=== PATIENT | male | born 1935 | race Caucasian/White ===

== ENCOUNTER → 2016-11-09 | Outpatient (CLI) | payer MEDICARE, BC ==
[2016-11-09 14:14] LABS: CALCIUM LEVEL 8.3 MG/DL (8.8-10.2)
== END ==
LOC: M WUC 12:07
PROVIDERS: ATTEND Internal Medicine Endocrinology, Diabetes & Metabolism
DX: E83.51 Hypocalcemia (principal)

== ENCOUNTER → 2016-12-08 | Outpatient (CLI) | payer MEDICARE, BC ==
[~2016-12-08] VITALS: Ht 172.7 cm; Wt 93.4 kg
[~2016-12-08] MED LIST: ASPI81TA85 PO; ATOR1TAB18 PO; CALC1CAP31 PO; CALCTAB41 PO; DERM0.014 AU; DORZ2OPD OD; FERR325T3 PO; FISH100049 PO; LATA5OPD OD; LEVO112T2 PO; LEVO75TA4 PO; LIDOCAINE 2% INJ 100 MG/5 ML SDV (FOR ANES.) As Ordered ONE; LISI-538 PO; LISI20TA3 PO; NS 1,000 ML IV SCH; POTA10TA2 PO; POTA20TA PO; POTA99TA PO; PROPOFOL 500 MG/50 ML VIAL As Ordered ONE; VITA100037 PO; VITA250011 PO
--- NOTE | 2016-12-08 08:56 | ROOR ---
Patient Name: Bebeto Samano Procedure Date: 12/08/2016 8:38 AM Date of : 1935 Age: 81 Room: [facility] Gender: Male Note Status: Finalized Procedure: Colonoscopy Indications: High risk colon cancer surveillance: Personal history of colonic polyps, Last colonoscopy: August 2013 Providers: Paulo PONCE MD Referring MD: JASWINDER BEY MD Requesting Provider: Medicines: Monitored Anesthesia Care Complications: No immediate complications. Procedure: Pre-Anesthesia Assessment: - The heart rate, respiratory rate, oxygen saturations, blood pressure, adequacy of pulmonary ventilation, and response to care were monitored throughout the procedure. The Colonoscope was introduced through the anus and advanced to the terminal ileum, with identification of the appendiceal orifice and IC valve. The colonoscopy was performed without difficulty. The patient tolerated the procedure well. The quality of the bowel preparation was good. Findings: The perianal and digital rectal examinations were normal. (Exam: Complete, Prep: Good or Excellent.) Internal hemorrhoids were found during retroflexion. The hemorrhoids were medium-sized. The entire examined colon appeared normal on direct and retroflexion views. Impression: - (Exam: Complete, Prep: Good or Excellent.) - Internal hemorrhoids. - The entire examined colon is normal on direct and retroflexion views. - No specimens collected. Recommendation: -Pt can stop surveillance/screening - Repeat colonoscopy As Needed. Paulo Ponce MD Paulo PONCE MD 12/08/2016 8:55:48 AM This report has been signed electronically. Number of Addenda: 0 Note Initiated On: 12/08/2016 8:38 AM Estimated Blood Loss: Estimated blood loss: none.
[2016-12-08 09:20] VITALS: BP 130/78
== END | disposition home or self-care (01) ==
LOC: M OPP 07:59
PROVIDERS: ATTEND Internal Medicine Gastroenterology
DX: Z12.11 Encounter for screening for malignant neoplasm of colon (principal); K64.8 Other hemorrhoids; I10 Essential (primary) hypertension; E78.00 Pure hypercholesterolemia, unspecified; M19.90 Unspecified osteoarthritis, unspecified site; J44.9 Chronic obstructive pulmonary disease, unspecified; J45.909 Unspecified asthma, uncomplicated; G47.30 Sleep apnea, unspecified; E03.9 Hypothyroidism, unspecified; Z97.2 Presence of dental prosthetic device (complete) (partial); Z97.4 Presence of external hearing-aid; Z87.891 Personal history of nicotine dependence; Z79.899 Other long term (current) drug therapy
CPT/HCPCS: 99156; G0105

== ENCOUNTER → 2017-02-27 | Outpatient (CLI) | payer MEDICARE, BC ==
[~2017-02-27] MED LIST changes: -LIDOCAINE 2% INJ 100 MG/5 ML SDV (FOR ANES.) As Ordered ONE; -NS 1,000 ML IV SCH; -POTA10TA2 PO; +POTA1TAB23 PO; -PROPOFOL 500 MG/50 ML VIAL As Ordered ONE
[2017-02-27 20:10] LABS: FREE T4 1.75 NG/DL (0.76-1.46)
== END ==
LOC: M WUC 15:11
PROVIDERS: ATTEND Physician Assistant Medical
DX: E83.51 Hypocalcemia (principal)

== ENCOUNTER → 2017-04-03 | Outpatient (CLI) | payer MEDICARE, BC ==
[~2017-04-03] MED LIST changes: -ATOR1TAB18 PO; +ATOR80TA59 PO; -VITA100037 PO; +VITA100067 PO
--- NOTE | 2017-04-03 15:11 | REP ---
CERVICAL SPINE SERIES: Full eight-view cervical spine series is performed. There is no compression fracture or malalignment, with normal cervical lordosis. There is no prevertebral soft tissue swelling. Moderate spurring is seen anteriorly at C4 with mild spurring of C5 through C7. Disc spaces are relatively well maintained. There is diffuse moderate narrowing, sclerosis and spurring at the posterior facet joints. I do not see radiographic evidence of significant neural foraminal narrowing. IMPRESSION: Diffuse degenerative changes as above. Signed by Brad Smiley MD 04/03/2017 05:13 P
== END ==
LOC: M RAD 14:31
PROVIDERS: ATTEND Family Medicine
DX: M54.2 Cervicalgia (principal)
CPT/HCPCS: 72052; G0463

== ENCOUNTER → 2017-04-18 | Outpatient (CLI) | payer MEDICARE, BC ==
[~2017-04-18] MED LIST changes: +ATOR1TAB18 PO; -ATOR80TA59 PO; +VITA100037 PO; -VITA100067 PO
== END ==
LOC: M WUC 14:35
PROVIDERS: ATTEND Nurse Practitioner Women's Health
DX: Z85.46 Personal history of malignant neoplasm of prostate (principal)

== ENCOUNTER → 2017-05-02 | Outpatient (CLI) | payer MEDICARE, BC ==
[~2017-05-02] MED LIST changes: -ATOR1TAB18 PO; +ATOR80TA59 PO; -VITA100037 PO; +VITA100067 PO
[2017-05-02 13:50] LABS: CALCIUM LEVEL 8.3 MG/DL (8.8-10.2)
[2017-05-02 13:58] LABS: FREE T4 1.64 NG/DL (0.76-1.46)
== END ==
LOC: M WUC 10:10
PROVIDERS: ATTEND Internal Medicine Endocrinology, Diabetes & Metabolism
DX: E89.0 Postprocedural hypothyroidism (principal)

== ENCOUNTER → 2017-05-12 | Outpatient (REF) | payer MEDICARE, BC | LOC: M SFHCPLAZ 15:53 | PROVIDERS: ATTEND Family Medicine | DX: L82.1 Other seborrheic keratosis (principal) | CPT/HCPCS: 11100; 88305; G0463 ==

== ENCOUNTER → 2017-06-29 | Outpatient (REF) | payer MEDICARE, BC ==
[2017-06-29 14:11] LABS: FREE T4 1.81 NG/DL (0.76-1.46)
== END ==
LOC: M LABDRAW1 09:38
PROVIDERS: ATTEND Internal Medicine Endocrinology, Diabetes & Metabolism
DX: E89.0 Postprocedural hypothyroidism (principal)

== ENCOUNTER → 2017-09-25 | Outpatient (REF) | payer MEDICARE, BC ==
[2017-09-25 17:23] LABS: CALCIUM LEVEL 8.2 MG/DL (8.8-10.2)
== END ==
LOC: M LABDRAWP 15:35
PROVIDERS: ATTEND Internal Medicine Endocrinology, Diabetes & Metabolism
DX: E89.0 Postprocedural hypothyroidism (principal); E83.51 Hypocalcemia

== ENCOUNTER 2017-12-10 14:05 | Emergency (ER) | payer MEDICARE, BC | END 2017-12-10 17:27 | disposition left against medical advice (07) | LOC: M ED 14:05 | DX: Z53.21 Procedure and treatment not carried out due to patient leaving prior to being seen by health care provider (principal) ==

== ENCOUNTER → 2017-12-22 | Outpatient (REF) | payer MEDICARE, BC ==
[2017-12-22 17:51] LABS: ALBUMIN 3.4 GM/DL (3.2-5.2); ALBUMIN/GLOBULIN RATIO 1.21 (1.00-1.93); ALKALINE PHOSPHATASE 98 U/L (45-117); ALT/SGPT 15 U/L (12-78); ANION GAP 7 MEQ/L (8-16); AST/SGOT 16 U/L (7-37); BILIRUBIN,TOTAL 1.4 MG/DL (0.2-1.0); BLOOD UREA NITROGEN 22 MG/DL (7-18); CALCIUM LEVEL 7.9 MG/DL (8.8-10.2); CARBON DIOXIDE LEVEL 32 MEQ/L (21-32); CHLORIDE LEVEL 104 MEQ/L (98-107); CHOLESTEROL LEVEL 144 MG/DL (<200); CREATININE FOR GFR 0.94 MG/DL (0.70-1.30); GLOMERULAR FILTRATION RATE > 60.0 (>35); GLUCOSE, FASTING 88 MG/DL (70-100); HDL CHOLESTEROL 32 MG/DL (>40); LDL CHOLESTEROL 90.4 MG/DL (<100); NON-HDL-C 112 MG/DL; POTASSIUM SERUM 3.9 MEQ/L (3.5-5.1); SODIUM LEVEL 143 MEQ/L (136-145); TOTAL PROTEIN 6.2 GM/DL (6.4-8.2); TRIGLYCERIDES LEVEL 108 MG/DL (<150)
== END ==
LOC: M SFHCLERA 09:53
DX: R73.01 Impaired fasting glucose (principal); E78.6 Lipoprotein deficiency; E78.5 Hyperlipidemia, unspecified; E87.6 Hypokalemia; E83.51 Hypocalcemia; I10 Essential (primary) hypertension; E89.0 Postprocedural hypothyroidism
CPT/HCPCS: 84443

== ENCOUNTER → 2018-04-05 | Outpatient (CLI) | payer MEDICARE, BC ==
[2018-04-05 17:04] LABS: CALCIUM LEVEL 8.1 MG/DL (8.8-10.2)
[2018-04-05 17:04] LABS: FREE T4 1.35 NG/DL (0.76-1.46); PHOSPHORUS LEVEL 3.1 MG/DL (2.5-4.9)
== END ==
LOC: M WUC 13:41
DX: E89.0 Postprocedural hypothyroidism (principal); E83.51 Hypocalcemia
CPT/HCPCS: 82310

== ENCOUNTER → 2018-04-26 | Outpatient (REF) | payer MEDICARE, BC ==
[2018-04-26 16:17] LABS: ALBUMIN 3.4 GM/DL (3.2-5.2); ALKALINE PHOSPHATASE 110 U/L (45-117); ALT/SGPT 20 U/L (12-78); AST/SGOT 21 U/L (7-37); BILIRUBIN,DIRECT 0.3 MG/DL (0.0-0.2); BILIRUBIN,TOTAL 1.1 MG/DL (0.2-1.0); TOTAL PROTEIN 6.5 GM/DL (6.4-8.2)
== END ==
LOC: M SFHCPLAZ 12:06
DX: R17 Unspecified jaundice (principal)
CPT/HCPCS: 80076

== ENCOUNTER 2018-05-01 10:18 | Emergency (ER) | payer MEDICARE, BC ==
[2018-05-01 12:55] LABS: BASO % 0.4 % (0.0-1.0); EOS # 0.4 10^3/uL (0.0-0.50); EOS % 5.1 % (0.0-3.0); HEMATOCRIT 39.4 % (42.0-52.0); HEMOGLOBIN 13.2 g/dl (13.5-17.5); IMMATURE GRANULOCYTE % 0.3 % (0-3.0); LYMPH # 1.5 10^3/uL (1.5-4.5); LYMPH % 21.2 % (24.0-44.0); MEAN CORPUSCULAR HEMOGLOBIN 30.5 pg (27.0-33.0); MEAN CORPUSCULAR HGB CONC 33.5 g/dl (32.0-36.5); MONO # 0.6 10^3/uL (0.0-0.8); MONO % 8.2 % (0.0-5.0); NEUTROPHILS # 4.6 10^3/uL (1.8-7.7); NEUTROPHILS % 64.8 % (36.0-66.0); PLATELET COUNT, AUTOMATED 219 10^3/uL (150-450); RED BLOOD COUNT 4.33 10^6/uL (4.30-6.10); RED CELL DISTRIBUTION WIDTH 13.2 % (11.5-14.5); WHITE BLOOD COUNT 7.1 10^3/uL (4.0-10.0)
[2018-05-01 13:09] LABS: INR 1.07
[2018-05-01 13:10] LABS: PARTIAL THROMBOPLASTIN TIME 32.9 SECONDS (25.4-37.6)
[2018-05-01 13:12] LABS: ANION GAP 5 MEQ/L (8-16); BLOOD UREA NITROGEN 17 MG/DL (7-18); CARBON DIOXIDE LEVEL 31 MEQ/L (21-32); CHLORIDE LEVEL 108 MEQ/L (98-107); CPK CREATINE PHOSPHOKINASE 82 U/L (39-308); CREATININE FOR GFR 0.95 MG/DL (0.70-1.30); FREE T4 1.35 NG/DL (0.76-1.46); GLOMERULAR FILTRATION RATE > 60.0 (>35); GLUCOSE, FASTING 93 MG/DL (70-100); MAGNESIUM LEVEL 1.7 MG/DL (1.8-2.4); POTASSIUM SERUM 4.1 MEQ/L (3.5-5.1); SODIUM LEVEL 144 MEQ/L (136-145); TROPONIN I < 0.02 NG/ML (< 0.10)
[2018-05-01 13:18] LABS: CK-MB VALUE MASS 1.7 NG/ML (<3.6); MB/CK RELATIVE INDEX 2.07 (< OR =4)
[2018-05-01] MEDS: MAGNESIUM OXIDE 400 MG TAB (MAG-OX) PO (14:38)
== END 2018-05-01 15:35 | disposition home or self-care (01) ==
LOC: M ED 10:18
DX: R42 Dizziness and giddiness (principal); R51 Headache; Z91.81 History of falling; I44.0 Atrioventricular block, first degree; I10 Essential (primary) hypertension; M19.90 Unspecified osteoarthritis, unspecified site; E78.5 Hyperlipidemia, unspecified; G47.30 Sleep apnea, unspecified; D50.9 Iron deficiency anemia, unspecified; Z85.46 Personal history of malignant neoplasm of prostate; H40.9 Unspecified glaucoma; Z85.850 Personal history of malignant neoplasm of thyroid; Z87.891 Personal history of nicotine dependence; Z79.899 Other long term (current) drug therapy
CPT/HCPCS: 71046

== ENCOUNTER → 2018-08-24 | Outpatient (CLI) | payer MEDICARE, BC ==
[2018-08-24 14:58] LABS: CALCIUM LEVEL 7.8 MG/DL (8.8-10.2)
[2018-08-24 14:58] LABS: FREE T4 1.27 NG/DL (0.76-1.46); PHOSPHORUS LEVEL 2.9 MG/DL (2.5-4.9)
[2018-08-29 08:47] LABS: FREE T4 BY DIALYSIS DIRECT 2.1 ng/dL (.)
== END ==
LOC: M WUC 11:20
DX: E89.0 Postprocedural hypothyroidism (principal)
CPT/HCPCS: 82310

== ENCOUNTER 2018-09-04 10:38 | Emergency (ER) | payer MEDICARE, BC | END 2018-09-04 12:51 | disposition home or self-care (01) | LOC: M ED 10:38 | DX: S80.01XA Contusion of right knee, initial encounter (principal); W01.0XXA Fall on same level from slipping, tripping and stumbling without subsequent striking against object, initial encounter; Y92.098 Other place in other non-institutional residence as the place of occurrence of the external cause; I10 Essential (primary) hypertension; E78.5 Hyperlipidemia, unspecified; J45.909 Unspecified asthma, uncomplicated; G47.33 Obstructive sleep apnea (adult) (pediatric); E03.9 Hypothyroidism, unspecified; Z96.651 Presence of right artificial knee joint; Z85.46 Personal history of malignant neoplasm of prostate; Z79.899 Other long term (current) drug therapy | CPT/HCPCS: 73564 ==

== ENCOUNTER → 2019-01-03 | Outpatient (CLI) | payer MEDICARE, BC ==
[~2019-01-03] MED LIST changes: +FERR1TAB8; +KLOR20TA42 PO; -POTA20TA PO
--- NOTE | 2019-01-03 14:20 | REP ---
RIGHT SHOULDER, THREE VIEWS: HISTORY: Pain. There is no acute fracture or dislocation. There is minimal narrowing of the glenohumeral joint space. There is moderate narrowing of the acromioclavicular joint space with associated osteophyte formation. Calcifications present lateral to the head of the humerus. This represents ligamentous or tendon calcification. IMPRESSION: Degenerative change as described above. Electronically Signed by Lauro Sultana MD 01/03/2019 02:37 P
== END ==
LOC: M RAD 13:35
PROVIDERS: ATTEND Nurse Practitioner Family
DX: M19.011 Primary osteoarthritis, right shoulder (principal); M25.511 Pain in right shoulder

== ENCOUNTER → 2019-02-11 | Outpatient (REF) | payer MEDICARE, BC ==
[~2019-02-11] MED LIST changes: +LATA0.0013 OD; -LATA5OPD OD
[2019-02-11 12:26] LABS: BLOOD UREA NITROGEN 21 MG/DL (7-18); CALCIUM LEVEL 8.2 MG/DL (8.8-10.2); CARBON DIOXIDE LEVEL 31 MEQ/L (21-32); CHLORIDE LEVEL 107 MEQ/L (98-107); CREATININE FOR GFR 1.02 MG/DL (0.70-1.30); GLOMERULAR FILTRATION RATE > 60.0 (>35); GLUCOSE, FASTING 93 MG/DL (70-100); POTASSIUM SERUM 4.4 MEQ/L (3.5-5.1); SODIUM LEVEL 141 MEQ/L (136-145); TOTAL 25(OH) VITAMIN D 41.4 NG/ML (30.0-100.0)
== END ==
LOC: M LABDRAW1 11:35
PROVIDERS: ATTEND Nurse Practitioner Family
DX: E89.0 Postprocedural hypothyroidism (principal); E83.51 Hypocalcemia

== ENCOUNTER → 2019-06-28 | Outpatient (REF) | payer MEDICARE, BC ==
[~2019-06-28] MED LIST changes: +LISI20TA20 PO; -LISI20TA3 PO
[2019-06-28 13:43] LABS: TOTAL 25(OH) VITAMIN D 54.2 NG/ML (30.0-100.0)
[2019-06-28 13:44] LABS: FREE T4 2.11 NG/DL (0.76-1.46); THYROID STIMULATING HORMONE 0.028 uIU/ML (0.358-3.740)
== END ==
LOC: M LABDRAW1 12:08
PROVIDERS: ATTEND Nurse Practitioner Family
DX: E83.51 Hypocalcemia (principal); E89.0 Postprocedural hypothyroidism

== ENCOUNTER → 2019-08-01 | Outpatient (REF) | payer MEDICARE, BC ==
[2019-08-01 12:31] LABS: HEMATOCRIT 43.2 % (42.0-52.0); HEMOGLOBIN 14.6 g/dl (13.5-17.5); MEAN CORPUSCULAR HEMOGLOBIN 30.5 pg (27.0-33.0); MEAN CORPUSCULAR HGB CONC 33.8 g/dl (32.0-36.5); MEAN CORPUSCULAR VOLUME 90.4 fl (80.0-96.0); PLATELET COUNT, AUTOMATED 218 10^3/uL (150-450); RED BLOOD COUNT 4.78 10^6/uL (4.30-6.10)
[2019-08-01 13:04] LABS: BLOOD UREA NITROGEN 17 MG/DL (7-18); CREATININE FOR GFR 0.94 MG/DL (0.70-1.30); GLUCOSE, FASTING 87 MG/DL (70-100)
[2019-08-01 13:05] LABS: ALBUMIN 3.5 GM/DL (3.2-5.2); ALT/SGPT 18 U/L (12-78); CALCIUM LEVEL 8.4 MG/DL (8.8-10.2); CARBON DIOXIDE LEVEL 30 MEQ/L (21-32); CHLORIDE LEVEL 105 MEQ/L (98-107); CHOLESTEROL LEVEL 126 MG/DL (<200); GLOMERULAR FILTRATION RATE > 60.0 (>35); HDL CHOLESTEROL 35 MG/DL (>40); LDL CHOLESTEROL 75 MG/DL (<100); NON-HDL-C 91 MG/DL; SODIUM LEVEL 142 MEQ/L (136-145); TOTAL PROTEIN 6.4 GM/DL (6.4-8.2); TRIGLYCERIDES LEVEL 81 MG/DL (<150)
== END ==
LOC: M SFHCPLAZ 10:16
PROVIDERS: ATTEND Family Medicine
DX: G47.33 Obstructive sleep apnea (adult) (pediatric) (principal); I10 Essential (primary) hypertension; R73.01 Impaired fasting glucose; E78.5 Hyperlipidemia, unspecified

== ENCOUNTER → 2019-08-27 | Outpatient (REF) | payer MEDICARE, BC ==
[2019-08-27 12:27] LABS: FREE T4 1.65 NG/DL (0.76-1.46); THYROID STIMULATING HORMONE 0.596 uIU/ML (0.358-3.740)
== END ==
LOC: M LABDRAW1 11:55
PROVIDERS: ATTEND Internal Medicine Endocrinology, Diabetes & Metabolism
DX: E89.0 Postprocedural hypothyroidism (principal)

== ENCOUNTER → 2019-11-27 | Outpatient (CLI) | payer MEDICARE, BC ==
[~2019-11-27] MED LIST changes: +DORZ2SOL5; +LATA0.0015
[2019-11-27 13:59] LABS: FREE T4 1.39 NG/DL (0.76-1.46); THYROID STIMULATING HORMONE 4.66 uIU/ML (0.358-3.740)
== END ==
LOC: M WUC 10:03
PROVIDERS: ATTEND Nurse Practitioner Family
DX: E89.0 Postprocedural hypothyroidism (principal)

== ENCOUNTER → 2020-04-02 | Outpatient (CLI) | payer MEDICARE, BC ==
[2020-04-02 16:29] LABS: FREE T4 1.43 NG/DL (0.76-1.46); THYROID STIMULATING HORMONE 6.78 uIU/ML (0.358-3.740)
== END ==
LOC: M LRY 11:41
PROVIDERS: ATTEND Nurse Practitioner Family
DX: E89.0 Postprocedural hypothyroidism (principal)

== ENCOUNTER → 2020-06-26 | Outpatient (CLI) | payer MEDICARE, BC ==
[~2020-06-26] MED LIST changes: -ASPI81TA85 PO; +ASPI81TA86 PO; +AZIT500T5 PO; +LISI10TA4; +PRED10TA2 PO; +PROAAER10 INH
[2020-06-26 13:05] LABS: HEMATOCRIT 40.9 % (42.0-52.0); HEMOGLOBIN 13.3 g/dl (13.5-17.5); MEAN CORPUSCULAR HEMOGLOBIN 29.7 pg (27.0-33.0); MEAN CORPUSCULAR HGB CONC 32.5 g/dl (32.0-36.5); MEAN CORPUSCULAR VOLUME 91.3 fl (80.0-96.0); PLATELET COUNT, AUTOMATED 202 10^3/uL (150-450); RED BLOOD COUNT 4.48 10^6/uL (4.30-6.10); WHITE BLOOD COUNT 8.7 10^3/uL (4.0-10.0)
[2020-06-26 13:14] LABS: MAU/CREAT RATIO 27.3 MCG/MG (0.0-30.0)
[2020-06-26 13:54] LABS: ALBUMIN 3.4 GM/DL (3.2-5.2); ALT/SGPT 21 U/L (12-78); BILIRUBIN,TOTAL 1.4 MG/DL (0.2-1.0); BLOOD UREA NITROGEN 23 MG/DL (7-18); CALCIUM LEVEL 7.8 MG/DL (8.8-10.2); CARBON DIOXIDE LEVEL 29 MEQ/L (21-32); CHLORIDE LEVEL 105 MEQ/L (98-107); CHOLESTEROL LEVEL 104 MG/DL (<200); CHOLESTEROL RISK RATIO 3.586 (<5); CREATININE FOR GFR 0.97 MG/DL (0.70-1.30); GLOMERULAR FILTRATION RATE > 60.0 (>35); GLUCOSE, FASTING 80 MG/DL (70-100); HDL CHOLESTEROL 29 MG/DL (>40); LDL CHOLESTEROL 59 MG/DL (<100); NON-HDL-C 75 MG/DL; POTASSIUM SERUM 3.8 MEQ/L (3.5-5.1); SODIUM LEVEL 142 MEQ/L (136-145); TOTAL PROTEIN 6.4 GM/DL (6.4-8.2); TRIGLYCERIDES LEVEL 81 MG/DL (<150)
[2020-06-26 14:29] LABS: TOTAL 25(OH) VITAMIN D 43.5 NG/ML (30.0-100.0)
[2020-06-26 15:59] LABS: HEMOGLOBIN A1c 5.7 %
== END ==
LOC: M LAB 11:16
PROVIDERS: ATTEND Family Medicine
DX: G47.33 Obstructive sleep apnea (adult) (pediatric) (principal); I10 Essential (primary) hypertension; R73.01 Impaired fasting glucose; E55.9 Vitamin D deficiency, unspecified; E89.0 Postprocedural hypothyroidism; Z79.899 Other long term (current) drug therapy

== ENCOUNTER 2020-07-02 09:33 | Emergency (ER) | payer MEDICARE, BC ==
[~2020-07-02] VITALS: Ht 170.2 cm; Wt 91.7 kg
[~2020-07-02 09:33] MED LIST changes: -AZIT500T5 PO; -LISI10TA4; -PRED10TA2 PO; -PROAAER10 INH
[2020-07-02] MEDS ORDERED: LISI10TA4 (10:30)
[2020-07-02] MEDS ORDERED: dexameTHASONE 20MG/5ML VIAL (J1100 PER 1MG) IV ONE (11:00)
[2020-07-02] MEDS: IPRATROPIUM 0.5MG/ALBUTEROL 2.5MG INH SOL UD 3ML (DUONEB) NEB PRN ×2 (11:21→11:25)
--- NOTE | 2020-07-02 11:21 | REPVR ---
PROCEDURE INFORMATION: Exam: XR Chest, 1 View Exam date and time: 07/02/2020 10:56 AM Age: 84 years old Clinical indication: Shortness of breath; Additional info: Dyspnea/cough TECHNIQUE: Imaging protocol: XR of the chest Views: Frontal portable upright view of the chest. COMPARISON: CR Chest, 2 view PA, Lat 05/01/2018 1:04 PM FINDINGS: Tubes, catheters and devices: EKG leads are present overlying the chest. Lungs: Mild left lateral basilar subsegmental atelectasis. The lungs are otherwise peripherally clear bilaterally. The pulmonary vasculature is normal. Pleural space: No pleural effusion. No pneumothorax. Heart/Mediastinum: The heart is normal in size and contour. Mediastinum: Stable. Vasculature: Mild tortuosity of the upper descending thoracic aorta. Bones/joints: Stable. IMPRESSION: Mild left lateral basilar subsegmental atelectasis. Electronically signed by: Duncan Medellin On 07/02/2020 11:21:26 AM
[2020-07-02 11:29] LABS: BASO % 0.4 % (0.0-1.0); EOS # 0.4 10^3/uL (0.0-0.5); EOS % 3.5 % (0.0-3.0); HEMATOCRIT 40.3 % (42.0-52.0); HEMOGLOBIN 13.4 g/dl (13.5-17.5); LYMPH # 1.3 10^3/uL (1.5-5.0); LYMPH % 12.4 % (24.0-44.0); MEAN CORPUSCULAR HEMOGLOBIN 29.8 pg (27.0-33.0); MEAN CORPUSCULAR HGB CONC 33.3 g/dl (32.0-36.5); MEAN CORPUSCULAR VOLUME 89.8 fl (80.0-96.0); MONO # 1.1 10^3/uL (0.0-0.8); MONO % 10.4 % (0.0-5.0); NEUTROPHILS # 7.4 10^3/uL (1.5-8.5); NEUTROPHILS % 72.9 % (36.0-66.0); PLATELET COUNT, AUTOMATED 247 10^3/uL (150-450); RED BLOOD COUNT 4.49 10^6/uL (4.30-6.10); WHITE BLOOD COUNT 10.2 10^3/uL (4.0-10.0)
[2020-07-02 12:00] VITALS: BP 156/71
[2020-07-02 12:00] LABS: BLOOD UREA NITROGEN 17 MG/DL (7-18); CARBON DIOXIDE LEVEL 28 MEQ/L (21-32); CHLORIDE LEVEL 108 MEQ/L (98-107); CK-MB VALUE MASS 1.7 NG/ML (<3.6); CPK CREATINE PHOSPHOKINASE 102 U/L (39-308); CREATININE FOR GFR 0.95 MG/DL (0.70-1.30); GLOMERULAR FILTRATION RATE > 60.0 (>35); GLUCOSE, FASTING 118 MG/DL (70-100); MB/CK RELATIVE INDEX 1.67 (< OR =4); NT-PRO BNP 576 PG/ML (<450); POTASSIUM SERUM 3.9 MEQ/L (3.5-5.1); SODIUM LEVEL 141 MEQ/L (136-145); TROPONIN I < 0.02 NG/ML (< 0.10)
[2020-07-02 12:37] VITALS: O2SAT 96
[2020-07-02] MEDS ORDERED: PROAAER10 INH (12:58)
[2020-07-02] MEDS ORDERED: PRED10TA2 PO (12:58)
[2020-07-02] MEDS ORDERED: AZIT500T5 PO (12:58)
--- NOTE | 2020-07-10 09:42 | ECGEPIP ---
[facility] - ED Test Date: 2020-07-02 Pat Name: MARIO BLOOM Department: Room: - Gender: Male [employer] Dietary Service Supervisor: aj : 1935 Requested By: Rc Montes Order Number: [id number] Reading MD: Rc Gloria Measurements Intervals [place] Rate: 71 P: 63 WI: 249 QRS: 37 QRSD: 96 T: 37 QT: 392 QTc: 428 Interpretive Statements SINUS RHYTHM WITH FIRST DEGREE AV BLOCK SEE SCANNED DOWNTIME REPORT
== END 2020-07-02 13:08 | disposition home or self-care (01) ==
LOC: M ED 09:33
DX: J44.1 Chronic obstructive pulmonary disease with (acute) exacerbation (principal); J45.909 Unspecified asthma, uncomplicated; I10 Essential (primary) hypertension; E78.5 Hyperlipidemia, unspecified; D50.9 Iron deficiency anemia, unspecified; G47.33 Obstructive sleep apnea (adult) (pediatric); M19.90 Unspecified osteoarthritis, unspecified site; Z79.899 Other long term (current) drug therapy
CPT/HCPCS: 71045; 80048; 82550; 82553; 83605; 83880; 84484; 85025; 87040; 93005; 93041; 94640; 94760; 96374; 99284; J1100

== ENCOUNTER → 2020-07-30 | Outpatient (CLI) | payer MEDICARE, BC ==
[~2020-07-30] MED LIST changes: +AZIT500T5 PO; +LISI10TA4; +PRED10TA2 PO; +PROAAER10 INH
[2020-07-30 11:39] LABS: FREE T4 1.3 NG/DL (0.76-1.46); THYROID STIMULATING HORMONE 17.9 uIU/ML (0.358-3.740)
== END ==
LOC: M LAB 08:31
PROVIDERS: ATTEND Nurse Practitioner Family
DX: E89.0 Postprocedural hypothyroidism (principal)

== ENCOUNTER 2020-08-11 08:15 | Emergency (ER) | payer MEDICARE, BC ==
[~2020-08-11] VITALS: Ht 170.2 cm; Wt 93.0 kg
[2020-08-11 08:15] VITALS: BP 155/80
--- NOTE | 2020-08-11 09:03 | REPVR ---
PROCEDURE INFORMATION: Exam: XR Left Shoulder Exam date and time: 08/11/2020 8:55 AM Age: 85 years old Clinical indication: Pain; Shoulder; Left TECHNIQUE: Imaging protocol: XR Left shoulder. Views: 2 or more views. COMPARISON: No relevant prior studies available. FINDINGS: Bones/joints: No acute fracture is identified. There is moderate acromioclavicular arthrosis. Mild osteophyte formation is present about the glenohumeral joint. There is mild productive change along the greater tuberosity. A small osteochondroma projects off the posterior aspect of the distal scapula. There is no osseous erosion or cortical destruction. No focal lytic or blastic lesion is identified. Soft tissues: The soft tissues appear grossly unremarkable. IMPRESSION: 1. Degenerative changes as described. 2. Small osteochondroma projecting off the posterior aspect of the distal scapula. Electronically signed by: Ricky Armendariz On 08/11/2020 09:02:54 AM
[2020-08-11] MEDS ORDERED: ACETAMINOPHEN 325 MG TAB As Ordered ONE (09:24)
[2020-08-11] MEDS ORDERED: ACETAMINOPHEN 325 MG TAB PO ONE (09:30)
[2020-08-11] MEDS ORDERED: BOOSTRIX/ADACEL VACCINE (DIPHTH/PERTUSS/ACELL/TETANUS) 0.5ML SYR IM ONE (09:45)
== END 2020-08-11 09:59 | disposition home or self-care (01) ==
LOC: M ED 08:15
DX: S46.912A Strain of unspecified muscle, fascia and tendon at shoulder and upper arm level, left arm, initial encounter (principal); X50.0XXA Overexertion from strenuous movement or load, initial encounter; Y92.9 Unspecified place or not applicable; Y93.9 Activity, unspecified; Y99.9 Unspecified external cause status; C61 Malignant neoplasm of prostate; I10 Essential (primary) hypertension; E78.5 Hyperlipidemia, unspecified; E03.9 Hypothyroidism, unspecified; J44.9 Chronic obstructive pulmonary disease, unspecified; Z87.891 Personal history of nicotine dependence

== ENCOUNTER → 2020-09-10 | Outpatient (CLI) | payer MEDICARE, BC ==
[~2020-09-10] MED LIST changes: -DORZ2SOL5; +DORZ2SOL5 OD; +GABA-843 PO; -LATA0.0015; +LATA0.0015 OD; +LEVO150T7 PO; -LISI10TA4; +LISI10TA4 PO; +PRED20TA PO
[2020-09-10 13:23] LABS: BASO % 0.4 % (0.0-1.0); EOS # 0.4 10^3/uL (0.0-0.5); EOS % 5.8 % (0.0-3.0); HEMATOCRIT 42.3 % (42.0-52.0); LYMPH # 1.4 10^3/uL (1.5-5.0); LYMPH % 18.9 % (24.0-44.0); MEAN CORPUSCULAR HEMOGLOBIN 28.8 pg (27.0-33.0); MEAN CORPUSCULAR HGB CONC 30.7 g/dl (32.0-36.5); MEAN CORPUSCULAR VOLUME 93.8 fl (80.0-96.0); MONO # 0.7 10^3/uL (0.0-0.8); MONO % 9.6 % (0.0-5.0); NEUTROPHILS # 4.9 10^3/uL (1.5-8.5); PLATELET COUNT, AUTOMATED 209 10^3/uL (150-450); RED BLOOD COUNT 4.51 10^6/uL (4.30-6.10); WHITE BLOOD COUNT 7.5 10^3/uL (4.0-10.0)
[2020-09-10 13:51] LABS: ALBUMIN 3.4 GM/DL (3.2-5.2); ALT/SGPT 23 U/L (12-78); BLOOD UREA NITROGEN 24 MG/DL (7-18); CALCIUM LEVEL 8.4 MG/DL (8.8-10.2); CARBON DIOXIDE LEVEL 32 MEQ/L (21-32); CHLORIDE LEVEL 106 MEQ/L (98-107); CREATININE FOR GFR 1.11 MG/DL (0.70-1.30); FOLATE 17.4 NG/ML (>5.4); FREE T4 1.42 NG/DL (0.76-1.46); GLOMERULAR FILTRATION RATE > 60.0 (>35); GLUCOSE, FASTING 81 MG/DL (70-100); POTASSIUM SERUM 4.1 MEQ/L (3.5-5.1); RHEUMATOID FACTOR QUANT < 10.0 IU/ML (<15.0); SODIUM LEVEL 142 MEQ/L (136-145); TOTAL PROTEIN 6.4 GM/DL (6.4-8.2); VITAMIN B12 LEVEL 1378 PG/ML (247-911)
[2020-09-10 14:02] LABS: ERYTHROCYTE SEDIMENTATION RATE 15 mm/hr (0-20)
[2020-09-18 19:07] LABS: ANTINUCLEAR ANTIBODIES DIRECT Negative (Negative); VITAMIN B6,PYRIDOXAL PHOSPHATE 14.5 ug/L (5.3-46.7); VITAMIN E(ALPHA TOCOPHEROL) 9.3 mg/L (9.0-29.0); VITAMIN E(GAMMA TOCOPHEROL) 1.4 mg/L (0.5-4.9)
== END ==
LOC: M PLALAB 11:14
PROVIDERS: ATTEND Psychiatry & Neurology Neurology
DX: E07.9 Disorder of thyroid, unspecified (principal); F03.90 Unspecified dementia, unspecified severity, without behavioral disturbance, psychotic disturbance, mood disturbance, and anxiety; R41.3 Other amnesia; E53.8 Deficiency of other specified B group vitamins; Z23 Encounter for immunization
CPT/HCPCS: 36415; 80053; 82607; 82746; 84207; 84425; 84439; 84443; 84446; 85025; 85652; 86038; 86431; 86780; 90682; G0008; G0463

== ENCOUNTER → 2020-09-24 | Outpatient (CLI) | payer MEDICARE, BC ==
[~2020-09-24] MED LIST changes: +DORZ2SOL5; -DORZ2SOL5 OD; -GABA-843 PO; +LATA0.0015; -LATA0.0015 OD; -LEVO150T7 PO; +LISI10TA4; -LISI10TA4 PO; -PRED20TA PO
[2020-09-24 12:23] LABS: FREE T4 1.48 NG/DL (0.76-1.46); THYROID STIMULATING HORMONE 3.34 uIU/ML (0.358-3.740)
== END ==
LOC: M LAB 10:06
PROVIDERS: ATTEND Nurse Practitioner Family
DX: E89.0 Postprocedural hypothyroidism (principal)

== ENCOUNTER → 2020-10-03 | Outpatient (CLI) | payer MEDICARE, BC ==
[~2020-10-03] MED LIST changes: -DORZ2SOL5; +DORZ2SOL5 OD; +GABA-843 PO; -LATA0.0015; +LATA0.0015 OD; +LEVO150T7 PO; -LISI10TA4; +LISI10TA4 PO; +PRED20TA PO
--- NOTE | 2020-10-03 15:17 | REP ---
INDICATION: COVID-19,CHRONIC OBSTRUCTIVE PULMONARY DISEASE COMPARISON: 09/04/2019. TECHNIQUE: PA/Lateral FINDINGS: Lungs: There mild basilar fibrotic changes. No acute infiltrate is seen. Heart: Normal in size. Mediastinum: Mediastinal silhouette unremarkable. Pleural angles: Unremarkable.. Bones and soft tissues: There are mild degenerative changes of the spine without compression deformity. IMPRESSION: No acute pulmonary disease. <Electronically signed by Brad Smiley > 10/03/20 [id number]
== END ==
LOC: M RAD 14:01
DX: U07.1 COVID-19 (principal); J44.1 Chronic obstructive pulmonary disease with (acute) exacerbation; Z20.828 Contact with and (suspected) exposure to other viral communicable diseases

== ENCOUNTER 2020-10-22 16:20 | Emergency (ER) | payer MEDICARE, BC ==
[~2020-10-22] VITALS: Ht 170.2 cm; Wt 91.8 kg
[2020-10-22 16:20] VITALS: BP 142/79
[2020-10-22] MEDS ORDERED: ALBU83IN (16:54)
== END 2020-10-22 17:40 | disposition home or self-care (01) ==
LOC: M ED 16:20
DX: I10 Essential (primary) hypertension (principal); E03.9 Hypothyroidism, unspecified; Z79.899 Other long term (current) drug therapy

== ENCOUNTER → 2021-02-04 | Outpatient (CLI) | payer MEDICARE, BC ==
[~2021-02-04] MED LIST changes: +ALBU83IN; +GABA-282 PO; -GABA-843 PO; -LISI-538 PO; +LISI10TA22 PO; -LISI10TA4 PO; +LISI20TA33 PO
[2021-02-04 10:08] LABS: BASO % 0.4 % (0.0-1.0); EOS # 0.3 10^3/uL (0.0-0.5); EOS % 3.5 % (0.0-3.0); HEMATOCRIT 43.2 % (42.0-52.0); HEMOGLOBIN 13.6 g/dl (13.5-17.5); LYMPH # 1.5 10^3/uL (1.5-5.0); LYMPH % 16.5 % (24.0-44.0); MEAN CORPUSCULAR HEMOGLOBIN 28.6 pg (27.0-33.0); MEAN CORPUSCULAR HGB CONC 31.5 g/dl (32.0-36.5); MEAN CORPUSCULAR VOLUME 90.9 fl (80.0-96.0); MONO # 0.9 10^3/uL (0.0-0.8); MONO % 9.4 % (2.0-8.0); NEUTROPHILS # 6.3 10^3/uL (1.5-8.5); NEUTROPHILS % 69.6 % (36.0-66.0); PLATELET COUNT, AUTOMATED 206 10^3/uL (150-450); RED BLOOD COUNT 4.75 10^6/uL (4.30-6.10); WHITE BLOOD COUNT 9.1 10^3/uL (4.0-10.0)
[2021-02-04 10:40] LABS: MALB URINE SIEMENS 44.2 MG/L; MAU/CREAT RATIO 20.4 MCG/MG (0.0-30.0)
[2021-02-04 10:54] LABS: ALBUMIN 3.4 GM/DL (3.2-5.2); ALT/SGPT 29 U/L (12-78); BILIRUBIN,TOTAL 1.1 MG/DL (0.2-1.0); BLOOD UREA NITROGEN 23 MG/DL (7-18); CALCIUM LEVEL 8.2 MG/DL (8.8-10.2); CARBON DIOXIDE LEVEL 29 MEQ/L (21-32); CHLORIDE LEVEL 107 MEQ/L (98-107); CHOLESTEROL LEVEL 117 MG/DL (<200); CHOLESTEROL RISK RATIO 3.162 (<5); CREATININE FOR GFR 1.09 MG/DL (0.70-1.30); FERRITIN 68 NG/ML (26-388); GLOMERULAR FILTRATION RATE > 60.0 (>35); GLUCOSE, FASTING 94 MG/DL (70-100); HDL CHOLESTEROL 37 MG/DL (>40); IRON (FE) 53 UG/DL (65-175); LDL CHOLESTEROL 63 MG/DL (<100); NON-HDL-C 80 MG/DL; PERCENT SATURATION 25.6 % (19.7-50.0); POTASSIUM SERUM 4.1 MEQ/L (3.5-5.1); PROSTATIC SPECIFIC AG MONITOR 0.97 NG/ML (< 4.00); SODIUM LEVEL 142 MEQ/L (136-145); TOTAL IRON BINDING CAPACITY 207 UG/DL (250-450); TOTAL PROTEIN 6.4 GM/DL (6.4-8.2); TRIGLYCERIDES LEVEL 83 MG/DL (<150)
[2021-02-04 13:43] LABS: PTH INTACT 15.1 PG/ML (18.5-88.0); TOTAL 25(OH) VITAMIN D 34.6 NG/ML (30.0-100.0)
[2021-02-04 18:40] LABS: HEMOGLOBIN A1c 5.7 %
== END ==
LOC: M WUC 08:30
PROVIDERS: ATTEND Family Medicine
DX: G47.33 Obstructive sleep apnea (adult) (pediatric) (principal); D50.8 Other iron deficiency anemias; E55.9 Vitamin D deficiency, unspecified; E20.9 Hypoparathyroidism, unspecified; E78.6 Lipoprotein deficiency; I10 Essential (primary) hypertension; R73.01 Impaired fasting glucose; Z85.46 Personal history of malignant neoplasm of prostate

== ENCOUNTER → 2021-02-17 | Outpatient (CLI) | payer MEDICARE, BC ==
--- NOTE | 2021-02-17 09:35 | REP ---
INDICATION: PAIN. COMPARISON: 09/04/2018 and 07/10/2007 TECHNIQUE: Bilateral standing view, standing lateral view right knee, sunrise view right knee FINDINGS: There are bilateral knee prostheses status quo. There is no plain radiographic evidence of abnormal lucency surrounding the prostheses. There is no acute fracture, dislocation, or subluxation. There has been no significant change compared to the prior exams. IMPRESSION: No acute abnormality is noted. <Electronically signed by Nick Law > 02/17/21 [id number]
== END ==
LOC: M SOG 02-16 11:30
PROVIDERS: ATTEND Orthopaedic Surgery Adult Reconstructive Orthopaedic Surgery
DX: M25.561 Pain in right knee (principal); Z96.653 Presence of artificial knee joint, bilateral

== ENCOUNTER 2021-04-06 12:50 | Observation (INO) | payer BC, MEDICARE ==
[~2021-04-06] VITALS: Ht 171.4 cm; Wt 87.9 kg
[2021-04-06 14:31] LABS: BASO # 0.1 10^3/uL (0.0-0.2); BASO % 0.6 % (0.0-1.0); EOS # 0.3 10^3/uL (0.0-0.5); EOS % 3.4 % (0.0-3.0); HEMATOCRIT 40.7 % (42.0-52.0); LYMPH # 1.6 10^3/uL (1.5-5.0); MEAN CORPUSCULAR HEMOGLOBIN 29.1 pg (27.0-33.0); MEAN CORPUSCULAR HGB CONC 31.9 g/dl (32.0-36.5); MEAN CORPUSCULAR VOLUME 91.1 fl (80.0-96.0); MONO # 0.8 10^3/uL (0.0-0.8); NEUTROPHILS % 68.7 % (36.0-66.0); PLATELET COUNT, AUTOMATED 232 10^3/uL (150-450); RED BLOOD COUNT 4.47 10^6/uL (4.30-6.10); WHITE BLOOD COUNT 8.7 10^3/uL (4.0-10.0)
--- NOTE | 2021-04-06 14:55 | REP ---
INDICATION: CHEST PAIN COMPARISON: 10/03/2020. TECHNIQUE: PA/Lateral FINDINGS: Lungs: There is no acute infiltrate. Bibasilar fibrotic changes stable. Heart: Normal in size. Mediastinum: There is calcification of the thoracic aorta. The mediastinal silhouette is unchanged. Pleural angles: Unremarkable.. Bones and soft tissues: There are degenerative changes of the spine without compression deformity. IMPRESSION: No acute pulmonary disease. Stable chronic changes. <Electronically signed by Brad Smiley > 04/06/21 [id number]
[2021-04-06 15:34] LABS: ALBUMIN 3.4 GM/DL (3.2-5.2); ALT/SGPT 22 U/L (12-78); BILIRUBIN,DIRECT 0.2 MG/DL (0.0-0.2); BILIRUBIN,TOTAL 0.9 MG/DL (0.2-1.0); BLOOD UREA NITROGEN 21 MG/DL (7-18); CALCIUM LEVEL 8.1 MG/DL (8.8-10.2); CARBON DIOXIDE LEVEL 27 MEQ/L (21-32); CHLORIDE LEVEL 111 MEQ/L (98-107); CK-MB VALUE MASS 1.9 NG/ML (<3.6); CPK CREATINE PHOSPHOKINASE 82 U/L (39-308); CREATININE FOR GFR 0.89 MG/DL (0.70-1.30); FREE T4 1.43 NG/DL (0.76-1.46); GLOMERULAR FILTRATION RATE > 60.0 (>35); GLUCOSE, FASTING 103 MG/DL (70-100); LIPASE 82 U/L (73-393); MB/CK RELATIVE INDEX 2.32 (< OR =4); SODIUM LEVEL 145 MEQ/L (136-145); TOTAL PROTEIN 5.9 GM/DL (6.4-8.2); TROPONIN I < 0.02 NG/ML (< 0.10)
[2021-04-06 19:46] LABS: CK-MB VALUE MASS 1.2 NG/ML (<3.6); MB/CK RELATIVE INDEX 1.58 (< OR =4); TROPONIN I 0.02 NG/ML (< 0.10)
[2021-04-06] MEDS ORDERED: LABETALOL 100MG/20ML VIAL IV STA (20:28)
--- NOTE | 2021-04-06 21:08 | ECGEPIP ---
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
--- NOTE | 2021-04-06 21:17 | ECGEPIP ---
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
[2021-04-06] MEDS ORDERED: MAALOX 30 ML SUSP *UDC PO PRN (21:35)
[2021-04-06] MEDS ORDERED: hydrALAZINE 20MG/ML 1ML VIAL (J0360 PER 20MG) IV PRN (21:35)
[2021-04-06] MEDS ORDERED: MOM 30ML SUSPENSION UDC PO PRN (21:35)
[2021-04-06] MEDS ORDERED: ACETAMINOPHEN TAB 650MG DOSE (2X325MG) PO PRN (21:35)
[2021-04-06] MEDS ORDERED: VITMTA PO (21:53)
[2021-04-06] MEDS ORDERED: ALBU8.5H INH (21:53)
[2021-04-06] MEDS ORDERED: FISH1000 PO (21:53)
[2021-04-06] MEDS ORDERED: FERR1TAB8 PO (21:53)
[2021-04-06] MEDS ORDERED: D31000TA2 PO (21:53)
[2021-04-06 21:56] LABS: RSV AMPLIFICATION NEGATIVE (NEGATIVE)
--- NOTE | 2021-04-06 22:01 | HPEPDOC ---
[facility] Medical History & Physical Date of Admission Apr 06, 2021 Date of Service: Apr 06, 2021 Primary Care Physician: Joe Reynoso MD Attending Physician: THUY RODRIGUEZ History and Physical CHIEF COMPLAINT: Feeling of vibration in the left chest HISTORY OF PRESENT ILLNESS: Mr. Samano is an 85-year-old male who presented to the ER this evening with complaints of feeling a vibration in his left chest. The patient states he was awakened from sleep last night with a feeling like a cell phone was stuck in his left chest. He states he felt it again in the morning. He called his primary care provider, Dr. Reynoso, when he continued to have that feeling intermittently throughout the day and finally felt some radiation of the vibration to his left shoulder and upper arm. He denied any chest pain or shortness of breath. He was advised, by his PCP, to present to the ER. The patient has a history of hyper tension and says he has been checking his blood pressure about 4 times per day for the last couple of months. He said his blood pressure has been elevated at 180-190 systolic. He has an appointment with Dr. Reynoso next week and planned to address his hypertension with him at that time. He also complains that he has been awakened from sleep twice in the last month with nosebleeds. The patient tells me that he is very active, walking 3 miles per day. 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 He has a history of chronic obstructive pulmonary disease but does not require oxygen. He also has a history of sleep apnea but has not used his CPAP in about 3 years. The patient has also had 3 episodes of urinary incontinence with a history of prostate cancer. He does not take any medications for BPH. He is scheduled to see a urologist tomorrow. On initial evaluation patient's workup for possible acute coronary syndrome was negative with EKG normal and troponin within normal limits as well. His chest x- ray was clear. The ER provider, Dr. Delong, discussed the case with the patient's primary care provider, Dr. Reynoso. The original plan was for the patient to discharge home and follow-up with Dr. Reynoso as outpatient. However, the patient was noted to have hypertensive emergency with blood pressure elevated above 228/105. Blood pressure was 130/73 on arrival to the ER. Patient was given 10 mg of lisinopril, but blood pressure did not improve. The decision was made to admit the patient for treatment of hypertensive emergency. Labs were unremarkable except for elevated TSH at 6.27 with a history of thyroidectomy secondary to thyroid cancer. The patient states he has been taking his hormone replacement as prescribed. PAST MEDICAL HISTORY: 1. Obstructive sleep apnea, noncompliant with CPAP. 2. Hypothyroid. 3. Hyperparathyroid. 4. Vitamin D deficiency. 5. Hyperlipidemia. 6. Depression. 7. Iron deficiency anemia. 8. Hypertension. 9. Open angle glaucoma. 10. Low testosterone. 11. Obesity. 12. Insomnia. 13. Prostate cancer treated with radiation. 14. Thyroid cancer. 15. Chronic obstructive pulmonary disease. PAST SURGICAL HISTORY: 1. Appendectomy. 2. Tonsils and adenoidectomy. 3. Knee replacement. 4. Prostate biopsy. 5. Colonoscopy. 6. Trigger finger release.. 7. Thyroidectomy SOCIAL HISTORY: Tobacco use:, Quit in 2004 with a [id number] history ETOH:. Rare Illicit drug use:, None Patient lives with: FAMILY HISTORY: . Patient's father is with a history of prostate cancer and hyperte nsion. His mother is also and had a history of diabetes and hypertension. REVIEW OF SYSTEMS: Complete 10 point review systems is negative except as noted above PHYSICAL EXAMINATION: Patient is seen in the ER, sitting up in a chair eating dinner.. He is alert and oriented x 3. HEENT is WNL. Neck is supple. Lungs are clear to auscultation. Heart regular rate and rhythm without murmur. . He denies any chest pain or feeling of vibration. No pain with palpation. Abdomen is soft, non-tender to palpation with bowel sounds positive. Extremities with good ROM and strength equal bilaterally. No lower extremity edema. Pedal pulses are positive. Skin is warm and dry with no obvious rash or lesion. Neuro: grossly intact. Psych: He is pleasant and cooperative. ASSESSMENT AND PLAN: 1. Hypertensive emergency. Will give the patient 1 dose of hydralazine and add hydralazine as needed every 4 hours. Will increase lisinopril to 20 mg daily and add Norvasc as well. Monitor with routine vital signs and continue to adjust medications as needed based on trends. 2. Atypical chest pain presentation in the setting of hypertensive emergency. We'll continue to monitor serial troponins. We'll monitor the patient on telemetry. Continue statin. Will start the patient on daily aspirin. 3. Obstructive sleep apnea with patient noncompliant with CPAP. Will have oxygen available for use as needed. 4. Hypothyroid with elevated TSH. Will increase home dose of levothyroxine. Follow-up with primary care provider and recheck TSH in 4-6 weeks. 5. Hyperlipidemia. Continue statin. 6. Chronic obstructive pulmonary disease with no acute exacerbation. Encourage good pulmonary toilet. Oxygen available as needed. Continue home inhaler as needed. 7. Anemia, chronic, with iron deficiency. Continue iron supplementation and monitor hemoglobin and hematocrit with daily labs. 8. DVT prophylaxis. Will add Lovenox. Code status: CODE STATUS was discussed with the patient desires to be considered a full code. He states his son, Bebeto or his daughter, Morelia would act as his surrogates if he were unable to make his decisions. Patient is considered high risk for further deterioration including possible cardiac arrest. He is admitted for close observation and further evaluation and expected to remain at least one midnight. Vital Signs Vital Signs Date Time Temp Pulse Resp B/P (MAP) Pulse Ox O2 Delivery O2 Flow Rate FiO2 04/06/21 21:36 66 16 130/73 (92) 98 Room Air 04/06/21 18:22 96.4 Laboratory Data Labs 24H Laboratory Tests 2 04/06/21 14:20: Immature Granulocyte % (Auto) 0.3, Neutrophils (%) (Auto) 68.7H, Lymphocytes (%) (Auto) 18.0L, Monocytes (%) (Auto) 9.0H, Eosinophils (%) (Auto) 3.4H, Basophils (%) (Auto) 0.6, Neutrophils # (Auto) 6.0, Lymphocytes # (Auto) 1.6, Monocytes # (Auto) 0.8, Eosinophils # (Auto) 0.3, Basophils # (Auto) 0.1, Nucleated Red Bloo d Cells % (auto) 0.0, Anion Gap 7L, Glomerular Filtration Rate > 60.0, Calcium Level 8.1L, Total Bilirubin 0.9, Direct Bilirubin 0.2, Aspartate Amino Transf (AST/SGOT) 18, Alanine Aminotransferase (ALT/SGPT) 22, Alkaline Phosphatase 128H, Total Creatine Kinase 82, Creatine Kinase MB 1.9, Creatine Kinase MB Relative Index 2.32, Troponin I < 0.02, Total Protein 5.9L, Albumin 3.4, Albumin/Globulin Ratio 1.4, Lipase 82, Thyroid Stimulating Hormone (TSH) 6.270H, Free Thyroxine 1.43 04/06/21 19:00: Total Creatine Kinase 76, Creatine Kinase MB 1.2, Creatine Kinase MB Relative Index 1.58, Troponin I 0.02 04/06/21 20:51: CBC/BMP Laboratory Tests 04/06/21 14:20 Home Medications Scheduled Atorvastatin Calcium (Atorvastatin Calcium) 80 Mg Tab, 80 MG PO DAILY TAKES AT LUNCHTIME Cholecalciferol (Vitamin D3) (Vitamin D3) 1,000 Unit Tablet, 1,000 UNITS PO QPM TAKES AT DINNERTIME Dorzolamide HCl/Timolol Maleat (Dorzolamide-Timolol Eye Drops) 10 Ml Drops, 1 DROP OD BID Ferrous Sulfate (Ferrous Sulfate) 325 Mg Tablet, 325 MG PO BID Latanoprost/Pf (Latanoprost 0.005% Eye Drop) 7.5 Ml Drops, 1 DROP OD QHS Levothyroxine Sodium (Levothyroxine Sodium) 150 Mcg Tablet, 150 MCG PO DAILY Lisinopril (Lisinopril) 10 Mg Tablet, 10 MG PO DAILY Multivitamins (Thera M Plus Tablet) 1 Each Tablet, 1 TAB PO DAILY TAKES AT DINNERTIME [place]-3 Fatty Acids/Fish Oil (Fish Oil 1,000 mg Capsule) 1 Each Capsule, 1,000 MG PO QPM TAKES AT DINNERTIME Scheduled PRN Albuterol Sulfate (Albuterol Sulfate Hfa) 8.5 Gm Hfa.aer.ad, 2 PUFFS INH QID PRN for SHORTNESS OF BREATH Gabapentin (Gabapentin) 300 Mg Capsule, 600 MG PO BID PRN for PAIN Allergies Coded Allergies: No Known Allergies (Verified , 01/22/07) A-FIB/CHADSVASC A-FIB History Current/History of A-Fib/PAF?: No THUY RODRIGUEZ Apr 06, 2021 22:01
[2021-04-06] MEDS ORDERED: ALBUTEROL 90 MCG/ACT 8GM HFA INHALER INH PRN (22:15)
[2021-04-06] MEDS ORDERED: hydrALAZINE 20MG/ML 1ML VIAL (J0360 PER 20MG) IV ONE (22:15)
[2021-04-07] VITALS: BP 138/73
[2021-04-07 04:00] VITALS: BP 143/75
[2021-04-07] MEDS: FERROUS SULFATE 325MG TAB PO SCH ×2 (04:43→10:24)
[2021-04-07] MEDS: COSOPT OCUMETER PLUS 10ML (DORZOLAMIDE/TIMOLOL) OD SCH ×2 (04:44→10:24)
[2021-04-07 05:59] LABS: HEMATOCRIT 38.4 % (42.0-52.0); HEMOGLOBIN 12.5 g/dl (13.5-17.5); MEAN CORPUSCULAR HGB CONC 32.6 g/dl (32.0-36.5); MEAN CORPUSCULAR VOLUME 89.1 fl (80.0-96.0); PLATELET COUNT, AUTOMATED 204 10^3/uL (150-450); RED BLOOD COUNT 4.31 10^6/uL (4.30-6.10)
[2021-04-07] MEDS ORDERED: LEVOTHYROXINE 37.5MCG PER 1/2TAB (0.0375MG) PO SCH (06:00)
[2021-04-07] MEDS ORDERED: LEVOTHYROXINE 150MCG TABLET (0.15MG) PO SCH (06:00)
[2021-04-07 06:25] LABS: BLOOD UREA NITROGEN 19 MG/DL (7-18); CALCIUM LEVEL 7.8 MG/DL (8.8-10.2); CARBON DIOXIDE LEVEL 31 MEQ/L (21-32); CHLORIDE LEVEL 109 MEQ/L (98-107); GLOMERULAR FILTRATION RATE > 60.0 (>35); GLUCOSE, FASTING 97 MG/DL (70-100); MAGNESIUM LEVEL 1.8 MG/DL (1.8-2.4); POTASSIUM SERUM 3.8 MEQ/L (3.5-5.1); SODIUM LEVEL 144 MEQ/L (136-145)
[2021-04-07 08:00] VITALS: BP 158/85
[2021-04-07] MEDS ORDERED: AMLO1TAB25 PO (08:46)
[2021-04-07] MEDS ORDERED: LISI20TA33 PO (08:46)
[2021-04-07] MEDS ORDERED: ENOXAPARIN 40MG/0.4ML SYRINGE (J1650 PER 10MG) SC SCH (09:00)
[2021-04-07] MEDS ORDERED: ATORVASTATIN 20 MG TAB PO SCH (09:00)
[2021-04-07] MEDS ORDERED: ASPIRIN 81MG ENTERIC TABLET PO SCH (09:00)
[2021-04-07 10:24] VITALS: BP 158/85
--- NOTE | 2021-04-07 10:43 | DS.PDOC ---
Discharge Summary General Date of Admission Apr 06, 2021 at 12:51 Date of Discharge 04/07/2021 Primary Care Physician: Joe Reynoso MD Attending Physician: CHRISSIE VEGA MD Discharge Summary PROCEDURES PERFORMED DURING STAY: None. ADMITTING DIAGNOSES: Hypertensive urgency DISCHARGE DIAGNOSES: Hypertensive urgency without CHF First-degree AV block. COMPLICATIONS/CHIEF COMPLAINT: Vibration feeling in the left chest HISTORY OF PRESENT ILLNESS: Mr. Samano is an 85-year-old male who presented to the ER this evening with complaints of feeling a vibration in his left chest. The patient states he was awakened from sleep last night with a feeling like a c ell phone was stuck in his left chest. He states he felt it again in the morning. He called his primary care provider, Dr. Reynoso, when he continued to have that feeling intermittently throughout the day and finally felt some radiation of the vibration to his left shoulder and upper arm. He denied any chest pain or shortness of breath. He was advised, by his PCP, to present to the ER. The patient has a history of hypertension and says he has been checking his blood pressure about 4 times per day for the last couple of months. He said his blood pressure has been elevated at 180-190 systolic. He has an appointment with Dr. Reynoso next week and planned [facility] He also complains that he has been awakened from sleep twice in the last month with nosebleeds. The patient tells me that he is very active, walking 3 miles per day. 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 He has a history of chronic obstructive pulmonary disease but does not require oxygen. He also has a history of sleep apnea but has not used his CPAP in about 3 years. The patient has also had 3 episodes of urinary incontinence with a history of prostate cancer. He does not take any medications for BPH. He is scheduled to see a urologist tomorrow. On initial evaluation patient's workup for possible acute coronary syndrome was negative with EKG normal and troponin within normal limits as well. His chest x- ray was clear. The ER provider, Dr. Delong, discussed the case with the patient's primary care provider, Dr. Reynoso. The original plan was for the patient to discharge home and follow-up with Dr. Reynoso as outpatient. However, the patient was noted to have hypertensive urgency with blood pressure elevated above 228/105. Blood pressure was 130/73 on arrival to the ER. Patient was given 10 mg of lisinopril, but blood pressure did not improve. The decision was made to admit the patient for treatment of hypertensive urgency. Labs were unremarkable except for elevated TSH at 6.27 with a history of thyroidectomy secondary to thyroid cancer. The patient states he has been taking his hormone replacement as prescribed. PMH: 1. Obstructive sleep apnea, noncompliant with CPAP. 2. Hypothyroid. 3. Hyperparathyroid. 4. Vitamin D deficiency. 5. Hyperlipidemia. 6. Depression. 7. Iron deficiency anemia. 8. Hypertension. 9. Open angle glaucoma. 10. Low testosterone. 11. Obesity. 12. Insomnia. 13. Prostate cancer treated with radiation. 14. Thyroid cancer. 15. Chronic obstructive pulmonary disease. HOSPITAL COURSE: Patient received IV labetalol 10 mg once. His home dose of 10 mg lisinopril was held and 20 mg lisinopril daily was administered. Patient was also started on amlodipine 10 mg daily. Aspirin 81 mg and atorvastatin 80 mg was administered as well. Patient's TSH level was elevated on admission as noted in HPI above. First degree AV block was found in the emergency room EKG, and on repeat EKG in the emergency room, although pt did not have ongoing chest symptoms during the rest of his hospital course. DISCHARGE MEDICATIONS: Please see below. ALLERGIES: Please see below. PHYSICAL EXAMINATION ON DISCHARGE: VITAL SIGNS: Please see below. GENERAL: All appearing in no acute distress, sitting comfortably in bedside chair. HEENT: Normocephalic, atraumatic, ears patent, left central opaqueness to pupil CARDIOVASCULAR EXAMINATION: Regular rate and rhythm, no murmurs, rubs or gallops auscultated RESPIRATORY EXAMINATION: Clear to auscultation bilaterally ABDOMINAL EXAMINATION: Soft, nontender, nondistended, no sounds present EXTREMITIES: No clubbing, edema appreciated, pedal pulses +2 bilaterally NEUROLOGICAL EXAMINATION: Gross upper and lower extremity strength 5 out of 5 PSYCHIATRIC EXAMINATION: Affect full and open LABORATORY DATA: Please see below. IMAGING: CXR 04/06/2021 No acute pulmonary disease. Stable chronic changes. PROGNOSIS: Fair ACTIVITY: As tolerated. DIET: 2 g sodium diet DISPOSITION: Discharge home and follow-up with PCP for adjustment of levothyroxine dosage. DISCHARGE INSTRUCTIONS: Please follow-up with PCP within the next 3-5 days. Please continue lisinopril at increased dose of 20 mg daily. Please continue amlodipine 10 mg daily. I highly recommend PCP to follow up elevated TSH level, and adjust levothyroxine dosage as deemed appropriate, considering patient's thyroid cancer history. Recommendation of cardiology referral due to patient's first degree AV block found on the ED EKG upon admission, although pt did not have ongoing symptoms during hospital course. DISCHARGE CONDITION: Stable. TIME SPENT ON DISCHARGE: 36 minutes. Vital Signs/I&Os Vital Signs Date Time Temp Pulse Resp B/P (MAP) Pulse Ox O2 Delivery O2 Flow Rate FiO2 04/07/21 10:24 63 158/85 04/07/21 08:00 97.8 16 97 Room Air Laboratory Data Labs 24H Laboratory Tests 2 04/06/21 14:20: Immature Granulocyte % (Auto) 0.3, Neutrophils (%) (Auto) 68.7H, Lymphocytes (%) (Auto) 18.0L, Monocytes (%) (Auto) 9.0H, Eosinophils (%) (Auto) 3.4H, Basophils (%) (Auto) 0.6, Neutrophils # (Auto) 6.0, Lymphocytes # (Auto) 1.6, Monocytes # (Auto) 0.8, Eosinophils # (Auto) 0.3, Basophils # (Auto) 0.1, Nucleated Red Blood Cells % (auto) 0.0, Anion Gap 7L, Glomerular Filtration Rate > 60.0, Calcium Level 8.1L, Total Bilirubin 0.9, Direct Bilirubin 0.2, Aspartate Amino Transf (AST/SGOT) 18, Alanine Aminotransferase (ALT/SGPT) 22, Alkaline Phosphatase 128H, Total Creatine Kinase 82, Creatine Kinase MB 1.9, Creatine Kinase MB Relative Index 2.32, Troponin I < 0.02, Total Protein 5.9L, Albumin 3.4, Albumin/Globulin Ratio 1.4, Lipase 82, Thyroid Stimulating Hormone (TSH) 6.270H, Free Thyroxine 1.43 04/06/21 19:00: Total Creatine Kinase 76, Creatine Kinase MB 1.2, Creatine Kinase MB Relative Index 1.58, Troponin I 0.02 04/06/21 20:51: Coronavirus (COVID-19)(PCR) NEGATIVE, Influenza Type A (RT-PCR) NEGATIVE, Influenza Type B (RT-PCR) NEGATIVE, Respiratory Syncytial Virus (PCR) NEGATIVE 04/06/21 22:03: Troponin I 0.02 04/07/21 00:55: Troponin I < 0.02 04/07/21 05:38: Nucleated Red Blood Cells % (auto) 0.0, Anion Gap 4L, Glomerular Filtration Rate > 60.0, Calcium Level 7.8L, Magnesium Level 1.8 CBC/BMP Laboratory Tests 04/06/21 14:20 04/07/21 05:38 Discharge Medications Scheduled Amlodipine Besylate (Amlodipine Besylate) 10 Mg Tablet, 10 MG PO DAILY Atorvastatin Calcium (Atorvastatin Calcium) 80 Mg Tab, 80 MG PO DAILY, (Reported) TAKES AT LUNCHTIME Cholecalciferol (Vitamin D3) (Vitamin D3) 1,000 Unit Tablet, 1,000 UNITS PO QPM, (Reported) TAKES AT DINNERTIME Dorzolamide HCl/Timolol Maleat (Dorzolamide-Timolol Eye Drops) 10 Ml Drops, 1 DROP OD BID, (Reported) Ferrous Sulfate (Ferrous Sulfate) 325 Mg Tablet, 325 MG PO BID, (Reported) Latanoprost/Pf (Latanoprost 0.005% Eye Drop) 7.5 Ml Drops, 1 DROP OD QHS, (Reported) Levothyroxine Sodium (Levothyroxine Sodium) 150 Mcg Tablet, 150 MCG PO DAILY, (Reported) Lisinopril (Lisinopril) 20 Mg Tablet, 20 MG PO DAILY Multivitamins (Thera M Plus Tablet) 1 Each Tablet, 1 TAB PO DAILY, (Reported) TAKES AT DINNERTIME [place]-3 Fatty Acids/Fish Oil (Fish Oil 1,000 mg Capsule) 1 Each Capsule, 1,000 MG PO QPM, (Reported) TAKES AT DINNERTIME Scheduled PRN Albuterol Sulfate (Albuterol Sulfate Hfa) 8.5 Gm Hfa.aer.ad, 2 PUFFS INH QID PRN for SHORTNESS OF BREATH, (Reported) Gabapentin (Gabapentin) 300 Mg Capsule, 600 MG PO BID PRN for PAIN, (Reported) Allergies Coded Allergies: No Known Allergies (Verified , 01/22/07) GME ATTESTATION GME ATTESTATION My faculty preceptor for this patient encounter was physically present during the encounter and was fully available. All aspects of the patient interview, examination, medical decision making process, and medical care plan development were reviewed and approved by the faculty preceptor. The faculty preceptor is aware and concurs with the plan as stated in the body of this note and will attest to such by his/her cosignature. ATTENDING NOTE I, Chrissie Vega, have independently examined this patient and performed my own physical exam, as well as reviewed the documentation and edited where necessary. I have discussed in detail with the resident / student the findings and plan of treatment as documented by the resident / student and edited their note. I agree with their findings and treatment plan and have edited their documentation. I will continue to follow the patient during this hospital stay. Time spent on discharge 20 minutes Bar Johnson DO Apr 07, 2021 10:43 CHRISSIE VEGA MD Apr 07, 2021 11:01
== END 2021-04-07 13:13 | disposition home or self-care (01) ==
LOC: M ED 12:50 → EEVIPCON 12:51 → M ED INP 12:51 → ENRESERV 22:59 → M PCU 23:50
PROVIDERS: ADMIT Internal Medicine; ATTEND Internal Medicine
DX: I16.0 Hypertensive urgency (principal); I44.0 Atrioventricular block, first degree; J44.9 Chronic obstructive pulmonary disease, unspecified; R07.89 Other chest pain; G47.33 Obstructive sleep apnea (adult) (pediatric); N40.1 Benign prostatic hyperplasia with lower urinary tract symptoms; R32 Unspecified urinary incontinence; Z85.46 Personal history of malignant neoplasm of prostate; Z85.850 Personal history of malignant neoplasm of thyroid; R94.6 Abnormal results of thyroid function studies; E89.0 Postprocedural hypothyroidism; E55.9 Vitamin D deficiency, unspecified; E78.5 Hyperlipidemia, unspecified; D50.9 Iron deficiency anemia, unspecified; H40.10X0 Unspecified open-angle glaucoma, stage unspecified; G47.00 Insomnia, unspecified; E66.9 Obesity, unspecified; Z92.3 Personal history of irradiation; Z79.899 Other long term (current) drug therapy; Z87.891 Personal history of nicotine dependence
CPT/HCPCS: 36415; 71046; 80048; 80076; 82550; 82553; 83690; 83735; 84439; 84443; 84484; 85025; 85027; 87631; 93005; 93041; 94760; 96374; 99285; G0378

== ENCOUNTER 2021-04-12 12:46 | Emergency (ER) | payer BC, MEDICARE ==
[~2021-04-12] VITALS: Ht 170.2 cm; Wt 90.9 kg
[~2021-04-12 12:46] MED LIST changes: +ALBU8.5H INH; +AMLO1TAB25 PO; +D31000TA2 PO; +FERR1TAB8 PO; +FISH1000 PO; +VITMTA PO
[2021-04-12 13:26] LABS: BASO % 0.4 % (0.0-1.0); EOS # 0.4 10^3/uL (0.0-0.5); EOS % 5.1 % (0.0-3.0); HEMATOCRIT 39.9 % (42.0-52.0); HEMOGLOBIN 12.5 g/dl (13.5-17.5); LYMPH # 1.5 10^3/uL (1.5-5.0); LYMPH % 19.9 % (24.0-44.0); MEAN CORPUSCULAR HGB CONC 31.3 g/dl (32.0-36.5); MEAN CORPUSCULAR VOLUME 92.6 fl (80.0-96.0); MONO # 0.8 10^3/uL (0.0-0.8); MONO % 10.8 % (2.0-8.0); NEUTROPHILS # 4.8 10^3/uL (1.5-8.5); NEUTROPHILS % 63.5 % (36.0-66.0); PLATELET COUNT, AUTOMATED 228 10^3/uL (150-450); RED BLOOD COUNT 4.31 10^6/uL (4.30-6.10); WHITE BLOOD COUNT 7.6 10^3/uL (4.0-10.0)
[2021-04-12 13:55] LABS: ALBUMIN 3.3 GM/DL (3.2-5.2); ALT/SGPT 21 U/L (12-78); BILIRUBIN,DIRECT 0.2 MG/DL (0.0-0.2); BILIRUBIN,TOTAL 0.9 MG/DL (0.2-1.0); BLOOD UREA NITROGEN 31 MG/DL (7-18); CALCIUM LEVEL 7.7 MG/DL (8.8-10.2); CARBON DIOXIDE LEVEL 30 MEQ/L (21-32); CHLORIDE LEVEL 110 MEQ/L (98-107); CK-MB VALUE MASS 4.3 NG/ML (<3.6); CPK CREATINE PHOSPHOKINASE 136 U/L (39-308); CREATININE FOR GFR 1.02 MG/DL (0.70-1.30); GLOMERULAR FILTRATION RATE > 60.0 (>35); GLUCOSE, FASTING 103 MG/DL (70-100); LIPASE 121 U/L (73-393); MB/CK RELATIVE INDEX 3.16 (< OR =4); SODIUM LEVEL 144 MEQ/L (136-145); TROPONIN I < 0.02 NG/ML (< 0.10)
--- NOTE | 2021-04-12 14:31 | REP ---
INDICATION: CHEST PAIN. COMPARISON: 04/06/2021. TECHNIQUE: Single portable AP view of the chest was performed. FINDINGS: No acute infiltrate is seen. There are again mild bibasilar fibro atelectatic changes which are stable. The heart is not enlarged. There is mild calcification of the thoracic aorta. The mediastinal silhouette is unchanged. IMPRESSION: No acute pulmonary disease.Stable chronic findings. <Electronically signed by Brad Smiley > 04/12/21 [id number]
--- NOTE | 2021-04-12 15:46 | ECGEPIP ---
[facility] [place] - ED Test Date: 2021-04-12 Pat Name: MARIO BLOOM Department: Room: - Gender: Male Rn Procedure: RS : 1935 Requested By: Leeanna Bennett Order Number: [id number] Reading MD: Paulo Arthur Measurements Intervals [place] Rate: 67 P: 54 [place]: 268 QRS: 37 QRSD: 94 T: 34 QT: 428 QTc: 452 Interpretive Statements Sinus rhythm with 1st degree AV block Similar to tracing done 04-06-21 Electronically Signed on 04-12-2021 15:46:08 EDT by Paulo Arthur
--- NOTE | 2021-04-12 15:55 | ECGEPIP ---
[facility] - ED Test Date: 2021-04-12 Pat Name: MARIO BLOOM Department: Room: - Gender: Male Director Banking: HC : 1935 Requested By: PAULO HERRERA Order Number: [id number] Reading MD: Paulo Arthur Measurements Intervals [place] Rate: 57 P: 41 MT: 290 QRS: 18 QRSD: 90 T: 17 QT: 456 QTc: 443 Interpretive Statements Sinus bradycardia with 1st degree AV block Similar to tracing done 12:55 on same date but with lower rate Electronically Signed on 04-12-2021 15:54:45 EDT by Paulo Arthur
[2021-04-12 16:33] LABS: CK-MB VALUE MASS 3.8 NG/ML (<3.6); CPK CREATINE PHOSPHOKINASE 122 U/L (39-308); MB/CK RELATIVE INDEX 3.11 (< OR =4); TROPONIN I < 0.02 NG/ML (< 0.10)
[2021-04-12 17:30] VITALS: BP 145/82
== END 2021-04-12 17:43 | disposition home or self-care (01) ==
LOC: M ED 12:46
DX: R07.89 Other chest pain (principal); I44.0 Atrioventricular block, first degree; I10 Essential (primary) hypertension; J44.9 Chronic obstructive pulmonary disease, unspecified; E03.9 Hypothyroidism, unspecified; Z85.850 Personal history of malignant neoplasm of thyroid

== ENCOUNTER → 2021-05-05 | Outpatient (REF) | payer MEDICARE, BC ==
[2021-05-05 13:49] LABS: APPEARANCE, URINE CLEAR (CLEAR); BACTERIA, URINE AUTO NEGATIVE (NEGATIVE); BILIRUBIN, URINE AUTO NEGATIVE (NEGATIVE); BLOOD, URINE BLOOD NEGATIVE (NEGATIVE); COLOR, URINE YELLOW (YELLOW); GLUCOSE, URINE (UA) AUTO NEGATIVE (NEGATIVE); KETONE, URINE AUTO NEGATIVE (NEGATIVE); LEUKOCYTE ESTERASE, URINE AUTO NEGATIVE (NEGATIVE); NITRITE, URINE AUTO NEGATIVE (NEGATIVE); PROTEIN, URINE AUTO NEGATIVE (NEGATIVE); RBC, URINE AUTO 0 /HPF (0-3); SPECIFIC GRAVITY URINE AUTO 1.019 (1.002-1.035); SQUAMOUS EPITHELIAL CELL UR AU 0 /HPF (0-6); WBC, URINE AUTO 0 /HPF (0-3)
== END ==
LOC: M SMT 13:14
PROVIDERS: ATTEND Urology
DX: N39.41 Urge incontinence (principal); N52.35 Erectile dysfunction following radiation therapy; K62.1 Rectal polyp; Z85.46 Personal history of malignant neoplasm of prostate
CPT/HCPCS: 81001; G0463

== ENCOUNTER → 2021-05-17 | Outpatient (REF) | payer MEDICARE, BC ==
[2021-05-17 16:50] LABS: ALBUMIN 3.3 GM/DL (3.2-5.2); BLOOD UREA NITROGEN 19 MG/DL (7-18); CALCIUM LEVEL 7.7 MG/DL (8.8-10.2); CARBON DIOXIDE LEVEL 30 MEQ/L (21-32); CHLORIDE LEVEL 108 MEQ/L (98-107); CREATININE FOR GFR 1.01 MG/DL (0.70-1.30); GLOMERULAR FILTRATION RATE > 60.0 (>35); GLUCOSE, FASTING 120 MG/DL (70-100); PHOSPHORUS LEVEL 4.2 MG/DL (2.5-4.9); POTASSIUM SERUM 3.8 MEQ/L (3.5-5.1); SODIUM LEVEL 143 MEQ/L (136-145)
== END ==
LOC: M WUC 15:11
PROVIDERS: ATTEND Family Medicine
DX: I10 Essential (primary) hypertension (principal); E89.0 Postprocedural hypothyroidism

== ENCOUNTER 2021-05-31 09:58 | Observation (INO) | payer MEDICARE, BC ==
[~2021-05-31] VITALS: Ht 170.2 cm; Wt 85.9 kg
[2021-05-31 10:38] LABS: BASO % 0.4 % (0.0-1.0); EOS # 0.2 10^3/uL (0.0-0.5); EOS % 3.2 % (0.0-3.0); HEMATOCRIT 39.4 % (42.0-52.0); HEMOGLOBIN 12.6 g/dl (13.5-17.5); LYMPH # 1.2 10^3/uL (1.5-5.0); LYMPH % 16.8 % (24.0-44.0); MEAN CORPUSCULAR HEMOGLOBIN 29.6 pg (27.0-33.0); MEAN CORPUSCULAR VOLUME 92.5 fl (80.0-96.0); MONO # 0.5 10^3/uL (0.0-0.8); MONO % 6.8 % (2.0-8.0); NEUTROPHILS # 5.2 10^3/uL (1.5-8.5); NEUTROPHILS % 72.4 % (36.0-66.0); PLATELET COUNT, AUTOMATED 190 10^3/uL (150-450); RED BLOOD COUNT 4.26 10^6/uL (4.30-6.10); WHITE BLOOD COUNT 7.2 10^3/uL (4.0-10.0)
[2021-05-31 11:06] LABS: BLOOD UREA NITROGEN 21 MG/DL (7-18); GLUCOSE, FASTING 128 MG/DL (70-100)
[2021-05-31 11:07] LABS: ALBUMIN 3.2 GM/DL (3.2-5.2); ALT/SGPT 20 U/L (12-78); BILIRUBIN,TOTAL 1.1 MG/DL (0.2-1.0); CALCIUM LEVEL 7.8 MG/DL (8.8-10.2); CARBON DIOXIDE LEVEL 30 MEQ/L (21-32); CHLORIDE LEVEL 109 MEQ/L (98-107); CREATININE FOR GFR 0.96 MG/DL (0.70-1.30); GLOMERULAR FILTRATION RATE > 60.0 (>35); POTASSIUM SERUM 3.9 MEQ/L (3.5-5.1); SODIUM LEVEL 143 MEQ/L (136-145); TOTAL PROTEIN 5.9 GM/DL (6.4-8.2)
[2021-05-31] MEDS ORDERED: MECLIZINE 25 MG TABLET PO ONE ×2 (11:35→13:20)
[2021-05-31 11:48] LABS: CK-MB VALUE MASS 1.3 NG/ML (<3.6); CPK CREATINE PHOSPHOKINASE 61 U/L (39-308); FREE T4 1.28 NG/DL (0.76-1.46); MB/CK RELATIVE INDEX 2.13 (< OR =4); TROPONIN I < 0.02 NG/ML (< 0.10)
--- NOTE | 2021-05-31 11:57 | REP ---
INDICATION: dizziness. COMPARISON: Comparison CT study May 01, 2018.. TECHNIQUE: Helical scanning is acquired. 5 mm axial images were reformatted. Coronal MPR images were generated. FINDINGS: Digital preliminary hand glass cutter radiographs unremarkable. The patient is edentulous. There is fairly heavy vascular calcification in the distal internal carotid arteries bilaterally. Dystrophic calcific changes are seen in the left ocular globe unchanged from the comparison study. No other intraorbital abnormality is appreciated. There is generalized volume loss visible on cyst soft tissue window settings. Mild small vessel changes are seen in the periventricular white matter of the frontal lobes. There is physiologic calcification in the basal ganglia bilaterally. These findings are unchanged. There is no evidence of acute infarction, intracranial hemorrhage, extra-axial fluid collection, mass or midline shift. IMPRESSION: Mild generalized volume loss and vascular calcification. No acute intracranial abnormality.. <Electronically signed by Mervin Perdomo > 05/31/21 115
--- NOTE | 2021-05-31 12:13 | REP ---
INDICATION: dizziness. COMPARISON: PA and lateral chest dated 10/03/2020, portable chest dated 10/04/2020, PA and lateral chest of 04/06/2021 and portable chest of 04/12/2021 TECHNIQUE: Portable AP chest with the patient sitting. FINDINGS: The lung guaman are clear and unchanged. Cardiac size is normal. The emilia, mediastinum and skeletal structures are unremarkable. There is no interval change IMPRESSION: Essentially negative portable chest <Electronically signed by Brad Sutton > 05/31/21 [id number]
[2021-05-31] MEDS ORDERED: MECL-86 PO ×2 (19:07→19:09)
--- NOTE | 2021-05-31 19:20 | ECGEPIP ---
[facility] - ED Test Date: 2021-05-31 Pat Name: MARIO BLOOM Department: Room: - Gender: Male Wedger Machine: VC : 1935 Requested By: BLAS Felix Order Number: [id number] Reading MD: Yoon Robles Measurements Intervals [place] Rate: 52 P: 47 LA: 600 QRS: 49 QRSD: 94 T: 55 QT: 458 QTc: 425 Interpretive Statements Sinus bradycardia with 1st degree AV block Electronically Signed on 05-31-2021 19:20:12 EDT by Yoon Robles
--- NOTE | 2021-05-31 22:23 | REPVR ---
PROCEDURE INFORMATION: Exam: MR Head Without Contrast Exam date and time: 05/31/2021 8:58 PM Age: 85 years old Clinical indication: Dizziness TECHNIQUE: Imaging protocol: MR of the head without contrast. COMPARISON: 1. CT Head without contrast 2021-05-31 11:[address] Head without contrast 2018-05-01 12:24 FINDINGS: Brain: Mild scattered FLAIR hyperintense foci within the supratentorial deep and subcortical white matter suggesting mild chronic small vessel ischemic disease. No gradient susceptibility blooming within the brain parenchyma to suggest hemorrhage. No midline shift, mass, or fluid collection is present. Diffuse cerebral age related volume loss. The brainstem, posterior fossa and cervical medullary junction are preserved. Tiny punctate questionable focus of diffusion restriction adjacent to the left lateral ventricle atrium, question tiny recent lacunar infarct. Cerebral ventricles: Ventricular enlargement proportional to volume loss. Bones/joints: Unremarkable. Paranasal sinuses: Normal as visualized. No acute sinusitis. Mastoid air cells: Normal as visualized. No mastoid effusion. Orbital cavity: Left globe phthisis bulbi. Soft tissues: Unremarkable. IMPRESSION: Tiny punctate questionable focus of diffusion restriction adjacent to the left lateral ventricle atrium, question tiny recent lacunar infarct. Electronically signed by: Paulo Baires On 05/31/2021 22:22:59 PM
--- NOTE | 2021-05-31 22:27 | REPVR ---
PROCEDURE INFORMATION: Exam: MRA Head Without Contrast; Arteriography Exam date and time: 05/31/2021 8:58 PM Age: 85 years old Clinical indication: Dizziness and giddiness TECHNIQUE: Imaging protocol: Magnetic resonance angiography head without contrast. Exam focused on the arteries. COMPARISON: 1. CT Head without contrast 2021-05-31 11:[address] Head without contrast 2018-05-01 12:24 FINDINGS: ANTERIOR CIRCULATION: Right internal carotid artery: Intracranial segment is patent with no significant stenosis. No aneurysm. Right middle cerebral artery: No occlusion or significant stenosis. No aneurysm. Right anterior cerebral artery: No occlusion or significant stenosis. No aneurysm. Left internal carotid artery: Intracranial segment is patent with no significant stenosis. No aneurysm. Left middle cerebral artery: No occlusion or significant stenosis. No aneurysm. Left anterior cerebral artery: No occlusion or significant stenosis. No aneurysm. POSTERIOR CIRCULATION: Right vertebral artery: No occlusion or significant stenosis. No aneurysm. Left vertebral artery: No occlusion or significant stenosis. No aneurysm. Basilar artery: No occlusion or significant stenosis. No aneurysm. Right posterior cerebral artery: Large right posterior communicating artery supplying the majority right SOLE ROUNDER which appears widely patent. Left posterior cerebral artery: Small left posterior communicating artery. IMPRESSION: No stenosis or occlusion. Electronically signed by: Paulo Baires On 05/31/2021 22:27:15 PM
[2021-05-31] MEDS ORDERED: ASPIRIN 325 MG TAB PO ONE (23:20)
[2021-05-31] MEDS ORDERED: ACETAMINOPHEN TAB 650MG DOSE (2X325MG) PO PRN (23:20)
[2021-05-31] MEDS ORDERED: MOM 30ML SUSPENSION UDC PO PRN (23:20)
[2021-05-31] MEDS ORDERED: MAALOX 30 ML SUSP *UDC PO PRN (23:20)
--- NOTE | 2021-05-31 23:27 | HPEPDOC ---
[facility] Medical History & Physical Date of Admission May 31, 2021 Date of Service: May 31, 2021 Attending Physician: JOYCE SIMPSON MD History and Physical CHIEF COMPLAINT: [85 y/o male c/o dizzy spells that began this am] HISTORY OF PRESENT ILLNESS: [This is an 85 y/o male with a pmh of copd, htn, hld, christy on cpap, thyroid ca s/p thyroidectomy, prostate ca s/p prostatectomy who presents to the ED on 05/31 with a cc of severe dizziness that began shortly after waking up. Patient states that the dizziness was severe to the point where he could not get up and walk because he simply had no balance. Patient states that he did not want to report to the ED but eventually decided to call EMS when he was not able to walk. Patient states that he did not fall or pass out. Patient states that he was told by EMS provider that his heart rate was slow, but i can find no documentation of this. Patient, as of the time of my exam, states that his dizziness has mostly resolved after two doses of meclizine. Patient is currently denying headaches, blurry vision, weakness, paresthesias, paralysis, aphasia, chest pain, sob, abd pain, n/v/d/c. MRI brain performed in the ED showing questionable tiny acute lacunar infarct.] PAST MEDICAL HISTORY: 1. [See HPI PAST SURGICAL HISTORY: 1. [Appendectomy]. 2. [Colonoscopy with polypectomy]. 3. [TURP 4. Prostatectomy 5. B/L TKA 6. Total thyroidectomy]. SOCIAL HISTORY: Tobacco use:[Former smoker - approx 20 years] ETOH: [Denies] Illicit drug use: [Denies] FAMILY HISTORY: Reviewed - none pertinent ALLERGIES: Please see below. REVIEW OF SYSTEMS: CONSTITUTIONAL: [Denies fevers, chills]. HEENT: [Denies uri sx]. CARDIOVASCULAR: [Denies chest pain, palpitations]. RESPIRATORY: [Denies sob, wheezing]. GASTROINTESTINAL: [Denies abd pain, n/v/d/c]. GENITOURINARY: [Denies dysuria]. SKIN: [Denies rash]. MUSCULOSKELETAL: [Denies acute joint/back pain]. NEUROLOGICAL: [See HPI]. ENDOCRINE: [Denies hx of DM]. HEMATOLOGIC/LYMPHATIC: [Denies easy bruising]. HOME MEDICATIONS: Please see below. PHYSICAL EXAMINATION: VITAL SIGNS: Please see below. GENERAL APPEARANCE: [This is an 85 y/o male who is alert an oriented to all questioning. He does not appear to be in any acute distress.]. HEENT: [[place]. No mass or lesion. EOMI. No scleral icterus. Nares patent. Oral mucosa moist.]. CARDIOVASCULAR: [Regular rate, rhythm. No murmurs, rubs, gallops]. LUNGS: [Decreased breath sounds b/l. No wheezing, rales, rhonchi.]. ABDOMEN: [Soft, nontender]. MUSCULOSKELETAL: [No joint deformity noted]. EXTREMITIES: [No pedal edema appreciated. No overlying skin changes. Pulses intact.]. NEUROLOGICAL: [Speech clear. A+Ox3. No focal deficits.]. PSYCHIATRIC: [Mood and affect appear appropriate.]. LABORATORY DATA: See below. IMAGING: [CXR: FINDINGS: The lung guaman are clear and unchanged. Cardiac size is normal. The emilia, mediastinum and skeletal structures are unremarkable. There is no interval change IMPRESSION: Essentially negative portable chest Head CT: FINDINGS: Digital preliminary transition mgr radiographs unremarkable. The patient is edentulous. There is fairly heavy vascular calcification in the distal internal carotid arteries bilaterally. Dystrophic calcific changes are seen in the left ocular globe unchanged from the comparison study. No other intraorbital abnormality is appreciated. There is generalized volume loss visible on cyst soft tissue window settings. Mild small vessel changes are seen in the periventricular white matter of the frontal lobes. There is physiologic calcification in the basal ganglia bilaterally. These findings are unchanged. There is no evidence of acute infarction, intracranial hemorrhage, extra-axial fluid collection, mass or midline shift. IMPRESSION: Mild generalized volume loss and vascular calcification. No acute intracranial abnormality.. Brain MRI: FINDINGS: Brain: Mild scattered FLAIR hyperintense foci within the supratentorial deep and subcortical white matter suggesting mild chronic small vessel ischemic disease. No gradient susceptibility blooming within the brain parenchyma to suggest hemorrhage. No midline shift, mass, or fluid collection is present. Diffuse cerebral age related volume loss. The brainstem, posterior fossa and cervical medullary junction are preserved. Tiny punctate questionable focus of diffusion restriction adjacent to the left lateral ventricle atrium, question tiny recent lacunar infarct. Cerebral ventricles: Ventricular enlargement proportional to volume loss. Bones/joints: Unremarkable. Paranasal sinuses: Normal as visualized. No acute sinusitis. Mastoid air cells: Normal as visualized. No mastoid effusion. Orbital cavity: Left globe phthisis bulbi. Soft tissues: Unremarkable. IMPRESSION: Tiny punctate questionable focus of diffusion restriction adjacent to the left lateral ventricle atrium, question tiny recent lacunar infarct. Brain MRA: ANTERIOR CIRCULATION: Right internal carotid artery: Intracranial segment is patent with no significant stenosis. No aneurysm. Right middle cerebral artery: No occlusion or significant stenosis. No aneurysm. Right anterior cerebral artery: No occlusion or significant stenosis. No aneurysm. Left internal carotid artery: Intracranial segment is patent with no significant stenosis. No aneurysm. Left middle cerebral artery: No occlusion or significant stenosis. No aneurysm. Left anterior cerebral artery: No occlusion or significant stenosis. No aneurysm. POSTERIOR CIRCULATION: Right vertebral artery: No occlusion or significant stenosis. No aneurysm. Left vertebral artery: No occlusion or significant stenosis. No aneurysm. Basilar artery: No occlusion or significant stenosis. No aneurysm. Right posterior cerebral artery: Large right posterior communicating artery supplying the majority right AUTO HAULER which appears widely patent. Left posterior cerebral artery: Small left posterior communicating artery. IMPRESSION: No stenosis or occlusion. ] MICROBIOLOGY: Please see below. ASSESSMENT: [This is an 85 y/o male with a pmh of copd, htn, hld, christy on cpap, thyroid ca s/p thyroidectomy, prostate ca s/p prostatectomy who presents to the ED on 05/31 with a cc of severe dizziness that began shortly after waking up. MRI brain performed in the ED showing "tiny" acute lacunar infarct.]. . PLAN: 1. [CVA? - MRI brain performed in the ED showing questionable tiny acute lacunar infarct - Patient outside window for TPA - Will begin asa - 325mg loading dose followed by 81mg daily - Patient already on high dose statin therapy - will continue - Discussed case with Dr. Staley, neurology, who feels patients symptoms and findings align moreso with BPPV. Recommends baby asa and vestibular rehab. - permissive htn - goal sbp for now is 140s-160s - Will monitor on tele overnight - neuro checks q4h - PT/OT - admit to med surg under obs 2. 1st Degree AV Block - patient has impressive 1st degree av block on ekg and telemetry - patient is totally asymptomatic - will monitor - rate has been lows 50s- low 70s 3. HTN - holding lisinopril, amlodipine for permissive htn 4. COPD - not in acute exacerbation - continue at home inhalers DVT prophylaxis - mechanical]. Vital Signs Vital Signs Date Time Temp Pulse Resp B/P (MAP) Pulse Ox O2 Delivery O2 Flow Rate FiO2 05/31/21 21:11 186/86 (119) 05/31/21 19:46 65 05/31/21 18:46 18 97 Room Air 05/31/21 18:00 98.6 Laboratory Data Labs 24H Laboratory Tests 2 05/31/21 10:24: Immature Granulocyte % (Auto) 0.4, Neutrophils (%) (Auto) 72.4H, Lymphocytes (%) (Auto) 16.8L, Monocytes (%) (Auto) 6.8, Eosinophils (%) (Auto) 3.2H, Basophils (%) (Auto) 0.4, Neutrophils # (Auto) 5.2, Lymphocytes # (Auto) 1.2L, Monocytes # (Auto) 0.5, Eosinophils # (Auto) 0.2, Basophils # (Auto) 0.0, Nucleated Red Blood Cells % (auto) 0.0, Anion Gap 4L, Glomerular Filtration Rate > 60.0, Calcium Level 7.8L, Total Bilirubin 1.1H, Aspartate Amino Transf (AST/SGOT) 18, Alanine Aminotransferase (ALT/SGPT) 20, Alkaline Phosphatase 128H, Total Protein 5.9L, Albumin 3.2, Albumin/Globulin Ratio 1.2 05/31/21 11:04: Total Creatine Kinase 61, Creatine Kinase MB 1.3, Creatine Kinase MB Relative In dex 2.13, Troponin I < 0.02, Thyroid Stimulating Hormone (TSH) 4.850H, Free Thyroxine 1.28 CBC/BMP Laboratory Tests 05/31/21 10:24 Home Medications Scheduled Amlodipine Besylate (Amlodipine Besylate) 10 Mg Tablet, 10 MG PO DAILY Atorvastatin Calcium (Atorvastatin Calcium) 80 Mg Tab, 80 MG PO DAILY TAKES AT LUNCHTIME Cholecalciferol (Vitamin D3) (Vitamin D3) 1,000 Unit Tablet, 1,000 UNITS PO QPM TAKES AT DINNERTIME Dorzolamide HCl/Timolol Maleat (Dorzolamide-Timolol Eye Drops) 10 Ml Drops, 1 DROP OD BID Ferrous Sulfate (Ferrous Sulfate) 325 Mg Tablet, 325 MG PO BID Latanoprost/Pf (Latanoprost 0.005% Eye Drop) 7.5 Ml Drops, 1 DROP OD QHS Lisinopril (Lisinopril) 20 Mg Tablet, 20 MG PO DAILY Multivitamins (Thera M Plus Tablet) 1 Each Tablet, 1 TAB PO DAILY TAKES AT DINNERTIME [place]-3 Fatty Acids/Fish Oil (Fish Oil 1,000 mg Capsule) 1 Each Capsule, 1,000 MG PO QPM TAKES AT DINNERTIME Scheduled PRN Albuterol Sulfate (Albuterol Sulfate Hfa) 8.5 Gm Hfa.aer.ad, 2 PUFFS INH QID PRN for SHORTNESS OF BREATH Gabapentin (Gabapentin) 300 Mg Capsule, 600 MG PO BID PRN for PAIN Allergies Coded Allergies: No Known Allergies (Verified , 01/22/07) A-FIB/CHADSVASC A-FIB History Current/History of A-Fib/PAF?: No VALENCIA VASQUEZ May 31, 2021 23:27
[2021-05-31 23:56] LABS: CHOLESTEROL LEVEL 134 MG/DL (<200); CHOLESTEROL RISK RATIO 4.322 (<5); HDL CHOLESTEROL 31 MG/DL (>40); LDL CHOLESTEROL 81 MG/DL (<100); NON-HDL-C 103 MG/DL; TRIGLYCERIDES LEVEL 112 MG/DL (<150)
[2021-06-01] MEDS: DOCUSATE SODIUM 100MG CAPSULE PO SCH ×2 (00:15→09:01)
[2021-06-01 00:36] LABS: RSV AMPLIFICATION NEGATIVE (NEGATIVE)
[2021-06-01] MEDS ORDERED: LISI20TA33 PO (01:46)
[2021-06-01] MEDS ORDERED: AMLO1TAB25 PO (01:46)
[2021-06-01 06:45] LABS: HEMATOCRIT 40.4 % (42.0-52.0); HEMOGLOBIN 13.1 g/dl (13.5-17.5); MEAN CORPUSCULAR HEMOGLOBIN 29.4 pg (27.0-33.0); MEAN CORPUSCULAR HGB CONC 32.4 g/dl (32.0-36.5); MEAN CORPUSCULAR VOLUME 90.8 fl (80.0-96.0); PLATELET COUNT, AUTOMATED 194 10^3/uL (150-450); RED BLOOD COUNT 4.45 10^6/uL (4.30-6.10); WHITE BLOOD COUNT 7.9 10^3/uL (4.0-10.0)
[2021-06-01 07:07] LABS: BLOOD UREA NITROGEN 20 MG/DL (7-18); CALCIUM LEVEL 7.5 MG/DL (8.8-10.2); CARBON DIOXIDE LEVEL 30 MEQ/L (21-32); CHLORIDE LEVEL 111 MEQ/L (98-107); CREATININE FOR GFR 1.01 MG/DL (0.70-1.30); GLOMERULAR FILTRATION RATE > 60.0 (>35); GLUCOSE, FASTING 102 MG/DL (70-100); POTASSIUM SERUM 3.9 MEQ/L (3.5-5.1); SODIUM LEVEL 144 MEQ/L (136-145)
[2021-06-01] MEDS ORDERED: LEVO125T4 PO (08:22)
[2021-06-01] MEDS ORDERED: PARO20TA3 PO (08:22)
[2021-06-01] MEDS ORDERED: CALC1CAP31 PO (08:22)
[2021-06-01] MEDS ORDERED: B-122500 PO (08:22)
[2021-06-01] MEDS ORDERED: POTA595T8 PO (08:22)
[2021-06-01] MEDS ORDERED: HOME MED LIST COMPLETE! XX SCH (08:25)
[2021-06-01] MEDS ORDERED: ATORVASTATIN 20 MG TAB PO SCH (09:00)
[2021-06-01] MEDS ORDERED: ASPIRIN 81MG ENTERIC TABLET PO SCH (09:00)
[2021-06-01] MEDS ORDERED: ASPI-551 PO (11:40)
[2021-06-01 13:30] VITALS: BP 162/74
[2021-06-01] MEDS ORDERED: HEPARIN SOD (PORCINE) 5000UNITS/ML 1ML VIAL/SYRINGE SQ SCH (14:00)
--- NOTE | 2021-06-01 14:17 | IPNPDOC ---
Text Note Date of Service The patient was seen on 06/01/21. NOTE SUBJECTIVE: Feels good, no complaints, asking to be discharged home. OBJECTIVE: VITAL SIGNS: Please see below. GENERAL APPEARANCE: NAD, Aox3 HEENT: NCAT, EOMI, anicteric, MMM CARDIOVASCULAR: Regular rate, rhythm. No murmurs, rubs, gallops LUNGS: Diminished breath sounds b/l. No wheezing, rales, rhonchi ABDOMEN: Normoactive bowel sounds, soft, NTND EXTREMITIES:No pedal edema appreciated. No overlying skin changes. Pulses intact. NEUROLOGICAL: Speech clear. A+Ox3. 5/5 strength with full tone in all extremities. PSYCHIATRIC: Aox3 LABORATORY DATA: Reviewed IMAGING: CXR: The lung gumaan are clear and unchanged. Cardiac size is normal. The emilia, mediastinum and skeletal structures are unremarkable. There is no interval change Head CT: Digital preliminary dials supervisor radiographs unremarkable. The patient is edentulous. There is fairly heavy vascular calcification in the distal internal carotid arteries bilaterally. Dystrophic calcific changes are seen in the left ocular globe unchanged from the comparison study. No other intraorbital abnormality is appreciated. There is generalized volume loss visible on cyst soft tissue window settings. Mild small vessel changes are seen in the periventricular white matter of the frontal lobes. There is physiologic calcification in the basal ganglia bilaterally. These findings are unchanged. There is no evidence of acute infarction, intracranial hemorrhage, extra-axial fluid collection, mass or midline shift. IMPRESSION: Mild generalized volume loss and vascular calcification. No acute intracranial abnormality. Brain MRI: Brain: Mild scattered FLAIR hyperintense foci within the supratentorial deep and subcortical white matter suggesting mild chronic small vessel ischemic disease. No gradient susceptibility blooming within the brain parenchyma to suggest hemorrhage. No midline shift, mass, or fluid collection is present. Diffuse cerebral age related volume loss. The brainstem, posterior fossa and cervical medullary junction are preserved. Tiny punctate questionable focus of diffusion restriction adjacent to the left lateral ventricle atrium, question tiny recent lacunar infarct. Cerebral ventricles: Ventricular enlargement proportional to volume loss. Bones/joints: Unremarkable. Paranasal sinuses: Normal as visualized. No acute sinusitis. Mastoid air cells: Normal as visualized. No mastoid effusion. Orbital cavity: Left globe phthisis bulbi. Soft tissues: Unremarkable. IMPRESSION: Tiny punctate questionable focus of diffusion restriction adjacent to the left lateral ventricle atrium, question tiny recent lacunar infarct. Brain MRA: ANTERIOR CIRCULATION: Right internal carotid artery: Intracranial segment is patent with no significant stenosis. No aneurysm. Right middle cerebral artery: No occlusion or significant stenosis. No aneurysm. Right anterior cerebral artery: No occlusion or significant stenosis. No aneurysm. Left internal carotid artery: Intracranial segment is patent with no significant stenosis. No aneurysm. Left middle cerebral artery: No occlusion or significant stenosis. No aneurysm. Left anterior cerebral artery: No occlusion or significant stenosis. No aneurysm. POSTERIOR CIRCULATION: Right vertebral artery: No occlusion or significant stenosis. No aneurysm. Left vertebral artery: No occlusion or significant stenosis. No aneurysm. Basilar artery: No occlusion or significant stenosis. No aneurysm. Right posterior cerebral artery: Large right posterior communicating artery supplying the majority right [employer]GER [employer]IC[employer] which appears widely patent. Left posterior cerebral artery: Small left posterior communicating artery. IMPRESSION: No stenosis or occlusion. MICROBIOLOGY: Please see below. ASSESSMENT: 85 y/o M with a pmh of copd, htn, hld, christy on cpap, thyroid ca s/p thyroidectomy, prostate ca s/p prostatectomy who presents to the ED on 05/31 reportedly acute severe vertigo that began shortly after waking up and MRI brain performed in the ED showing "tiny" acute left lateral ventricle atrium lacunar infarct but exam more c/w BPPV. PLAN: acute vs/ subacute lacunar CVA - MRI brain performed in the ED showing questionable tiny acute lacunar infarct - Patient outside window for TPA - s/p [id number], now on 81mg daily - Patient already on high dose statin therapy - will continue - Admitting team discussed case with Dr. Staley, neurology, who feels patients symptoms and findings align more with BPPV. Recommends [id number] and vestibular rehab. - permissive htn - goal sbp for now is 140s-160s - Tele - neuro checks q4h - PT/OT 2. 1st Degree AV Block - patient is totally asymptomatic - rate has been lows 50s- low 70s 3. HTN - holding lisinopril, amlodipine for permissive htn, to resume at discharge or tomorrow 4. COPD - not in acute exacerbation - continue at home inhalers DVT prophylaxis -ASA and heparin SC VS,Fishbone, I+O VS, Fishbone, I+O Laboratory Tests 05/31/21 10:24 06/01/21 06:33 Vital Signs Date Time Temp Pulse Resp B/P (MAP) Pulse Ox O2 Delivery O2 Flow Rate FiO2 06/01/21 08:15 97.2 66 16 143/67 (92) 99 Room Air ALEX WU MD Jun 01, 2021 09:14
--- NOTE | 2021-06-01 14:44 | DS.PDOC ---
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 HISTORY OF PRESENT ILLNESS: 85 y/o M with a pmh of copd, htn, hld, christy on cpap, thyroid ca s/p thyroidectomy, prostate ca s/p prostatectomy who presented to the ED on 05/31 with acute severe vertigo that began shortly after waking up to the point where he could not get up and walk because he simply had no balance. Patient reported that he did not want to report to the ED but eventually decided to call EMS when he was not able to walk. Patient reported that he did not fall or pass out. By the time, he was seen by the admitting team, he reported that his dizziness had mostly resolved after the ED had given two doses of meclizine. he denied headaches, blurry vision, weakness, paresthesias, paralysis, aphasia, chest pain, sob, abd pain, n/v/d/c. HOSPITAL COURSE: He was hemodynamically stable, afebrile and breathing comfortably on room air. CT head was unremarkable without evidence of bleeding, masses or rosa m infaction. MRI brain eventually showed a tiny punctate questionable focus of diffusion restriction adjacent to the left lateral ventricle atrium, question tiny recent lacunar infarct. He was started on ASA 81 after full dose aspirin and continued on lipitor 80mg QD. His vascular imaging showed no clinically significant stenosis. Neurology was consulted and was more suspicious of peripheral BPPV with the punctate lacunar infarct being incidental and he was due to have vestibular testing and rehab this morning from PT but all his symptoms resolved and he was ambulating to and from the bathroom in the ED without difficulty and asking to be discharged home. He is now being discharged home but with a referral to neurology and close PCP follow up. I would recommend the PCP to see him promptly and complete his workup with a TTE. DISCHARGE MEDICATIONS: Please see below. ALLERGIES: Please see below. PHYSICAL EXAMINATION ON DISCHARGE: VITAL SIGNS: Please see below. GENERAL APPEARANCE: NAD, Aox3 HEENT: NCAT, EOMI, anicteric, MMM CARDIOVASCULAR: Regular rate, rhythm. No murmurs, rubs, gallops LUNGS: Diminished breath sounds b/l. No wheezing, rales, rhonchi ABDOMEN: Normoactive bowel sounds, soft, NTND EXTREMITIES:No pedal edema appreciated. No overlying skin changes. Pulses intact. NEUROLOGICAL: Speech clear. A+Ox3. 5/5 strength with full tone in all extremities. PSYCHIATRIC: Aox3 LABORATORY DATA: Please see below. IMAGING: CXR: The lung guaman are clear and unchanged. Cardiac size is normal. The emilia, mediastinum and skeletal structures are unremarkable. There is no interval change Head CT: Digital preliminary montessori preschool teacher radiographs unremarkable. The patient is edentulous. There is fairly heavy vascular calcification in the distal internal carotid arteries bilaterally. Dystrophic calcific changes are seen in the left ocular globe unchanged from the comparison study. No other intraorbital abnormality is appreciated. There is generalized volume loss visible on cyst soft tissue window settings. Mild small vessel changes are seen in the periventricular white matter of the frontal lobes. There is physiologic calcification in the basal ganglia bilaterally. These findings are unchanged. There is no evidence of acute infarction, intracranial hemorrhage, extra-axial fluid collection, mass or midline shift. IMPRESSION: Mild generalized volume loss and vascular calcification. No acute intracranial abnormality. Brain MRI: Brain: Mild scattered FLAIR hyperintense foci within the supratentorial deep and subcortical white matter suggesting mild chronic small vessel ischemic disease. No gradient susceptibility blooming within the brain parenchyma to suggest hemorrhage. No midline shift, mass, or fluid collection is present. Diffuse cerebral age related volume loss. The brainstem, posterior fossa and cervical medullary junction are preserved. Tiny punctate questionable focus of diffusion restriction adjacent to the left lateral ventricle atrium, question tiny recent lacunar infarct. Cerebral ventricles: Ventricular enlargement proportional to volume loss. Bones/joints: Unremarkable. Paranasal sinuses: Normal as visualized. No acute sinusitis. Mastoid air cells: Normal as visualized. No mastoid effusion. Orbital cavity: Left globe phthisis bulbi. Soft tissues: Unremarkable. IMPRESSION: Tiny punctate questionable focus of diffusion restriction adjacent to the left lateral ventricle atrium, question tiny recent lacunar infarct. Brain MRA: ANTERIOR CIRCULATION: Right internal carotid artery: Intracranial segment is patent with no significant stenosis. No aneurysm. Right middle cerebral artery: No occlusion or significant stenosis. No aneurysm. Right anterior cerebral artery: No occlusion or significant stenosis. No aneurysm. Left internal carotid artery: Intracranial segment is patent with no significant stenosis. No aneurysm. Left middle cerebral artery: No occlusion or significant stenosis. No aneurysm. Left anterior cerebral artery: No occlusion or significant stenosis. No aneurysm. POSTERIOR CIRCULATION: Right vertebral artery: No occlusion or significant stenosis. No aneurysm. Left vertebral artery: No occlusion or significant stenosis. No aneurysm. Basilar artery: No occlusion or significant stenosis. No aneurysm. Right posterior cerebral artery: Large right posterior communicating artery supplying the majority right RIVET MACHINE OPERATOR which appears widely patent. Left posterior cerebral artery: Small left posterior communicating artery. IMPRESSION: No stenosis or occlusion. PROGNOSIS: Good ACTIVITY: As tolerated. DIET: regular DISCHARGE PLAN: Home, with close PCP follow up and neurology referral DISPOSITION: Home DISCHARGE INSTRUCTIONS: Home, with close PCP follow up and neurology referral ITEMS TO FOLLOWUP ON ON OUTPATIENT: Transient dizziness, unclear if this was vertigo, there is suspicion of peripheral vertigo, specifically BPPV Needs TTE to complete stroke workup DISCHARGE CONDITION: Stable. TIME SPENT ON DISCHARGE: 45 minutes. Vital Signs/I&Os Vital Signs Date Time Temp Pulse Resp B/P (MAP) Pulse Ox O2 Delivery O2 Flow Rate FiO2 06/01/21 13:30 57 162/74 (103) 99 06/01/21 10:15 16 Room Air 06/01/21 08:15 97.2 Laboratory Data Labs 24H Laboratory Tests 2 05/31/21 23:44: Coronavirus (COVID-19)(PCR) NEGATIVE, Influenza Type A (RT-PCR) NEGATIVE, Influenza Type B (RT-PCR) NEGATIVE, Respiratory Syncytial Virus (PCR) NEGATIVE 06/01/21 06:33: Nucleated Red Blood Cells % (auto) 0.0, Anion Gap 3L, Glomerular Filtration Rate > 60.0, Calcium Level 7.5L, Magnesium Level 2.0 CBC/BMP Laboratory Tests 06/01/21 06:33 Discharge Medications Scheduled Amlodipine Besylate (Amlodipine Besylate) 10 Mg Tablet, 10 MG PO DAILY, (Reported) Aspirin (Aspirin EC) 81 Mg Tablet.dr, 81 MG PO DAILY Atorvastatin Calcium (Atorvastatin Calcium) 80 Mg Tab, 80 MG PO DAILY, (Reported) TAKES AT LUNCHTIME Calcitriol (Calcitriol) 0.25 Mcg Capsule, 0.25 MCG PO QPM, (Reported) Cholecalciferol (Vitamin D3) (Vitamin D3) 1,000 Unit Tablet, 1,000 UNITS PO QPM, (Reported) Cyanocobalamin (Vitamin B-12) (Vitamin B12) 2,500 Mcg Tablet, 2,500 MCG PO QPM, (Reported) Dorzolamide HCl/Timolol Maleat (Dorzolamide-Timolol Eye Drops) 10 Ml Drops, 1 DROP OD BID, (Reported) Ferrous Sulfate (Ferrous Sulfate) 325 Mg Tablet, 325 MG PO BID, (Reported) NOON AND EVENING Latanoprost/Pf (Latanoprost 0.005% Eye Drop) 7.5 Ml Drops, 1 DROP OD QHS, (Reported) Levothyroxine Sodium (Levothyroxine Sodium) 125 Mcg Tablet, 125 MCG PO DAILY, (Reported) Lisinopril (Lisinopril) 20 Mg Tablet, 20 MG PO DAILY, (Reported) Multivitamins (Thera M Plus Tablet) 1 Each Tablet, 1 TAB PO QPM, (Reported) [place]-3 Fatty Acids/Fish Oil (Fish Oil 1,000 mg Capsule) 1 Each Capsule, 1,000 MG PO QPM, (Reported) Paroxetine HCl (Paroxetine HCl) 20 Mg Tablet, 20 MG PO QHS, (Reported) Potassium Gluconate (Potassium Gluconate) 99 Mg Tablet, 99 MG PO DAILY, (Reported) Allergies Coded Allergies: No Known Allergies (Verified , 01/22/07) ALEX WU MD Jun 01, 2021 14:44
[2021-06-01 16:19] LABS: HEMOGLOBIN A1c 5.7 %
== END 2021-06-01 13:50 | disposition home or self-care (01) ==
LOC: M ED 09:58 → M ED INP 09:59
PROVIDERS: ADMIT Family Medicine; ATTEND Family Medicine
DX: I63.9 Cerebral infarction, unspecified (principal); H81.13 Benign paroxysmal vertigo, bilateral; J44.9 Chronic obstructive pulmonary disease, unspecified; I10 Essential (primary) hypertension; E78.49 Other hyperlipidemia; G47.33 Obstructive sleep apnea (adult) (pediatric); Z85.850 Personal history of malignant neoplasm of thyroid; Z85.46 Personal history of malignant neoplasm of prostate; E03.9 Hypothyroidism, unspecified; Z87.891 Personal history of nicotine dependence; Z79.82 Long term (current) use of aspirin; Z79.899 Other long term (current) drug therapy
CPT/HCPCS: 36415; 70450; 70544; 70551; 71046; 80048; 80053; 80061; 82550; 82553; 83036; 83735; 84439; 84443; 84484; 85025; 85027; 87631; 93005; 93041; 94760; 99285; G0378

== ENCOUNTER → 2021-06-08 | Outpatient (CLI) | payer MEDICARE, BC ==
[~2021-06-08] MED LIST changes: +ASPI-551 PO; +B-122500 PO; +LEVO125T4 PO; +MECL-86 PO; +PARO20TA3 PO; +POTA595T8 PO
[2021-06-08 16:17] LABS: CALCIUM LEVEL 7.5 MG/DL (8.8-10.2)
[2021-06-08 16:38] LABS: TOTAL 25(OH) VITAMIN D 39.4 NG/ML (30.0-100.0)
== END ==
LOC: M WUC 09:15
PROVIDERS: ATTEND Nurse Practitioner Family
DX: E83.51 Hypocalcemia (principal)

== ENCOUNTER → 2021-07-06 | Outpatient (CLI) | payer MEDICARE, BC ==
[~2021-07-06] MED LIST changes: -KLOR20TA42 PO; -LISI20TA20 PO; +LISI20TA37 PO; +POTA-141 PO
== END ==
LOC: M WUC 10:04
PROVIDERS: ATTEND Nurse Practitioner Family
DX: E83.51 Hypocalcemia (principal)

== ENCOUNTER → 2021-08-13 | Outpatient (CLI) | payer BC, MEDICARE ==
[~2021-08-13] MED LIST changes: +LISI20TA20 PO; -LISI20TA37 PO
== END ==
LOC: M LABSMTC 09:08
PROVIDERS: ATTEND Anesthesiology
DX: Z01.812 Encounter for preprocedural laboratory examination (principal); Z20.822 Contact with and (suspected) exposure to COVID-19

== ENCOUNTER 2021-08-18 11:15 | Day surgery (SDC) | payer MEDICARE ==
[~2021-08-18] VITALS: Ht 170.2 cm; Wt 93.0 kg
[~2021-08-18 11:15] MED LIST changes: +NS 1,000 ML IV ONE
--- OUTSIDE RECORDS SUMMARY | 2021-08-18 11:25 | CCD ---
Author Author Paulo Inman MD [facility] Organization Paulo Inman MD [facility] Address [address] [place] [id number] Phone Care Team Providers Care Farm Advisor Name Role Phone Storm [place], REINALDO, Paulo Montes Unavailable [phone] Joe Reynoso MD PP [phone] Reason for Referral No Reason for Referral Recorded Problems Includes: Active, inactive, and resolved Problems All Visits Onset Date - Time Resolved Date - Time Provider Co ndition Status Glaucoma Open-angle Primary 10/02/2018 - 12:00AM Paulo Inman MD, FACS Active History of Nicotine Dependence 10/02/2018 - 12:00AM Paulo Inman MD, FACS Active Essential Hypertension 10/02/2018 - 12:00AM Paulo Flowers MD, FACS Active Retinopathy Hypertensive 10/02/2018 - 12:00AM Paulo Inman MD, FACS Active Senile ectropion of right lower eyelid 12/22/2015 - 12:00AM Paulo Rojas MD, FACS Active Senile ectropion of left lower eyelid 12/22/2015 - 12:00AM Paulo Inman MD, FACS Active Cataract Senile Cortical 10/07/2015 - 12:00AM Paulo Inman MD, FACS Active Note: of the right eye Glaucoma Open-angle Primary Both Eyes 10/07/2015 - 12:00AM Paulo Inman MD, FACS Inactive Note: mild Cataract Senile Cortical Anterior 12/05/2013 - 12:00AM Paulo Inman MD, FACS Inactive Note: Unchanged Glaucoma Stage Mild 12/05/2013 - 12:00AM Paulo Young MD, FACS Inactive Note: Unchanged Cataract Senile Nuclear 12/05/2013 - 12:00AM Paulo Inman MD, FACS Active Note: Unchanged - of the rig ht eye Corneal Scar Left Eye 05/30/2013 - 12:00AM Paulo Camp MD, FACS Active Note: Unchanged Dermatochalasis Both Eyelids 05/30/2013 - 12:00AM Paulo Inman MD, FACS Inactive Note: Unchanged Glaucoma Open-angle Both Eyes 05/30/2013 - 12:00AM Paulo Inman MD, FACS Inactive Note: Unchanged Cataract Senile Hypermature 05/30/2013 - :00AM Paulo Inman MD, FACS Active Note: Unchanged - of the lef t eye Retinopathy Hypertensive Right Eye 05/30/2013 - :00AM Paulo Inman MD, FACS Inactive Note: Unchanged Strabismus Non-paralytic Exotropia Monocular Left Eye 05/30/2013 - :00AM Paulo Inman MD, FACS Active Note: Unchanged Iris Atrophy - Left Eye 05/30/2013 - 12:00AM Paulo Inman MD, FACS Active Note: Unchanged Dry Eye Syndrome Both Eyes 05/30/2013 - :00AM Paulo Inman MD, FACS Active Note: Unchanged Vitreous Floaters Right Eye 05/30/2013 - :00AM Paulo Inman MD, FACS Active Note: Unchanged Plan of Treatment Findings Encounter Date Ordered optical coherence tomography : A n optical coherence tomography scan of the disc for primary open angle glaucoma is indicated to determine if there are any structural changes to the optic nerve 7 Month Follow-Up with Paulo Rojas MD, FACS 04/28/2016 Assessments Includes: Assessments for all patient encounters Findings Encounter Date Cortical senile cataract 5 Month Follow-Up with Paulo Owens MD, FACS 02/03/2021 Essential hypertension 5 Month Follow-Up with Paulo Rivero MD, FACS 02/03/2021 History of nicotine dependence 5 Month Follow-Up with Paulo Inman MD, FACS 02/03/2021 Hypermature senile cataract 5 Month Follow-Up with Paulo Inman MD, FACS 02/03/2021 Hypertensive retinopathy 5 Month Follow-Up with Paulo Owens MD, FACS 02/03/2021 Nuclear senile cataract 5 Month Follow-Up with Paulo Young MD, FACS 02/03/2021 Primary open-angle glaucoma 5 Month Follow-Up with Paulo Inman MD, FACS 02/03/2021 Cortical senile cataract 5 Month Follow-Up and Testin g with Paulo Inman MD, FACS 08/26/2020 Essential hypertension 5 Month Follow-Up and Testin g with Paulo Inman MD, FACS 08/26/2020 History of nicotine dependence 5 Month Follow-Up and T esting with Paulo Inman MD, FACS 08/26/2020 Hypermature senile cataract 5 Month Follow-Up and Test ing with Paulo Rojas MD, FACS 08/26/2020 Hypertensive retinopathy 5 Month Follow-Up and Testin g with Paulo Inman MD, FACS 08/26/2020 Nuclear senile cataract 5 Month Follow-Up and Testin g with Paulo Inman MD, FACS 08/26/2020 Primary open-angle glaucoma 5 Month Follow-Up and Test ing with Paulo Rojas MD, FACS 08/26/2020 Cortical senile cataract 6 Month Follow-Up with Paulo Owens MD, FACS 04/14/2020 Essential hypertension 6 Month Follow-Up with Paulo Rivero MD, FACS 04/14/2020 History of nicotine dependence 6 Month Follow-Up with Paulo Inman MD, FACS 04/14/2020 Hypermature senile cataract 6 Month Follow-Up with Paulo Inman MD, FACS 04/14/2020 Hypertensive retinopathy 6 Month Follow-Up with Paulo Owens MD, FACS 04/14/2020 Nuclear senile cataract 6 Month Follow-Up with Paulo Young MD, FACS 04/14/2020 Primary open-angle glaucoma 6 Month Follow-Up with Paulo Inman MD, FACS 04/14/2020 Cortical senile cataract 6 Month follow up with harry rowan with Paulo Inman MD, FACS 10/03/2019 Essential hypertension 6 Month follow up with harry rowan with Paulo Inman MD, FACS 10/03/2019 History of nicotine dependence 6 Month follow up with testing with Paulo Inman MD, FACS 10/03/2019 Hypertensive retinopathy of the right eye 6 Month foll ow up with testing with Paulo Inman MD, FACS 10/03/2019 Nuclear senile cataract 6 Month follow up with harry rowan with Paulo Inman MD, FACS 10/03/2019 Primary open-angle glaucoma 6 Month follow up with eliel mckenzie with Paulo Rojas MD, FACS 10/03/2019 Cortical senile cataract 6 Month Follow-Up with Paulo Owens MD, FACS 04/05/2019 Hypermature senile cataract 6 Month Follow-Up with Paulo Inman MD, FACS 04/05/2019 Nuclear senile cataract 6 Month Follow-Up with Paulo Young MD, FACS 04/05/2019 Primary open-angle glaucoma 6 Month Follow-Up with Paulo Inman MD, FACS 04/05/2019 Cortical senile cataract 8 Month Follow-Up with Paulo Owens MD, FACS 10/02/2018 Essential hypertension 8 Month Follow-Up with Paulo Rivero MD, FACS 10/02/2018 History of nicotine dependence 8 Month Follow-Up with Paulo Inman MD, FACS 10/02/2018 Hypertensive retinopathy 8 Month Follow-Up with Paulo Owens MD, FACS 10/02/2018 Nuclear senile cataract 8 Month Follow-Up with Paulo Young MD, FACS 10/02/2018 Primary open-angle glaucoma 8 Month Follow-Up with Paulo Inman MD, FACS 10/02/2018 Hypermature senile cataract 6 Month Follow-Up with Paulo Inman MD, FACS 02/01/2018 Hypertensive retinopathy of the right eye 6 Month Foll ow-Up with Paulo Rojas MD, FACS 02/01/2018 Nuclear senile cataract 6 Month Follow-Up with Paulo Young MD, FACS 02/01/2018 Primary open-angle glaucoma of both eyes 6 Month Follo w-Up with Paulo Rojas MD, FACS 02/01/2018 Right cortical senile cataract 6 Month Follow-Up with Paulo Inman MD, FACS 02/01/2018 Dry eye syndrome of both eyes 6 Month Follow-Up with Melanie Inman MD, FACS 08/03/2017 Nuclear senile cataract 6 Month Follow-Up with Paulo Young MD, FACS 08/03/2017 Primary open-angle glaucoma of both eyes 6 Month Follo w-Up with Paulo Rojas MD, FACS 08/03/2017 Right cortical senile cataract 6 Month Follow-Up with Paulo Inman MD, FACS 08/03/2017 Essential hypertension 7 Month Follow-Up and Testin g with Paulo Inman MD, FACS 12/09/2016 History of nicotine dependence 7 Month Follow-Up and T esting with Paulo Inman MD, FACS 12/09/2016 Hypertensive retinopathy of the right eye 7 Month Foll ow-Up and Testing with Paulo Inman MD, FACS 12/09/2016 Nuclear senile cataract 7 Month Follow-Up and Testin g with Paulo Inman MD, FACS 12/09/2016 Primary open-angle glaucoma of both eyes 7 Month Follo w-Up and Testing with Paulo Inman MD, FACS 12/09/2016 Right cortical senile cataract 7 Month Follow-Up and T esting with Paulo Inman MD, FACS 12/09/2016 Cortical senile cataract 7 Month Follow-Up with Paulo Owens MD, FACS 04/28/2016 Essential hypertension 7 Month Follow-Up with Paulo Rivero MD, FACS 04/28/2016 History of nicotine dependence 7 Month Follow-Up with Paulo Inman MD, FACS 04/28/2016 Hypertensive retinopathy of the right eye 7 Month Foll ow-Up with Paulo Rojas MD, FACS 04/28/2016 Nuclear senile cataract 7 Month Follow-Up with Paulo Young MD, FACS 04/28/2016 Primary open-angle glaucoma of both eyes 7 Month Follo w-Up with Paulo Rojas MD, FACS 04/28/2016 Cortical senile cataract 7 Month Follow-Up with Paulo Owens MD, FACS 10/07/2015 Dry eye syndrome of both eyes 7 Month Follow-Up with Melanie Inman MD, FACS 10/07/2015 Hypermature senile cataract 7 Month Follow-Up with Paulo Inman MD, FACS 10/07/2015 Nuclear senile cataract 7 Month Follow-Up with Paulo Young MD, FACS 10/07/2015 Primary open-angle glaucoma in both eyes 7 Month Follo w-Up with Paulo Rojas MD, FACS 10/07/2015 Anterior cortical senile cataract right eye 1 Year Fo llow-Up with Paulo Inman MD, FACS 03/02/2015 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 1 Year Follow-Up with Paulo Inman MD, FACS 03/02/2015 Dermatochalasis of both eyes 1 Year Follow-Up with Paulo Inman MD, FACS 03/02/2015 Dry eye syndrome of both eyes 1 Year Follow-Up with Kobi Inman MD, FACS 03/02/2015 Hypermature senile cataract left eye 1 Year Follow-Up with Paulo Inman MD, FACS 03/02/2015 Hypertensive retinopathy of the right eye 1 Year Follo w-Up with Paulo Rojas MD, FACS 03/02/2015 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 1 Year Follow-Up with Paulo Inman MD, FACS 03/02/2015 Mild stage glaucoma 1 Year Follow-Up with Paulo corley MD, FACS 03/02/2015 Monocular exotropia of the left eye 1 Year Follow-Up w ith Paulo Inman MD, FACS 03/02/2015 Nuclear senile cataract right eye 1 Year Follow-Up wi th Paulo Inman MD, FACS 03/02/2015 Open-angle glaucoma in both eyes 1 Year Follow-Up with Paulo Inman MD, FACS 03/02/2015 Vitreous floaters in the right eye 1 Year Follow-Up wi th Paulo Inman MD, FACS 03/02/2015 Mild stage glaucoma 3 Month Follow-Up with Paulo mccallum MD, FACS 03/08/2014 Open-angle glaucoma in both eyes 3 Month Follow-Up wit h Paulo Inman MD, FACS 03/08/2014 Anterior cortical senile cataract of the right eye 6 Month Follow-Up with Paulo Inman MD, FACS 12/05/2013 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 6 Month Follow-Up with Kobi Inman MD, FACS 12/05/2013 Dermatochalasis of both eyes 6 Month Follow-Up with Kobi Inman MD, FACS 12/05/2013 Dry eye syndrome of both eyes 6 Month Follow-Up with Melanie Inman MD, FACS 12/05/2013 Hypermature senile cataract 6 Month Follow-Up with Paulo Inman MD, FACS 12/05/2013 Hypertensive retinopathy of the right eye 6 Month Foll ow-Up with Paulo Rojas MD, FACS 12/05/2013 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 6 Month Follow-Up with Kobi Inman MD, FACS 12/05/2013 Mild stage glaucoma 6 Month Follow-Up with Paulo mccallum MD, FACS 12/05/2013 Monocular exotropia of the left eye 6 Month Follow-Up with Paulo Inman MD, FACS 12/05/2013 Nuclear senile cataract of the right eye 6 Month Foll ow-Up with Paulo Rojas MD, FACS 12/05/2013 Open-angle glaucoma in both eyes 6 Month Follow-Up wit h Paulo Inman MD, FACS 12/05/2013 Vitreous floaters in the right eye 6 Month Follow-Up w ith Paulo Inman MD, FACS 12/05/2013 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 NEW PATIENT WITH REFERRAL with Paulo Inman MD, FACS 05/30/2013 Dermatochalasis of both eyes NEW PATIENT WITH REFERRAL with Paulo Inman MD, FACS 05/30/2013 Dry eye syndrome of both eyes NEW PATIENT WITH REFERRA L with Paulo Inman MD, FACS 05/30/2013 Hypermature senile cataract of the left eye NEW PATIE NT WITH REFERRAL with Paulo Inman MD, FACS 05/30/2013 Hypertensive retinopathy of the right eye NEW PATIENT WITH REFERRAL with Paulo Inman MD, FACS 05/30/2013 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 NEW PATIENT WITH REFERRAL with Paulo Inman MD, FACS 05/30/2013 Monocular exotropia of the left eye NEW PATIENT WITH R EFERRAL with Paulo Inman MD, FACS 05/30/2013 Open-angle glaucoma in both eyes NEW PATIENT WITH REFE RRAL with Paulo Rojas MD, FACS 05/30/2013 Vitreous floaters in the right eye NEW PATIENT WITH RE FERRAL with Paulo Inman MD, FACS 05/30/2013 Instructions Instructions not supported for this document typeNo Instructions Recorded Medical Equipment - Implanted Devices Includes: Current and historical DevicesNo Medical Equipment Recorded Medications Includes: Current and historical Medications Current Medications (continue as prescribed) Latanoprost 0.005% Ophthalmic Solution 07/05/2021 Don grimes: Paulo Inman MD, FACS Diagnosis: Primary open-angle g laucoma, bilateral, mild stage One drop to the right eye at night Dorzolamide HCl-Timolol Mal 22.3-6.8 MG/ML Ophthalmic Soluti on 08/26/2020 Provider: Paulo Inman MD, FACS Diagnosis: Primary open-angle g laucoma, bilateral, mild stage One drop to the right eye twice a day Levothyroxine Sodium 200 MCG Tablet 12/22/2015 Prov ider: Diagnosis: Klor-Con M20 20 MEQ Tablet, controlled-release 10/07/2015 Provider: Diagnosis: Calcitriol 0.25 MCG Capsule, conventional 10/07/2015 Provider: Diagnosis: Iron 28 MG Tablet 10/07/2015 Provider: Diagnosis: Calcium Citrate + D 315-250 MG-UNIT Tablet 03/02/2015 Provider: Diagnosis: 6 Tabs a day Ferrous Sulfate 325 (65 Fe) MG OR TABS 12/05/2013 P rovider: Diagnosis: Atorvastatin Calcium 80 MG OR TABS 12/05/2013 Provi can: Diagnosis: PA Vitamin D-3 25 MCG (1000 UT) OR TABS 12/05/2013 Provider: Diagnosis: EQL Fish Oil 1200 MG OR CAPS 05/30/2013 Provider: Diagnosis: RA Vitamin B12 2000 MCG OR TBCR 05/30/2013 Provider : Diagnosis: Aspirin 81 MG OR TABS 05/30/2013 Provider: Diagnosis: Potassium Chloride Melva ER 10 MEQ OR TBCR 05/30/2013 Provider: Diagnosis: Lisinopril-hydroCHLOROthiazide 20-25 MG TABS 05/30/2013 Provider: Diagnosis: Past Medications on file Latanoprost 0.005% Ophthalmic Solution 06/29/2021 - 07/05/20 21 Provider: Paulo Inman MD FACS Diagnosis: Primary open-angle g laucoma, bilateral, mild stage One drop to the right eye at night Latanoprost 0.005% Ophthalmic Solution 08/26/2020 - 06/29/20 21 Provider: Paulo Inman MD, FACS Diagnosis: Primary open-angle g laucoma, bilateral, mild stage One drop to the right eye at night Latanoprost 0.005% Ophthalmic Solution 04/14/2020 - 08/26/20 20 Provider: Paulo Inman MD, FACS Diagnosis: Primary open-angle g laucoma, bilateral, mild stage One drop to the right eye at night Dorzolamide HCl-Timolol Mal 22.3-6.8 MG/ML Ophthalmic Solution 04/14/2020 - 08/26/2020 Provider: Paulo Inman MD, FACS Diagnosis: Primary open-angle g laucoma, bilateral, mild stage One drop to the right eye twice a day Latanoprost 0.005% Ophthalmic Solution 04/24/2019 - 08/26/20 20 Provider: Paulo Inman MD, FACS Diagnosis: Primary open-angle g laucoma, bilateral, mild stage One drop in the right eye at bed time. Dorzolamide HCl-Timolol Mal 22.3-6.8MG/ML Ophthalmic S olution 04/05/2019 - 08/26/2020 Provider: Paulo Inman MD, FACS Diagnosis: Primary open-angle g laucoma, bilateral, mild stage One drop twice a day in the right eye Latanoprost 0.005% Ophthalmic Solution 04/05/2019 - 04/24/20 19 Provider: Paulo Inman MD, FACS Diagnosis: Primary open-angle g laucoma, bilateral, mild stage One drop in the right eye at bed time. Dorzolamide HCl-Timolol Mal 22.3-6.8MG/ML Ophthalmic S olution 10/02/2018 - 04/05/2019 Provider: Paulo Inman MD, FACS Diagnosis: Primary open-angle g laucoma, bilateral, mild stage One drop twice a day in the right eye Latanoprost 0.005% Ophthalmic Solution 10/02/2018 - 04/05/20 19 Provider: Paulo Inman MD, FACS Diagnosis: Primary open-angle g laucoma, bilateral, mild stage One drop in the right eye at bed time. Latanoprost 0.005% Ophthalmic Solution 08/17/2018 - 10/02/20 18 Provider: Paulo Inman MD, FACS Diagnosis: Primary open-angle g laucoma, bilateral, mild stage One drop in the right eye at bed time. Latanoprost 0.005% Ophthalmic Solution 01/09/2018 - 08/17/20 18 Provider: Paulo Inman MD, FACS Diagnosis: Primary open-angle g laucoma, bilateral, mild stage One drop in the right eye at bed time. Latanoprost 0.005% Ophthalmic Solution 08/03/2017 - 01/10/20 18 Provider: Paulo Inman MD, FACS Diagnosis: Primary open-angle g laucoma, bilateral, mild stage One drop in the right eye at bed time. Dorzolamide HCl-Timolol Mal 22.3-6.8MG/ML Ophthalmic S olution 08/03/2017 - 10/02/2018 Provider: Paulo Inman MD, FACS Diagnosis: Primary open-angle g laucoma, bilateral, mild stage One drop twice a day in the right eye Dorzolamide HCl-Timolol Mal 22.3-6.8MG/ML Ophthalmic S olution 12/09/2016 - 08/03/2017 Provider: Paulo Inman MD, FACS Diagnosis: Primary open-angle g laucoma, bilateral, mild stage One drop twice a day in the right eye Latanoprost 0.005% Ophthalmic Solution 12/09/2016 - 08/03/20 17 Provider: Paulo Inman MD, FACS Diagnosis: Primary open-angle g laucoma, bilateral, mild stage One drop in the right eye at bed time. Latanoprost 0.005 % Solution 04/28/2016 - 12/09/2016 Provide r: Paulo Inman MD, FACS Diagnosis: Primary open-angle g laucoma, mild stage One drop in the right eye at bed time. Dorzolamide HCl-Timolol Mal 22.3-6.8 MG/ML Solution 04/28/20 16 - 12/09/2016 Provider: Paulo Inman MD, FACS Diagnosis: Primary open-angle g laucoma, mild stage One drop twice a day in the right eye Dorzolamide HCl-Timolol Mal 22.3-6.8 MG/ML Solution 03/10/20 16 - 04/28/2016 Provider: Paulo Inman MD, FACS Diagnosis: Primary open-angle g laucoma, mild stage One drop twice a day in the right eye Dorzolamide HCl-Timolol Mal 22.3-6.8 MG/ML Solution 10/07/20 15 - 03/10/2016 Provider: Paulo Inman MD, FACS Diagnosis: Primary open-angle g laucoma, mild stage One drop twice a day in the right eye Latanoprost 0.005 % Solution 10/07/2015 - 04/28/2016 Provide r: Paulo Inman MD, FACS Diagnosis: Primary open-angle g laucoma, mild stage One drop in the right eye at bed time. Dorzolamide HCl-Timolol Mal 22.3-6.8 MG/ML Solution 03/02/20 15 - 10/07/2015 Provider: Paulo Inman MD, FACS Diagnosis: Open-angle glaucoma NOS One drop twice a day in the right eye Latanoprost 0.005 % Solution 03/02/2015 - 12/22/2015 Provide r: Paulo Inman MD, FACS Diagnosis: Open-angle glaucoma NOS one drop at night in the right eye Latanoprost 0.005% OP SOLN 03/08/2014 - 03/02/2015 Provider: Paulo Inman MD, FACS Diagnosis: Open-angle glaucoma NOS one drop at night in the right eye Dorzolamide HCl-Timolol Mal 22.3-6.8 MG/ML OP SOLN 4 - 03/02/2015 Provider: Paulo Inman MD, FACS Diagnosis: Open-angle glaucoma NOS Dorzolamide HCl-Timolol Mal 22.3-6.8 MG/ML OP SOLN - 12/06/2013 Provider: Paulo Inman MD, FACS Diagnosis: Open-angle glaucoma NOS Naproxen 500 MG OR TABS 12/05/2013 - 03/02/2015 Provider: Diagnosis: Latanoprost 0.005% OP SOLN 12/05/2013 - 10/07/2015 Provider: Diagnosis: Calcium Citrate + D 315-250 MG-UNIT OR TABS 12/05/2013 - 08/2015 Provider: Diagnosis: 6 per day Latanoprost 0.005% OP SOLN 05/30/2013 - 12/05/2013 Provider: Diagnosis: QHS OD Levothyroxine Sodium 75 MCG OR TABS 05/30/2013 - 12/22/2015 Provider: Diagnosis: Calcium Citrate + D 315-250 MG-UNIT OR TABS 05/30/2013 - Provider: Diagnosis: 6 per day Simvastatin 40 MG OR TABS 05/30/2013 - 12/22/2015 Provider: Diagnosis: Dorzolamide HCl-Timolol Mal 22.3-6.8 MG/ML OP SOLN 3 - 12/05/2013 Provider: Diagnosis: Medications Administered Includes: Administered Medications in patient's chartNo Administered Medications Recorded Vital Signs Includes: Vital Signs from 07/19/2020 through 07/19/2021No Vital Signs Recorded For Specified Dates Results Includes: Results from 07/19/2020 through 07/19/2021No Results Recorded For Specified Dates History of Present Illness History of Present Illness not supported for this document typeNo History of Present Illness Recorded Social History Description Last Updated Tobacco non-user 02/03/2021 No consumption of alcohol 08/26/2020 No tobacco use 08/26/2020 Not using drugs 08/26/2020 Smoking status : Former smoker 08/26/2020 Previous smoking history 05/30/2013 Procedures and Surgical History Includes: Procedures from 07/19/2020 through 07/19/2021 Procedures Code Diagnosis Performing Provider Service Location Service Date Intermediate Eye Exam Established Patient [id number] Primary open-angle glaucoma, bilateral, mild stage, Hypertensive retinopathy, bilateral, Essential (primary) hypertension, Personal history of nicotine dependence Paulo Inman MD, REINALDO Inman MD [facility] 02/03/2021 Comprehensive eye exam established patient (Signi/Sep Eval. & Man.) [id number] Primary open-angle glaucoma, bilateral, mild stage, Age-related cataract, morgagnian type, left eye, Hypertensive retinopathy, bilateral, Essential (primary) hypertension Paulo Inman MD, REINALDO Inman MD [facility] 08/26/2020 Scodi, optic nerve with interpretation a nd report (WAIVER OF LIABILITY ON FILE (ABN)) [id number] Primary open-angle glaucoma, bilateral, mild stage Paulo Rojas MD, REINALDO Inman MD [facility] 08/26/2020 Surgical History Last Updated Surgical / procedural history : Knee Rep lacement, Appendectomy, T & A, Thyroidectomy 1960 05/30/2013 Medical History Includes: Medical History in patient's chart Description Last Updated History of essential hypertension 10/07/2015 No recent change in medical history 12/05/2013 Currently wearing eyeglasses 05/30/2013 Reported medical history : Prostate Canc er, Thyroid Cancer, Hypoparathyroidism, COPD 05/30/2013 History of arthritis 05/30/2013 History of hyperlipidemia 05/30/2013 History of hypertension 05/30/2013 Family History Includes: Family History in patient's chart Description Last Updated Maternal history of arthritis 03/02/2015 Maternal history of cataract 03/02/2015 Maternal history of diabetes mellitus 03/02/2015 Paternal history of arthritis 03/02/2015 Son's history of hypertension 03/02/2015 Review of Systems Review of Systems not supported for this document typeNo Review of Systems Recorded Mental Status Mental Status not supported for this document typeNo Mental Status Recorded Functional Status Functional Status not supported for this document typeNo Functional Status Recorded Physical Exam Physical Exam not supported for this document typeNo Physical Exam Recorded Immunizations Includes: Immunizations in patient's chartNo Immunizations Recorded Allergies Includes: Active, inactive, and resolved AllergiesNo Known Allergies Encounters Includes: Encounters from 07/19/2020 through 07/19/2021 Encounter Provider Location Date Check-In Time Check-Out Time D iagnosis Rx Refills/Changes Paulo Inman MD, FACS 07/05/2021 02/03/2021 9:38AM 02/03/2021 11:59PM Rx Refills/Changes Paulo Inman MD, FACS 06/29/2021 02/03/2021 7:53AM 02/03/2021 11:59PM 5 Month Follow-Up Paulo Inman MD, FACS Paulo Inman MD [facility] 02/03/2021 9:33AM 9:59AM Glaucoma Open-angle Primary, History of Nicotine Dependence, Essential Hypertension, Retinopathy Hypertensive, Cataract Senile Cortical, Cataract Senile Nuclear, Cataract Senile Hypermature 5 Month Follow-Up and Testing Paulo Inman MD, FACS Melanie Imnan MD [facility] 08/26/2020 8:43AM 10:02AM Glaucoma Open-an gle Primary, History of Nicotine Dependence, Essential Hypertension, Retinopathy Hypertensive, Cataract Senile Cortical, Cataract Senile Nuclear, Cataract Senile Hypermature Insurance Includes: Active Insurance Policies Plan Name Member ID Group # Subscriber Relationship Effective Da eliel 1 - Medicare Part B [facility] ([facility]) [id number] Bebeto Samano Self 2 - [facility] [id number] Bebeto Samano Self Advance Directives Includes: Current Advance DirectivesNo Advance Directives Recorded Health Concerns Includes: Active Health ConcernsNo Active Health Concerns Recorded Goals Includes: Active GoalsNo Active Goals Recorded Interventions Includes: Interventions for active GoalsNo Interventions Recorded Evaluations & Outcomes Includes: Evaluations & Outcomes for active GoalsNo Outcomes Recorded
--- OUTSIDE RECORDS SUMMARY | 2021-08-18 11:25 | CCD | Continuity of Care Document ---
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 Hypocalcemia Larissa La MD Onset: 01/12/2012 Social History Type Date Description Comments Sex Unknown Cigarette Use Former Cigarette Smoker 1 Pack D aily quit in 1999 ETOH Use Denies alcohol use Tobacco Use Start: Unknown End: Unknown Patient is a former smoker Smoking Status Reviewed: 06/11/21 Patient is a former smoker Allergies, Adverse Reactions, Alerts Description No Information Available Medications Active Medications SIG Qnty Indications Ordering Provide r Date Levothyroxine Sodium 150mcg Tablet s 1 tab by mouth every day 90tabs E89.0 Chantale He NP 2018 Calcitriol 0.25mcg Capsules take one capsule by mouth breakfast and dinner 60caps Chantale He NP 06/24/2015 Calcium With Vitamin D 600-800 Tab lets 2 tablets daily Unknown Latanoprost 0.005% Solution 1 drop ea eye nightly Unknown Dorzolamide HCL/Timolol Maleate 22.3-6.8mg/ml Solution Unknown Fish Oil 1000mg Capsules 1 p. o. qd Unknown Atorvastatin Calcium 80mg Tablets qd Unknown Vitamin B 12 500mg 1 po qd Unknown Potassium Gluconate 99mg Tablets 1 by mouth every day Unknown One Daily Mens Tablets 1 po qd Unknown Lisinopril 10mg Tablets 1 by mouth every day Unknown QC Ferrous Sulfate 325(65Fe) mg Ta blets 1 po bid Unknown Gabapentin 300mg Capsules 1 P O qd Unknown Immunizations Description No Information Available Vital Signs Date Vital Result Comment 06/11/2021 8:27am BP Systolic 110 mmHg BP Diastolic 72 mmHg Heart Rate 68 /min Height 66 inches 5'6" Weight 205.19 lb BMI (Body Mass Index) 33.1 kg/m2 05/26/2021 3:27pm BP Systolic 142 mmHg BP Diastolic 70 mmHg Heart Rate 62 /min Height 66 inches 5'6" Weight 201.00 lb BMI (Body Mass Index) 32.4 kg/m2 O2 % BldC Oximetry 98 % Results Test Acquired Date Facility Test Result H/L Range Note Laboratory test finding 07/06/2021 [facility] [address] [place] [address] [phone] - Calcium Level 8.3 mg/dL Low 8.8-10.2 1 Laboratory test finding 06/08/2021 [facility] [address] [place] [address] (315)- - Calcium Level 7.5 mg/dL Low 8.8-10.2 2 Total 25(Oh) Vitamin D 39.4 NG/ML Normal 30.0-100.0 3 1 note:<nlbl:demographic_chang ed> 2 note:<nlbl:demographic_[facility] ed> 3 note:<nlbl:demographic_chang ed> Procedures Date Code Description Status 06/11/2021 94677 Office/Outpatient Established Mo d MDM 30-39 Min Completed 05/26/2021 43196 Office/Outpatient Established Mo d MDM 30-39 Min Completed Medical Devices Description No Information Available Encounters Type Date Location Provider Dx Diagnosis Office Visit 06/11/2021 8:30a DR. Larissa He, N P E83.51 Hypocalcemia Office Visit 05/26/2021 3:15p DR. Larissa He, N P E89.0 Postprocedural hypothyroidism E83.51 Hypocalcemia Assessments Date Code Description Provider 06/11/2021 E83.51 Hypocalcemia Chantale Lobato ce, PHARMACY DIRECTOR 05/26/2021 E89.0 Postprocedural hypothyroidism Elidia He NP 05/26/2021 E83.51 Hypocalcemia Chantale roberto NP Plan of Treatment Future Appointment(s):* 10/11/2021 8:45 am - Larissa La MD at DR. 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 callie= 9.4,, Vit d= 52Currently Calcum 1250 mg qhs- often missing doses. Calcitriol 0.25 mg 1 tab dinnerLabs done 05/17/21- calcium 7.7- pt denies any sx. Explained importance of not missing doses of calcium .Advised to move calcium to dinnertime. Labs rechecked 06/08/21- calcium= 7.5, Vit D= 39.4Will increase Calcitriol 0.25mg 1 tab breakfast and dinner. Pt verbalizes understanding. Recheck in 2 week - will call pt with results * Follow up:* Will call pt with lab results in 2 weeks. RTO 4 months. CBF Functional Status Description No Information Available Mental Status Description No Information Available Referrals Description No Information Available
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
--- OUTSIDE RECORDS SUMMARY | 2021-08-18 11:25 | CCD ---
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 Active confirmed 79110588 Problem Knee pain M25.569 Active confirmed 81929038 Problem Hyperlipidemia E78.5 Active confirmed 05217 004 Problem 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 Active confirmed 851922750 Problem Partial thickness burn of right upper arm, subse quent encounter T22.231D Active confirmed 19547073 Problem 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 Active confirmed 3 4805867 Problem Partial thickness burn of right upper arm, initial enc ounter T22.231A Active confirmed 18578675 Problem Unspecified vitamin D deficiency E55.9 Active conf irmed 65653861 Problem 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9 Active confirmed 77631703 Problem Actinic keratosis L57.0 Active confirmed 20 3758777 Problem Primary osteoarthritis involving multiple joints M 15.0 Active confirmed 728951955 Problem Impaired fasting glucose R73.01 Active confirmed 017862508 Problem Partial thickness burn of right thumb, initial encounter T23.211A Active confirmed 6961310 Problem 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 Active confirmed 831350589 Problem Partial thickness burn of chest wall, initial encounter T21.21XA Active confirmed 13653385 Problem Obesity, unspecified E66.9 Active confirmed 221288292 Problem Partial thickness burn of right thumb, subsequent enco unter T23.211D Active confirmed 1593865 Problem Partial thickness burn of chest wall, subsequent encounter T21.21XD Active confirmed 28650826 Problem Calculus of gallbladder without cholecystitis wi thout obstruction K80.20 Active confirmed 92067354 Problem 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 Active confirmed 824465985 Problem Adjustment disorder with depressed mood F43.21 Active confirmed 75068234 Problem Hypocalcemia E83.51 Active confirmed 8535297 Problem Urge incontinence N39.41 Active confirmed 87 579244 Problem Grief F43.20 Active confirmed 849181885 Problem Open-angle glaucoma H40.10X0 Active confirmed 34780584 Problem Insomnia due to other mental disorder F51.05 Ac tive confirmed 81636789 Problem Personal history of malignant neoplasm of thyroid Z85.850 Active confirmed 179218288 Problem Memory changes R41.3 Active confirmed 70692 7006 Problem 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 Active confirmed 513481065 Problem Personal history of tobacco use, presenting hazards to health Z87.891 Active confirmed 6106455122557 Problem Urinary incontinence, unspecified type R32 A ctive confirmed 168886778 Problem 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 53 Active confirmed [id number] ALLERGIES No Known Allergies ENCOUNTERS from 1935 to 2021-07-13 Encounter Location Date Provider Diagnosis [facility] [address] [facility] [phone] [place] [address] Jun, Evelin Barnard IMMUNIZATIONS Vaccine Route Administration Date Status Zoster [...] 50 pack year history REASON FOR REFERRAL No Information VITAL SIGNS No information MEDICATIONS Medication SIG (Take, Route, Frequency, Duration) Notes Start Da te End Date Status Lisinopril 20 MG 1 tablet Orally Once a day for 90 days Active Ibuprofen 600 MG 1 tablet with food or milk a s needed Orally Three times a day prn Active Multivitamin Men 50+ - Orally Ac tive Atorvastatin Calcium 80 MG 1 tablet Orally Once a day at lunch for 90 days Active Aspirin 81 MG 1 tablet Orally Once a day for 30 day(s) started on discharge 06/01/21 from [facility] May, Active Calcitriol 0.25 MCG 1 capsule Orally Once a day for 90 Active Albuterol Sulfate HFA 108 (90 Base) MCG/ACT as directe d Inhalation every 4 hours as needed Active Potassium 99 MG 1 tablet Orally Once a day for 30 day(s) Active Fish Oil 1000 mg 1 cap(s) Orally Once a day Active Xalatan 0.005 % 1 drop into affected eye every evening Ophthalmi c twice daily Active Vitamin D3 Active PARoxetine HCl 20 MG 1 tablet in the morning Orally Once a day f or 30 day(s) Not-Taking Levothyroxine Sodium 150 MCG 1 tablet on an empty stom ach in the morning Orally Once a day Dr. DALEY CHANGED DOSAGE Aug, Active Ferrous Sulfate 325 (65 Fe) MG 1 tablet Orally Twice a day for 90 Active B-12 2500mcg 1 tablet Orally Once a day for 30 day(s) Active amLODIPine Besylate 10 MG 1 tablet Orally Once a day for 90 days Active Dorzolamide HCl 2 % 1 drop into affected eye Ophthalmic RIGHT EYE D AILY bid Active PROCEDURES No Information RESULTS No Results REASON FOR VISIT refill MEDICAL (GENERAL) HISTORY Type Description Date Medical History MICHAEL, non-compliant with CPAP since about 2017 - August Medical History Asthma/Emphysema. Levi 07/23 04/04 FVC 3.17/FEV1 2.18(non specific flow limitation)-August Medical History thyroid cancer/hypothyroidism- Dr Daley Medical History prostate cancer ([facility]) Medical History hypertension, goal 140/90 Medical History hypocalcemia and hypoparathyroidism- Dr Daley. Last appt 10/05 Medical History hyperlipidemia, goal LDL is < 100 Medical History Fe Def Anemia Hgb 13 11/06 Medical History arthritis Medical History Chronic Rt Shoulder pain- [facility]-Dr Caballero Medical History glaucoma ([place] for [facility] ) Medical History Tigger finger Medical History [...] Hospitalization History surgery related Hospitalization History COVID-19 ([facility]) 09/2020 Hospitalization History B/P 05/2021 Goals Section No Information Health Concerns No Information MEDICAL EQUIPMENT No Information MENTAL STATUS No Information FUNCTIONAL STATUS No Information ASSESSMENTS No Information PLAN OF TREATMENT Medication Medication Name Sig Start Date Stop Date Ferrous Sulfate 325 (65 Fe) MG 1 tablet Orally Twice a day for 9 0 Next Appt Details Provider Name:Joe Reynoso, 2021-08-23 9 03:30:00 PM, [address] [facility], , [place], [address], Insurance Providers Payer Name Payer Address Payer Phone Insured Name Patient Relati onship to Insured Coverage Start Date Coverage End Date MEDICARE BLUE O [address] [facility] [address] [facility] [id number] MARIO BLOOM [facility] [address] [place] [address] [id number] MARIO BLOOM
--- OUTSIDE RECORDS SUMMARY | 2021-08-18 11:26 | CCD ---
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 Active confirmed 02985939 Problem Knee pain M25.569 Active confirmed 91791676 Problem Hyperlipidemia E78.5 Active confirmed 89132 004 Problem 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 Active confirmed 369349542 Problem Partial thickness burn of right upper arm, subse quent encounter T22.231D Active confirmed 23888740 Problem 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 Active confirmed 3 0626709 Problem Partial thickness burn of right upper arm, initial enc ounter T22.231A Active confirmed 97269368 Problem Unspecified vitamin D deficiency E55.9 Active conf irmed 71809061 Problem 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9 Active confirmed 41486831 Problem Actinic keratosis L57.0 Active confirmed 20 5185429 Problem Primary osteoarthritis involving multiple joints M 15.0 Active confirmed 646072022 Problem Impaired fasting glucose R73.01 Active confirmed 248268244 Problem Partial thickness burn of right thumb, initial encounter T23.211A Active confirmed 5322335 Problem 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 Active confirmed 794500353 Problem Partial thickness burn of chest wall, initial encounter T21.21XA Active confirmed 58107652 Problem Obesity, unspecified E66.9 Active confirmed 851267876 Problem Partial thickness burn of right thumb, subsequent enco unter T23.211D Active confirmed 0034678 Problem Partial thickness burn of chest wall, subsequent encounter T21.21XD Active confirmed 69934316 Problem Calculus of gallbladder without cholecystitis wi thout obstruction K80.20 Active confirmed 46596084 Problem 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 Active confirmed 584466652 Problem Adjustment disorder with depressed mood F43.21 Active confirmed 05836803 Problem Hypocalcemia E83.51 Active confirmed 1912730 Problem Urge incontinence N39.41 Active confirmed 87 742270 Problem Grief F43.20 Active confirmed 452761609 Problem Open-angle glaucoma H40.10X0 Active confirmed 56580766 Problem Insomnia due to other mental disorder F51.05 Ac tive confirmed 85658455 Problem Personal history of malignant neoplasm of thyroid Z85.850 Active confirmed 076177198 Problem Memory changes R41.3 Active confirmed 53785 7006 Problem 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 Active confirmed 702086633 Problem Personal history of tobacco use, presenting hazards to health Z87.891 Active confirmed 2148571408463 Problem Urinary incontinence, unspecified type R32 A ctive confirmed 885129407 Problem 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 53 Active confirmed [id number] ALLERGIES No Known Allergies ENCOUNTERS from 1935 to 2021-06-08 Encounter Location Date Provider Diagnosis [facility] Res[facility] [address] [phone] [place] [address] 16 May, 2021 Evelin Barnard IMMUNIZATIONS Vaccine Route Administration Date [...] Notes Start Da te End Date Status Fish Oil 1000 mg 1 cap(s) Orally Once a day Active Atorvastatin Calcium 80 MG 1 tablet Orally Once a day at lunch for 90 days Active Calcitriol 0.25 MCG 1 capsule Orally Once a day for 90 Active PARoxetine HCl 20 MG 1 tablet in the morning Orally Once a day f or 30 day(s) Active Multivitamin Men 50+ - Orally Ac tive Vitamin D3 Active Xalatan 0.005 % 1 drop into affected eye every evening Ophthalmi c twice daily Active Aspirin 81 MG 1 tablet Orally Once a day for 30 day(s) started on discharge 06/01/21 from [facility] May, Active B-12 2500mcg 1 tablet Orally Once a day for 30 day(s) Active Albuterol Sulfate HFA 108 (90 Base) MCG/ACT as directe d Inhalation every 4 hours as needed Active Ferrous Sulfate 325 (65 Fe) MG 1 tablet Orally Twice a day for 90 Active amLODIPine Besylate 10 MG 1 tablet Orally Once a day for 90 days Active Dorzolamide HCl 2 % 1 drop into affected eye Ophthalmic RIGHT EYE D AILY bid Active Potassium 99 MG 1 tablet Orally Once a day for 30 day(s) Active Lisinopril 20 MG 1 tablet Orally Once a day for 90 days Active Ibuprofen 600 MG 1 tablet with food or milk a s needed Orally Three times a day prn Active Levothyroxine Sodium 150 MCG 1 tablet on an empty stom ach in the morning Orally Once a day Dr. DALEY CHANGED DOSAGE Aug, Active PROCEDURES No Information RESULTS No Results REASON FOR VISIT No Information MEDICAL (GENERAL) HISTORY Type Description Date Medical History MICHAEL, non-compliant with CPAP since about 2017 - August Medical History Asthma/Emphysema. Levi 07/23 04/04 FVC 3.17/FEV1 2.18(non specific flow limitation)-August Medical History thyroid cancer/hypothyroidism- Dr Daley Medical History prostate cancer ([facility]) Medical History hypertension, goal 140/90 Medical History hypocalcemia and hypoparathyroidism- Dr Daley. Last appt 10/05 Medical History hyperlipidemia, goal LDL is < 100 Medical History Fe Def Anemia Hgb 13 11/06 Medical History arthritis Medical History Chronic Rt Shoulder pain- [facility]-Dr Caballero Medical History glaucoma ([place] for [facility] ) Medical History Tigger finger Medical History [...] Hospitalization History surgery related Hospitalization History COVID-19 ([facility]) 09/2020 Goals Section No Information Health Concerns No Information MEDICAL EQUIPMENT No Information MENTAL STATUS No Information FUNCTIONAL STATUS No Information ASSESSMENTS No Information PLAN OF TREATMENT Medication Medication Name Sig Start Date Stop Date Atorvastatin Calcium 80 MG 1 tablet Orally Once a day at lunch f or 90 days Next Appt Details Provider Name:Evelin Brandti, 2021-06-15 02: 30:00 PM, [address] [place] [address], , [place], [address], Provider Name:Efrem Reyna, 2021-05-24 5 09:30:00 AM, [address], , [place], [address], Provider Name:Joe Reynoso, 2021-08-23 9 03:30:00 PM, [address] [place] [address], , [place], [address], Insurance Providers Payer Name Payer Address Payer Phone Insured Name Patient Relati onship to Insured Coverage Start Date Coverage End Date [facility] [address] [facility] [address] MAR[place] BLOOM self MEDICARE BLUE PPO [address] [facility] [address] [facility] [address] MARIO BLOOM self
--- OUTSIDE RECORDS SUMMARY | 2021-08-18 11:26 | CCD | Continuity of Care Document ---
Author Author [facility] [employer] [facility] Organization Unknown Address [address] [place] [address] Phone [phone] Care Team Providers Care Dairy Farmworker Name Role Phone Joe Reynoso MD [facility] [phone] Problems Active Problems Provider Date Postoperative hypothyroidism Larissa La MD Onset: 02/21 Hypocalcemia Larissa La MD Onset: 01/12/2012 Social History Type Date Description Comments Sex Unknown Cigarette Use Former Cigarette Smoker 1 Pack D aily quit in 1999 ETOH Use Denies alcohol use Tobacco Use Start: Unknown End: Unknown Patient is a former smoker Smoking Status Reviewed: 05/26/21 Patient is a former smoker Allergies, Adverse Reactions, Alerts Description No Information Available Medications Active Medications SIG Qnty Indications Ordering Provide r Date Levothyroxine Sodium 150mcg Tablet s 1 tab by mouth every day 90tabs E89.0 Chantale He NP 2018 Calcitriol 0.25mcg Capsules Take One Capsule By Mouth Every Day Maximum Daily Dose = 1 90caps Larissa La MD 06/24/2015 Calcium With Vitamin D 600-800 Tab [...] Available Vital Signs Date Vital Result Comment 05/26/2021 3:27pm BP Systolic 142 mmHg BP Diastolic 70 mmHg Heart Rate 62 /min Height 66 inches 5'6" Weight 201.00 lb BMI (Body Mass Index) 32.4 kg/m2 O2 % BldC Oximetry 98 % 08/03/2020 10:37am BP Systolic 126 mmHg BP Diastolic 80 mmHg Heart Rate 77 /min Body Temperature 96.3 F Height 66 inches 5'6" Weight 203.25 lb BMI (Body Mass Index) 32.8 kg/m2 O2 % BldC Oximetry 98 % Results Test Acquired Date Facility Test Result H/L Range Note Laboratory test finding 06/08/2021 [facility] [address] [place] [address] [phone] - Calcium Level 7.5 mg/dL Low 8.8-10.2 1 Total 25(Oh) Vitamin D 39.4 NG/ML Normal 30.0-100.0 2 1 note:<nlbl:demographic_chang ed> 2 note:<nlbl:demographic_chang ed> Procedures Date Code Description Status 05/26/2021 75706 Office/Outpatient Established Mo d MDM 30-39 Min Completed Medical Devices Description No Information Available Encounters Type Date Location Provider Dx Diagnosis Office Visit 05/26/2021 3:15p DR. Larissa He, N P E89.0 Postprocedural hypothyroidism E83.51 Hypocalcemia Assessments Date Code Description Provider 05/26/2021 E89.0 Postprocedural hypothyroidism Elidia He NP 05/26/2021 E83.51 Hypocalcemia Chantale roberto, COMMUNITY CULTURAL DEVELOPMENT OFFICER Plan of Treatment Future Appointment(s):* 06/11/2021 8:30 am - Chantale He NP at DR. Larissa La 05/26/2021 - Chantale He NP* E89.0 Postprocedural hypothyroidism* Comments:* Dose lowered to Levothyroxine 175mcg dailyLabs done 08/27/19- TSH= 0.596, FT4= 1.65- still overreplaceddose lowered to Levothyroxine 150mcg po qd. Labs done 11/27/2019- TSH= 4.660, FT4= 1.39- will continue same. Labs done 04/02/2020- TSH= 6.780, FT4= 1.43- TSH elevated which may indicate missed doses. Supposed to be on Levothyroxine 150mcg po qdLabs done 07/30/2020- TSH= 17.900, FT4= 1.30Labs done 09/24/2020- TSH= 3.340, FT4= 1.48 Pt was [facility] to [facility] in September for COVIDCurrently Levothyroxine 150 mcg po qd. Labs done 05/17/21- TSH= 5.66- may be missing doses. Pt denies missing any doses. Will recheck in 4 months. * Follow up:* RTO 2 weeks. 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 callie= 9.4,, Vit d= 52Currently Calcum 1250 mg qhs- often missing doses. Calcitriol 0.25 mg 1 tab dinnerLabs done 05/17/21- calcium 7.7- pt denies any sx. Explained importance of not missing doses of calcium .Advised to move calcium to dinnertime. Recheck in 1 week Functional Status Description No Information Available Mental Status Description No Information Available Referrals Description No Information Available
--- OUTSIDE RECORDS SUMMARY | 2021-08-18 11:26 | CCD ---
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 Active confirmed 97393089 Problem Knee pain M25.569 Active confirmed 77389277 Problem Hyperlipidemia E78.5 Active confirmed 81490 004 Problem 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 Active confirmed 240452988 Problem Partial thickness burn of right upper arm, subse quent encounter T22.231D Active confirmed 40794529 Problem 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 Active confirmed 3 2915040 Problem Partial thickness burn of right upper arm, initial enc ounter T22.231A Active confirmed 71412331 Problem Unspecified vitamin D deficiency E55.9 Active conf irmed 52285975 Problem 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9 Active confirmed 75751776 Problem Actinic keratosis L57.0 Active confirmed 20 1591264 Problem Primary osteoarthritis involving multiple joints M 15.0 Active confirmed 963129361 Problem Impaired fasting glucose R73.01 Active confirmed 842913564 Problem Partial thickness burn of right thumb, initial encounter T23.211A Active confirmed 2366985 Problem 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 Active confirmed 769749208 Problem Partial thickness burn of chest wall, initial encounter T21.21XA Active confirmed 42116429 Problem Obesity, unspecified E66.9 Active confirmed 261969448 Problem Partial thickness burn of right thumb, subsequent enco unter T23.211D Active confirmed 5110249 Problem Partial thickness burn of chest wall, subsequent encounter T21.21XD Active confirmed 38307221 Problem Calculus of gallbladder without cholecystitis wi thout obstruction K80.20 Active confirmed 67561625 Problem 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 Active confirmed 825038035 Problem Adjustment disorder with depressed mood F43.21 Active confirmed 98765846 Problem Hypocalcemia E83.51 Active confirmed 2286584 Problem Urge incontinence N39.41 Active confirmed 87 611505 Problem Grief F43.20 Active confirmed 244082361 Problem Open-angle glaucoma H40.10X0 Active confirmed 45459418 Problem Insomnia due to other mental disorder F51.05 Ac tive confirmed 55128520 Problem Personal history of malignant neoplasm of thyroid Z85.850 Active confirmed 678119010 Problem Memory changes R41.3 Active confirmed 39771 7006 Problem 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 Active confirmed 294189099 Problem Personal history of tobacco use, presenting hazards to health Z87.891 Active confirmed 8202440164003 Problem Urinary incontinence, unspecified type R32 A ctive confirmed 404352406 Problem 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 53 Active confirmed [id number] ALLERGIES No Known Allergies ENCOUNTERS from 1935 to 2021-06-21 Encounter Location Date Provider Diagnosis [facility] [address] [facility] [phone] [place] [address] May, Joe Reynoso Essential hypertension I10 ; Rectal polyp K62.1 ; Hypocalcemia E83.51 and 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 IMMUNIZATIONS Vaccine Route Administration Date Status Zoster 50mcg/0.5mL Shingrix SC Subcutaneous Aug 09, 2019 Admi nistered Influenza (High Dose 65 & up) IM Intramuscular Jul 27, 2017 A dministered Pneumococcal Adult 0.5mL Pneumovax 23 IM Intramuscular Aug 05 015 Administered Influenza (High Dose 65 & up) IM Intramuscular Aug 05, 2015 A dministered Zoster 0.65mL Zostavax IM Intramuscular Aug 21, 2012 Administ ered TDAP IM Intramuscular March 13, 2017 Administered [...] history REASON FOR REFERRAL from 1935 to 2021-06-21 Reason urology detected a rectal po lyp, please evaluate and treat Diagnosis 1 Rectal polyp (K62.1) Referral Organization [facility] [place] Referring Provider First Name Joe Referring Provider Last Name Edgardo Referring Provider Specialty Family Medicine Referred Provider Gelacio Tony Referred Provider Specialty Gastroenterology Referral Priority Routine Referral Appointment Date 2021-06-24 General Notes Joe Reynoso MD 05/27/2021 4:58:40 PM > Mr. Bloom is an 85 year old gentleman who saw urology. When they did a rectal exam they noted a rectal polyp. Please evaluate and treat.Danielle Dawson 05/27/2021 5:14:47 PM > Referral faxed VITAL SIGNS Weight 202.0 lbs May, Weight-kg 91.63 kg May, Height 66 in May, BMI 32.60 kg/m2 May, Heart Rate 77 /min May, Respiratory Rate 18 /min May, Temperature 97.3 degrees Fahrenheit May, Oximetry 99 May, Blood pressure systolic 138 mm Hg May, Blood pressure diastolic 76 mm Hg May, MEDICATIONS Medication SIG (Take, Route, Frequency, Duration) Notes Start Da te End Date Status Fish Oil 1000 mg 1 cap(s) Orally Once a day Active PARoxetine HCl 20 MG 1 tablet in the morning Orally Once a day f or 30 day(s) Active Calcitriol 0.25 MCG 1 capsule Orally Once a day for 90 Active Ferrous Sulfate 325 (65 Fe) MG 1 tablet Orally Twice a day for 90 Active amLODIPine Besylate 10 MG 1 tablet Orally Once a day for 90 days Active Aspirin 81 MG 1 tablet Orally Once a day for 30 day(s) started on discharge 06/01/21 from [facility] May, Active Vitamin D3 Active Xalatan 0.005 % 1 drop into affected eye every evening Ophthalmi c twice daily Active Dorzolamide HCl 2 % 1 drop into affected eye Ophthalmic RIGHT EYE D AILY bid Active Albuterol Sulfate HFA 108 (90 Base) MCG/ACT as directe d Inhalation every 4 hours as needed Active Levothyroxine Sodium 150 MCG 1 tablet on an empty stom ach in the morning Orally Once a day Dr. DALEY CHANGED DOSAGE Aug, Active Lisinopril 20 MG 1 tablet Orally Once a day for 90 days Active Potassium 99 MG 1 tablet Orally Once a day for 30 day(s) Active Ibuprofen 600 MG 1 tablet with food or milk a s needed Orally Three times a day prn Active Multivitamin Men 50+ - Orally Ac tive B-12 2500mcg 1 tablet Orally Once a day for 30 day(s) Active Atorvastatin Calcium 80 MG 1 tablet Orally Once a day at lunch for 90 days Active PROCEDURES No Information RESULTS No Results REASON FOR VISIT follow-up BP and labs MEDICAL (GENERAL) HISTORY Type Description Date Medical History MICHAEL, non-compliant with CPAP since about 2017 - August Medical History Asthma/Emphysema. Levi 07/23 04/04 FVC 3.17/FEV1 2.18(non specific flow limitation)-August Medical History thyroid cancer/hypothyroidism- Dr Daley Medical History prostate cancer ([facility]) Medical History hypertension, goal 140/90 Medical History hypocalcemia and hypoparathyroidism- Dr Daley. Last appt 10/05 Medical History hyperlipidemia, goal LDL is < 100 Medical History Fe Def Anemia Hgb 13 11/06 Medical History arthritis Medical History Chronic Rt Shoulder pain- [facility]-Dr Caballero Medical History glaucoma ([place] for [facility] ) Medical History Tigger finger Medical History [...] Hospitalization History surgery related Hospitalization History COVID-19 ([facility]) 09/2020 Goals Section No Information Health Concerns No Information MEDICAL EQUIPMENT No Information MENTAL STATUS No Information FUNCTIONAL STATUS No Information ASSESSMENTS Encounter Date Diagnosis Assessment Notes Treatment Notes Treatm ent Clinical Notes May, Essential hypertension (ICD-10 - I10) His BP is reasonably controlled. Continue current regimen, monitor. May, Rectal polyp (ICD-10 - K62.1) He would like to see Dr. Tony to have this addressed. I sent the referral per his request. May, Hypocalcemia (ICD-10 - E83.51) He has hypocalcemia that may be b/c he is frequently forgetting to take his calcium supplement as well as hypoparathyroidism. He apparently is taking his calcitriol just fine, but falls asleep somewhere else and doesn't take the calcium before he gets in bed. He is going to try to take this earlier in the day so this won't be an issue. Endo will monitor and I will follow along. May, Postsurgical hypothyroidism (ICD-10 - E89.0) Managed through Dr. Daley's office. PLAN OF TREATMENT Treatment Notes Assessment Notes Clinical Notes Essential hypertension His BP is reasona iris controlled. Continue current regimen, monitor. Rectal polyp He would like to see Dr. Tony to have this addressed. I sent the referral per his request. Hypocalcemia He has hypocalcemia that may be b/c he is frequently forgetting to take his calcium supplement as well as hypoparathyroidism. He apparently is taking his calcitriol just fine, but falls asleep somewhere else and doesn't take the calcium before he gets in bed. He is going to try to take this earlier in the day so this won't be an issue. Endo will monitor and I will follow along. Postsurgical hypothyroidism Managed thro [facility] Dr. Daley's office. Referrals Referral Date Details 2021-06-24 2021-06-24, urology detected a rectal polyp, please evaluate and treat, Gelacio Tony Next Appt Details 3 Months Reason:follow-up BP and rectal polyp Provider Name:Joe Reynoso, 2 03:45:00 PM, [address] [place] [address] , [place], [address], Provider Name:Joe Reynoso, 2021-08-23 9 03:30:00 PM, [address] [place] [address], , [place], [address], Follow Up:3 Monthsfollow-up BP and rectal polyp Insurance Providers Payer Name Payer Address Payer Phone Insured Name Patient Relati onship to Insured Coverage Start Date Coverage End Date MEDICARE BLUE PPO [address] [facility] BLUE CROSS [address] [facility] [id number] MARIO BLOOM [address] [place] [address] MARIO BLOOM self
--- OUTSIDE RECORDS SUMMARY | 2021-08-18 11:26 | CCD ---
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 Active confirmed 26144006 Problem Knee pain M25.569 Active confirmed 16337475 Problem Hyperlipidemia E78.5 Active confirmed 93493 004 Problem 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 Active confirmed 249510452 Problem Partial thickness burn of right upper arm, subse quent encounter T22.231D Active confirmed 34324949 Problem 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 Active confirmed 3 9212094 Problem Partial thickness burn of right upper arm, initial enc ounter T22.231A Active confirmed 68246769 Problem Unspecified vitamin D deficiency E55.9 Active conf irmed 57572738 Problem 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9 Active confirmed 92428142 Problem Actinic keratosis L57.0 Active confirmed 20 5459229 Problem Primary osteoarthritis involving multiple joints M 15.0 Active confirmed 566372342 Problem Impaired fasting glucose R73.01 Active confirmed 316946649 Problem Partial thickness burn of right thumb, initial encounter T23.211A Active confirmed 5450040 Problem 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 Active confirmed 932920179 Problem Partial thickness burn of chest wall, initial encounter T21.21XA Active confirmed 63422768 Problem Obesity, unspecified E66.9 Active confirmed 495194624 Problem Partial thickness burn of right thumb, subsequent enco unter T23.211D Active confirmed 1454687 Problem Partial thickness burn of chest wall, subsequent encounter T21.21XD Active confirmed 19649712 Problem Calculus of gallbladder without cholecystitis wi thout obstruction K80.20 Active confirmed 34776387 Problem 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 Active confirmed 125596886 Problem Adjustment disorder with depressed mood F43.21 Active confirmed 94998726 Problem Hypocalcemia E83.51 Active confirmed 9719072 Problem Urge incontinence N39.41 Active confirmed 87 154358 Problem Grief F43.20 Active confirmed 098247669 Problem Open-angle glaucoma H40.10X0 Active confirmed 75021083 Problem Insomnia due to other mental disorder F51.05 Ac tive confirmed 95512731 Problem Personal history of malignant neoplasm of thyroid Z85.850 Active confirmed 978945613 Problem Memory changes R41.3 Active confirmed 68563 7006 Problem 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 DALEY CHANGED DOSAGE Aug, Active Atorvastatin Calcium 80 MG 1 tablet Orally Once a day at lunch Active PARoxetine HCl 20 MG 1 tablet in the morning Orally Once a day f or 30 day(s) Active Multivitamin Men 50+ - Orally Ac tive Vitamin D3 Active Xalatan 0.005 % 1 drop into affected eye every evening Ophthalmi c twice daily Active Aspirin 81 MG 1 tablet Orally Once a day for 30 day(s) started on discharge 06/01/21 from [facility] May, Active Albuterol Sulfate HFA 108 (90 Base) MCG/ACT as directe d Inhalation every 4 hours as needed Active Calcitriol 0.25 MCG 1 capsule Orally Once a day for 90 Active Ferrous Sulfate 325 (65 Fe) MG 1 tablet Orally Twice a day for 90 Active Potassium 99 MG 1 tablet Orally Once a day for 30 day(s) Active Dorzolamide HCl 2 % 1 drop into affected eye Ophthalmic RIGHT EYE D AILY bid Active B-12 2500mcg 1 tablet Orally Once a day for 30 day(s) Active Lisinopril 20 MG 1 tablet Orally Once a day for 90 days Active Ibuprofen 600 MG 1 tablet with food or milk a s needed Orally Three times a day prn Active amLODIPine Besylate 10 MG 1 tablet Orally Once a day for 90 days Active PROCEDURES No Information RESULTS No Results REASON FOR VISIT [facility] d/c 06/01- Cerebral Vascular Accident MEDICAL (GENERAL) HISTORY Type Description Date Medical History MICHAEL, non-compliant with CPAP since about 2017 - August Medical History Asthma/Emphysema. [place] 07/23 04/04 FVC 3.17/FEV1 2.18(non specific flow limitation)-August Medical History thyroid cancer/hypothyroidism- Dr Daley Medical History prostate cancer ([facility]) Medical History hypertension, goal 140/90 Medical History hypocalcemia and hypoparathyroidism- Dr Daley. Last appt 10/05 Medical History hyperlipidemia, goal LDL is < 100 Medical History Fe Def Anemia Hgb 13 11/06 Medical History arthritis Medical History Chronic Rt Shoulder pain- [facility]-Dr Caballero Medical History glaucoma ([place] for [facility] ) Medical History Tigger finger Medical History [...] Hospitalization History surgery related Hospitalization History COVID-19 ([facility]) 09/2020 Goals Section No Information Health Concerns No Information MEDICAL EQUIPMENT No Information MENTAL STATUS No Information FUNCTIONAL STATUS No Information ASSESSMENTS Encounter Date Diagnosis Assessment Notes Treatment Notes Treatm ent Clinical Notes May, Other Discussion with patient about recent dischage from [facility] on 06/01/21. Patient reports that he is doing "well". Patient reports he walks 3 miles a day, lives with his son, has no ambulation devices, and has no Home Care Services. Medicaion Reconcilation completed with patient. Appt reviewed with his PCP. Denies any further questions or concerns with service writer advisor at this time. PLAN OF TREATMENT Next Appt Details Provider Name:Evelin Brandti, 2021-06-15 02: 30:00 PM, [address] [place] [address], , [place], [address], Provider Name:Efrem Reyna, 2021-05-24 5 09:30:00 AM, [address], , [place], [address], Provider Name:Joe Reynoso, 2021-08-23 9 03:30:00 PM, [address] [place] [address] , [place], [address], Insurance Providers Payer Name Payer Address Payer Phone Insured Name Patient Relati onship to Insured Coverage Start Date Coverage End Date MEDICARE BLUE PPO 306 [employer] BLUE CROSS [address] [facility] [id number] [address] BLOOM [facility] [address] [facility] [id number] MARIO BLOOM self
--- OUTSIDE RECORDS SUMMARY | 2021-08-18 11:26 | CCD | Continuity of Care Document ---
Author Author [facility] Organization Unknown Address [address] [place] [address] Phone [phone] Care Team Providers Care Potato Peeler Name Role Phone Joe Reynoso MD [facility] [phone] Problems Active Problems Provider Date Postoperative hypothyroidism [...] H/L Range Note Laboratory test finding 06/08/2021 [facility] [address] [place] [address] (315)- - Calcium Level 7.5 mg/dL Low 8.8-10.2 1 Total 25(Oh) Vitamin D 39.4 NG/ML Normal 30.0-100.0 2 1 note:<nlbl:demographic_chang ed> 2 note:<nlbl:demographic_[facility] ed> Procedures Date Code Description Status 06/11/2021 94542 Office/Outpatient Established Mo d MDM 30-39 Min Completed 05/26/2021 10141 Office/Outpatient Established Mo d MDM 30-39 Min Completed Medical Devices Description No Information Available Encounters Type Date Location Provider Dx Diagnosis Office Visit 06/11/2021 8:30a DR. Larissa He, N P E83.51 Hypocalcemia Office Visit 05/26/2021 3:15p DR. Larissa He, N P E89.0 Postprocedural hypothyroidism E83.51 Hypocalcemia Assessments Date Code Description Provider 06/11/2021 E83.51 Hypocalcemia Chantale roberto, SENIOR FOREMAN 05/26/2021 E89.0 Postprocedural hypothyroidism Elidia He NP 05/26/2021 E83.51 Hypocalcemia Chantale roberto, SENIOR FOREMAN Plan of Treatment 06/11/2021 - Chantale He NP* E83.51 Hypocalcemia* New Labs:* Calcium Serum, Scheduled: 06/25/21 * BMP W/Egfr, Scheduled: 09/22/21 * Comments:* He [...]
--- OUTSIDE RECORDS SUMMARY | 2021-08-18 11:26 | CCD | Continuity of Care Document ---
Author Author [facility] M[facility] Organization Unknown Address [address] [place] [address] Phone [phone] Care Team Providers Care Continuous Pickling Line Pickler Helper Name Role Phone Joe Reynoso MD [facility] [phone] Problems Active Problems Provider Date Screening for malignant neoplasm of colon Gelacio almendarez M.D. Onset: 06/24/2021 Social History Type Date Description Comments Sex Unknown ETOH Use Denies alcohol use Tobacco Use Start: Unknown End: Unknown Patient is a former smoker QUIT 25 YEARS AGO Allergies, Adverse Reactions, Alerts Description No Known Drug Allergies Medications Active Medications SIG Qnty Indications Ordering Provide r Date Sutab [id number] Tablets as directed 1box Gelacio Tony M.D. 06/24/2021 Ferrous Sulfate 325(65Fe) mg Tablets Unknown Azithromycin 500mg Tablets Take One Tablet By Mouth Every Day For 3 Days Unknown Prednisone 20mg Tablets Take 1 Tablet By Mouth Twice Daily For 4 Days Unknown N56-Otxehz 1mg Chewtabs Unknown D3 High Potency 125mcg (5000 Ut) C apsules Unknown Potassium Citrate 99mg Capsules Unknown One-A-Day Mens 50+ 50+ Tablets Unknown Levothyroxine Sodium 150mcg Capsules Unknown Fish Oil 1000mg Capsules DR Unknown Calcium 250mg Capsules Unknown Lisinopril 20mg Tablets Take One Tablet By Mouth Every Day Unknown Latanoprost 0.005% Solution Instill 1 Drop Into The Right Eye AT Night Unknown Amlodipine Besylate 10mg Tablets Take One Tablet By Mouth Every Day Unknown Dorzolamide HCL/Timolol Maleate 22.3-6.8mg/ml Solution Instill One Drop Into The Right Eye Two Times A Day Unknown Calcitriol 0.25mcg Capsules Take One Capsule By Mouth Twice A Day With Breakfast And Dinner Unknown Atorvastatin Calcium 80mg Tablets Take One Tablet By Mouth Every Day AT Lunch Unknown Immunizations Description No Information Available Vital Signs Date Vital Result Comment 06/24/2021 9:42am Height 66 inches 5'6" Weight 200.00 lb BP Systolic 122 mmHg BP Diastolic 69 mmHg Heart Rate 71 /min BMI (Body Mass Index) 32.3 kg/m2 Weight 90.720 kg Body Temperature 96.4 F Results Description No Information Available Procedures Date Code Description Status 06/24/2021 85367 Office/Outpatient New Low MDM 30 -44 Minutes Completed Medical Devices Description No Information Available Encounters Type Date Location Provider Dx Diagnosis Office Visit 06/24/2021 9:15a Main Office Gelacio Tony M.D. Z 12.11 Encounter for screening for malignant neoplasm of colon Assessments Date Code Description Provider 06/24/2021 Z12.11 Screening for malignant neoplasm of colon Gelacio Tony M.D. Plan of Treatment Future Appointment(s):* 08/18/2021 12:45 pm - Gelacio Tony M.D. at Main Office 06/24/2021 - Gelacio Tony M.D.* Z12.11 Screening for malignant neoplasm of colon* Comments:* 85 yo wm who presents for a screening colonoscopy. Last scope was over 20 yrs ago. No c/o abdominal pain, weight loss, change in bowel habits, or rectal bleeding. No family h/o colon cancer. No h/o chest pain, or sob. Plan:1.Schedule patient for a colonoscopy.2.Informed consent given to the patient.3.Pt. advised to stop aspirin,plavix, and anticoagulants at least 3 to 7 days prior to the procedure. Functional Status Description No Information Available Mental Status Description No Information Available Referrals Description No Information Available
--- OUTSIDE RECORDS SUMMARY | 2021-08-18 11:26 | CCD | Continuity of Care Document ---
Author Author Bebeto HE KNITTING MACHINE OPERATOR Organization Unknown Address [address] [place] [address] Phone [phone] Care Team Providers Care Forms Designer Name Role Phone Joe Reynoso MD [facility] [place] [phone] Problems Active Problems Provider Date Postoperative hypothyroidism [...] O2 % BldC Oximetry 98 % Results Description No Information Available Procedures Date Code Description Status 05/26/2021 34141 Office/Outpatient Established Mo d MDM 30-39 Min Completed Medical Devices Description No Information Available Encounters Type Date Location Provider Dx Diagnosis Office Visit 05/26/2021 3:15p DR. Larissa He, Mehul P E89.0 Postprocedural hypothyroidism E83.51 Hypocalcemia Assessments Date Code Description Provider 05/26/2021 E89.0 Postprocedural hypothyroidism Elidia He NP 05/26/2021 E83.51 Hypocalcemia hCantale roberto NP Plan of Treatment Future Appointment(s):* 06/11/2021 8:30 [...] 3.340, FT4= 1.48 Pt was admitted to [facility] in September for COVIDCurrently Levothyroxine 150 mcg po qd. Labs done 05/17/21- TSH= 5.66- may be missing doses. Pt denies missing any doses. Will recheck in 4 months. * Follow up:* RTO 2 weeks. JL * E83.51 Hypocalcemia* New Labs:* Calcium Level, Scheduled: 06/03/21 * Vitamin D 25-Hydroxy, Scheduled: 06/03/21 * Comments:* He has chronic hypocalcemia from [...]
--- OUTSIDE RECORDS SUMMARY | 2021-08-18 11:26 | CCD | Continuity of Care Document ---
Author Author Bebeto HE SUPERVISING ARCHITECT Organization Unknown Address [address] [place] [address] Phone [phone] Care Team Providers Care Bunk House Worker Name Role Phone Joe Reynoso MD [facility] [phone] Problems Active Problems Provider Date Postoperative hypothyroidism [...] Available Procedures Date Code Description Status 05/26/2021 00699 Office/Outpatient Established Mo d MDM 30-39 Min [...] 3.340, FT4= 1.48 Pt was admitted to [facility] in September for COVIDCurrently Levothyroxine 150 [...]
--- OUTSIDE RECORDS SUMMARY | 2021-08-18 11:26 | CCD ---
Author Author Paulo Inman MD [facility] Organization Paulo Inman MD [facility] Address [address] [place] [address] Phone Care Team Providers Care Manager Of Regulatory Affairs Name Role Phone Storm [place], REINALDO, Paulo Montes Unavailable [phone] Joe Reynoso MD PP [phone] Reason for Referral No Reason for Referral [...] Nuclear senile cataract 6 Month Follow-Up with Pualo Young MD, FACS 04/14/2020 Primary open-angle glaucoma [...] (continue as prescribed) Latanoprost 0.005% Ophthalmic Solution 06/29/2021 - 06/24/20 22 Provider: Paulo Inman MD, FACS Diagnosis: Primary open-angle g laucoma, bilateral, mild stage One drop to the right eye at night Dorzolamide HCl-Timolol Mal 22.3-6.8 MG/ML Ophthalmic Soluti on 08/26/2020 Provider: Paulo Inman MD, FACS Diagnosis: Primary open-angle g laucoma, bilateral, mild stage One drop to the right eye twice a day Levothyroxine Sodium 200 MCG Tablet 12/22/2015 Prov ider: Diagnosis: Iron 28 MG Tablet 10/07/2015 Provider: Diagnosis: Klor-Con M20 20 MEQ Tablet, controlled-release 10/07/2015 Provider: Diagnosis: Calcitriol 0.25 MCG Capsule, conventional 10/07/2015 Provider: Diagnosis: Calcium Citrate + D 315-250 MG-UNIT Tablet 03/02/2015 Provider: Diagnosis: 6 Tabs a day PA Vitamin D-3 25 MCG (1000 UT) OR TABS 12/05/2013 Provider: Diagnosis: Ferrous Sulfate 325 (65 Fe) MG OR TABS 12/05/2013 P rovider: Diagnosis: Atorvastatin Calcium 80 MG OR TABS 12/05/2013 Provi can: Diagnosis: EQL Fish Oil 1200 MG OR CAPS 05/30/2013 Provider: Diagnosis: RA Vitamin B12 2000 MCG OR TBCR 05/30/2013 Provider : Diagnosis: Aspirin 81 MG OR TABS 05/30/2013 Provider: Diagnosis: Potassium Chloride Melva ER 10 MEQ OR TBCR 05/30/2013 Provider: Diagnosis: Lisinopril-hydroCHLOROthiazide 20-25 MG TABS 05/30/2013 Provider: Diagnosis: Past Medications on file Latanoprost 0.005% Ophthalmic Solution 08/26/2020 - 06/29/20 [...] Dorzolamide HCl-Timolol Mal 22.3-6.8 MG/ML Solution 04/28/20 - 12/09/2016 Provider: Paulo Inman MD, FACS [...] Mal 22.3-6.8 MG/ML OP SOLN 4 - 12/06/2013 Provider: Paulo Inman MD, FACS [...] - 08/2015 Provider: Diagnosis: 6 per day Dorzolamide HCl-Timolol Mal 22.3-6.8 MG/ML OP SOLN - 12/05/2013 Provider: Diagnosis: Latanoprost 0.005% OP SOLN 05/30/2013 - 12/05/2013 Provider: Diagnosis: QHS OD Simvastatin 40 MG OR TABS 05/30/2013 - 12/22/2015 Provider: Diagnosis: Levothyroxine Sodium 75 MCG OR TABS 05/30/2013 - 12/22/2015 Provider: Diagnosis: Calcium Citrate + D 315-250 MG-UNIT OR TABS 05/30/2013 - Provider: Diagnosis: 6 per day Medications Administered Includes: Administered Medications in patient's chartNo Administered Medications Recorded Vital Signs Includes: Vital Signs from 06/30/2020 through 06/30/2021No Vital Signs Recorded For Specified Dates Results Includes: Results from 06/30/2020 through 06/30/2021No Results Recorded For Specified Dates History of Present Illness History of Present Illness not supported for this document typeNo History of Present Illness Recorded Social History Description Last Updated Tobacco non-user 02/03/2021 No consumption of alcohol 02/03/2021 No tobacco use 02/03/2021 Not using drugs 02/03/2021 Smoking status : Former smoker 02/03/2021 Previous smoking history 05/30/2013 Procedures and Surgical History Includes: Procedures from 06/30/2020 through 06/30/2021 Procedures Code Diagnosis Performing Provider Service Location Service Date Intermediate Eye Exam Established Patient 97896 Primary open-angle glaucoma, bilateral, mild stage, Hypertensive retinopathy, bilateral, Essential (primary) hypertension, Personal history of nicotine dependence Paulo Inman MD, REINALDO Inman MD [facility] 02/03/2021 Comprehensive eye exam established patient (Signi/Sep Eval. & Man.) 17891 Primary open-angle glaucoma, bilateral, mild stage, Age-related cataract, morgagnian type, left eye, Hypertensive retinopathy, bilateral, Essential (primary) hypertension Paulo Inman MD, REINALDO Inman MD [facility] 08/26/2020 Scodi, optic nerve with interpretation a nd report (WAIVER OF LIABILITY ON FILE (ABN)) 35703 Primary open-angle glaucoma, bilateral, mild stage Paulo Rojas MD, REINALDO Inman MD [facility] 08/26/2020 Surgical History Last Updated Surgical [...] AllergiesNo Known Allergies Encounters Includes: Encounters from 06/30/2020 through 06/30/2021 Encounter Provider Location Date Check-In Time Check-Out Time D iagnosis Rx Refills/Changes Paulo Inman MD, FACS 06/29/2021 02/03/2021 7:53AM 02/03/2021 11:59PM 5 Month Follow-Up Paulo Inman MD, FACS Paulo Inman MD [facility] 02/03/2021 9:33AM 9:59AM Glaucoma Open-angle Primary, History of Nicotine Dependence, Essential Hypertension, Retinopathy Hypertensive, Cataract Senile Cortical, Cataract Senile Nuclear, Cataract Senile Hypermature 5 Month Follow-Up and Testing Paulo Inman MD, FACS Melanie Inman MD [facility] 08/26/2020 8:43AM 10:02AM Glaucoma Open-an gle Primary, History of Nicotine Dependence, Essential Hypertension, Retinopathy Hypertensive, Cataract Senile Cortical, Cataract Senile Nuclear, Cataract Senile Hypermature Insurance Includes: Active Insurance Policies Plan Name Member ID Group # Subscriber Relationship Effective Da eliel 1 - Medicare Part B [facility] ([facility]) [id number] Bebeto Samano Self 2 - [facility] [id number] Bebeto Samano Self Advance Directives Includes: Current Advance DirectivesNo Advance Directives Recorded Health Concerns Includes: Active Health ConcernsNo Active Health Concerns Recorded Goals Includes: Active GoalsNo Active Goals Recorded Interventions Includes: Interventions for active GoalsNo Interventions Recorded Evaluations & Outcomes Includes: Evaluations & Outcomes for active GoalsNo Outcomes Recorded
--- OUTSIDE RECORDS SUMMARY | 2021-08-18 11:26 | CCD ---
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 Active confirmed 14314244 Problem Knee pain M25.569 Active confirmed 53160140 Problem Hyperlipidemia E78.5 Active confirmed 44538 004 Problem 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 Active confirmed 822728331 Problem Partial thickness burn of right upper arm, subse quent encounter T22.231D Active confirmed 78897263 Problem 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 Active confirmed 3 2697375 Problem Partial thickness burn of right upper arm, initial enc ounter T22.231A Active confirmed 43718059 Problem Unspecified vitamin D deficiency E55.9 Active conf irmed 83003604 Problem 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9 Active confirmed 83055303 Problem Actinic keratosis L57.0 Active confirmed 20 5653000 Problem Primary osteoarthritis involving multiple joints M 15.0 Active confirmed 088183655 Problem Impaired fasting glucose R73.01 Active confirmed 067883366 Problem Partial thickness burn of right thumb, initial encounter T23.211A Active confirmed 8829765 Problem 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 Active confirmed 683297040 Problem Partial thickness burn of chest wall, initial encounter T21.21XA Active confirmed 17430226 Problem Obesity, unspecified E66.9 Active confirmed 344738743 Problem Partial thickness burn of right thumb, subsequent enco unter T23.211D Active confirmed 6821102 Problem Partial thickness burn of chest wall, subsequent encounter T21.21XD Active confirmed 06160080 Problem Calculus of gallbladder without cholecystitis wi thout obstruction K80.20 Active confirmed 07450831 Problem 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 Active confirmed 494460086 Problem Adjustment disorder with depressed mood F43.21 Active confirmed 63405564 Problem Hypocalcemia E83.51 Active confirmed 2774417 Problem Urge incontinence N39.41 Active confirmed 87 484825 Problem Grief F43.20 Active confirmed 501002834 Problem Open-angle glaucoma H40.10X0 Active confirmed 76429519 Problem Insomnia due to other mental disorder F51.05 Ac tive confirmed 04871707 Problem Personal history of malignant neoplasm of thyroid Z85.850 Active confirmed 543500737 Problem Memory changes R41.3 Active confirmed 67558 7006 Problem 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 Active confirmed 113849094 Problem Personal history of tobacco use, presenting hazards to health Z87.891 Active confirmed 9185148052420 Problem Urinary incontinence, unspecified type R32 A ctive confirmed 332723101 Problem 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 53 Active confirmed 2785345502519 ALLERGIES No Known Allergies ENCOUNTERS from 1937 to 2021-07-01 Encounter Location Date Provider Diagnosis [facility] [address] [phone] [place] [address] May, Efrem Reyna Erectile dysfunction following radiation therapy N52.35 ; Urge incontinence N39.41 and History of prostate cancer Z85.46 IMMUNIZATIONS Vaccine Route Administration Date Status Zoster 50mcg/0.5mL Shingrix SC Subcutaneous Aug 09, 2019 Admi nistered Influenza (High Dose 65 & up) IM Intramuscular Jul 27, 2017 A dministered Influenza (High Dose 65 & up) IM Intramuscular Aug 05, 2015 A dministered Zoster 0.65mL Zostavax IM Intramuscular Aug 21, 2012 Administ ered Pneumococcal Adult 0.5mL Pneumovax 23 IM Intramuscular Aug 05, 015 Administered TDAP IM Intramuscular March 13, [...] REASON FOR REFERRAL No Information VITAL SIGNS Weight 202 lbs May, Weight-kg 91.63 kg May, Height 66 in May, BMI 32.60 kg/m2 May, Heart Rate 66 /min May, Respiratory Rate 17 /min May, Temperature 95.2 degrees Fahrenheit May, Oximetry 96 May, Blood pressure systolic 131 mm Hg May, Blood pressure diastolic 71 mm Hg May, MEDICATIONS Medication SIG (Take, [...] day(s) started on discharge 06/01/21 from [facility] May, Active Calcitriol 0.25 MCG 1 capsule [...] Information RESULTS No Results REASON FOR VISIT 1 mo f/u medication review MEDICAL (GENERAL) HISTORY Type Description Date Medical History MICHAEL, non-compliant with CPAP since about 2017 - August Medical History Asthma/Emphysema. Levi 07/23 04/04 FVC 3.17/FEV1 2.18(non specific flow limitation)-August Medical History thyroid cancer/hypothyroidism- Dr Daley Medical History prostate cancer ([facility]) Medical History hypertension, goal 140/90 Medical History hypocalcemia and hypoparathyroidism- Dr Daley. Last appt 10/05 Medical History hyperlipidemia, goal LDL is < 100 Medical History Fe Def Anemia Hgb 13 11/06 Medical History arthritis Medical History Chronic Rt Shoulder pain- [facility]-Dr Caballero Medical History glaucoma ([place] for [facility] ) Medical History Tigger finger Medical History [...] History surgery related Hospitalization History COVID-19 ([facility]) 09/2020 Hospitalization History B/P 05/2021 Goals Section No Information Health Concerns No Information MEDICAL EQUIPMENT No Information MENTAL STATUS No Information FUNCTIONAL STATUS No Information ASSESSMENTS Encounter Date Diagnosis Assessment Notes Treatment Notes Treatm ent Clinical Notes May, Erectile dysfunction following radiation therapy (ICD-10 - N52.35) May, Urge incontinence (ICD-10 - N39.41) May, History of prostate cancer (ICD-10 - Z85.46) PLAN OF TREATMENT Next Appt Details pt to call office after setting up acct with [employer] Reason:ed, h/o prostate ca, urge incont Provider Name:Joe Reynoso, 2021-08-23 9 03:30:00 PM, [address] [facility], , [place], [address], Follow Up:pt to call office after setting up acct with Log[employer], h/o prostate ca, urge incont Insurance Providers Payer Name Payer Address Payer Phone Insured Name Patient Relati onship to Insured Coverage Start Date Coverage End Date MEDICARE BLUE PPO [address] [facility] BLUE CROSS [address] [place] [address] [address] [address] [facility] [address] [place] [employer] self
--- OUTSIDE RECORDS SUMMARY | 2021-08-18 11:26 | CCD ---
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 Active confirmed 22227634 Problem Knee pain M25.569 Active confirmed 38254866 Problem Hyperlipidemia E78.5 Active confirmed 33299 004 Problem 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 Active confirmed 707044583 Problem Partial thickness burn of right upper arm, subse quent encounter T22.231D Active confirmed 63789922 Problem 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 Active confirmed 3 4138633 Problem Partial thickness burn of right upper arm, initial enc ounter T22.231A Active confirmed 23978425 Problem Unspecified vitamin D deficiency E55.9 Active conf irmed 33951378 Problem 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9 Active confirmed 03994625 Problem Actinic keratosis L57.0 Active confirmed 20 3065650 Problem Primary osteoarthritis involving multiple joints M 15.0 Active confirmed 109430236 Problem Impaired fasting glucose R73.01 Active confirmed 771118569 Problem Partial thickness burn of right thumb, initial encounter T23.211A Active confirmed 4788323 Problem 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 Active confirmed 568671246 Problem Partial thickness burn of chest wall, initial encounter T21.21XA Active confirmed 15702811 Problem Obesity, unspecified E66.9 Active confirmed 078033435 Problem Partial thickness burn of right thumb, subsequent enco unter T23.211D Active confirmed 2365793 Problem Partial thickness burn of chest wall, subsequent encounter T21.21XD Active confirmed 43962057 Problem Calculus of gallbladder without cholecystitis wi thout obstruction K80.20 Active confirmed 75653747 Problem 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 Active confirmed 670145051 Problem Adjustment disorder with depressed mood F43.21 Active confirmed 08265551 Problem Hypocalcemia E83.51 Active confirmed 1198367 Problem Urge incontinence N39.41 Active confirmed 87 307829 Problem Grief F43.20 Active confirmed 817064559 Problem Open-angle glaucoma H40.10X0 Active confirmed 83843939 Problem Insomnia due to other mental disorder F51.05 Ac tive confirmed 85904745 Problem Personal history of malignant neoplasm of thyroid Z85.850 Active confirmed 059194310 Problem Memory changes R41.3 Active confirmed 75644 7006 Problem 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 Active confirmed 935843654 Problem Personal history of tobacco use, presenting hazards to health Z87.891 Active confirmed 2058165532928 Problem Urinary incontinence, unspecified type R32 A ctive confirmed 568436340 Problem 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 53 Active confirmed 1088575031038 ALLERGIES No Known Allergies ENCOUNTERS from 1937 to 2021-05-25 Encounter Location Date Provider Diagnosis [facility] [place] [address] [facility] [phone] [place] [address] Apr, Evelin Barnard Essential hypertension I10 IMMUNIZATIONS Vaccine Route Administration Date Status Zoster [...] AA in Business Audit Question Answer Notes Interpretation: Alcohol Education Total Score: 0 Sexual Hx: Question Answer Notes Had sex [...] Notes Start Da te End Date Status Levothyroxine Sodium 150 MCG 1 tablet on an empty stom ach in the morning Orally Once a day Aug, Not-Taking Atorvastatin Calcium 80 MG 1 tablet Orally Once a day for 30 day(s) Active Dorzolamide HCl 2 % 1 drop into affected eye Ophthalmic RIGHT EYE LIZ LY Active Ferrous Sulfate 325 (65 Fe) MG 1 tablet Orally Twice a day for 90 Active Potassium 99 MG 1 tablet Orally Once a day for 30 day(s) Not-Taking Prednisone 1 tab Oral for 14 days Ac tive Multivitamin Men 50+ - Orally Ac tive May Have 1 tab potassium 99 mgs Daily/ OTC Active Lipitor 80 MG 1 tablet Orally qhs for 90 days Not-Taking Lisinopril 20 MG 1 tablet Orally Once a day for 90 days Active Sildenafil Citrate 50 MG 1 tablet as needed Orally be fore sexual activity for 30 day(s) Mar, Not-Taking Calcium + D 600 mg 1 tab Orally twice daily Active Albuterol Sulfate HFA 108 (90 Base) MCG/ACT as directe d Inhalation every 4 hours as needed Active Ibuprofen 600 MG 1 tablet with food or milk a s needed Orally Three times a day prn Not-Taking B-12 2500mcg 1 tablet Orally Once a day for 30 day(s) Active Calcitriol 0.25 MCG 1 capsule Orally Once a day for 90 Active Vitamin D3 Active amLODIPine Besylate 10 MG 1 tablet Orally Once a day for 90 days Active Xalatan 0.005 % 1 drop into affected eye every evening Ophthalmi c twice daily Active Fish Oil 1000 mg 1 cap(s) Orally Once a day Active PROCEDURES No Information RESULTS No Results REASON FOR VISIT refills MEDICAL (GENERAL) HISTORY Type Description Date Medical History MICHAEL, non-compliant with CPAP since about 2017 - August Medical History Asthma/Emphysema. Levi 07/23 04/04 FVC 3.17/FEV1 2.18(non specific flow limitation)-August Medical History thyroid cancer/hypothyroidism- Dr La Medical History prostate cancer ([facility]) Medical History hypertension, goal 140/90 Medical History hypocalcemia and hypoparathyroidism- Dr La. Last appt 10/05 Medical History hyperlipidemia, goal LDL is < 100 Medical History Fe Def Anemia Hgb 13 11/06 Medical History arthritis Medical History Chronic Rt Shoulder pain- [facility]-Dr Caballero Medical History glaucoma ([place] for [facility] ) Medical History Tigger finger [...] Hospitalization History surgery related Hospitalization History COVID-19 ([facility]) 09/2020 Goals Section No Information Health Concerns No Information MEDICAL EQUIPMENT No Information MENTAL STATUS No Information FUNCTIONAL STATUS No Information ASSESSMENTS Encounter Date Diagnosis Assessment Notes Treatment Notes Treatm ent Clinical Notes Apr, Essential hypertension (ICD-10 - I10) PLAN OF TREATMENT Medication Medication Name Sig Start Date Stop Date Lisinopril 20 MG 1 tablet Orally Once a day for 90 days amLODIPine Besylate 10 MG 1 tablet Orally Once a day for 90 days Next Appt Details Provider Name:Joe Reynoso, 5 03:45:00 PM, [address] [facility], , [place], [address], Provider Name:Efrem Reyna, 2021-05-24 5 09:30:00 AM, [address], , [place], [address], Insurance Providers Payer Name Payer Address Payer Phone Insured Name Patient Relati onship to Insured Coverage Start Date Coverage End Date MEDICARE BLUE PPO 306 [employer] [address]UE CROSS [address] [facility] [id number] [address] [place] [address] [address] [place] [address] [place] B[address]
--- OUTSIDE RECORDS SUMMARY | 2021-08-18 11:26 | CCD | Continuity of Care Document ---
Author Author Bebeto HE SENIOR COUNSEL Organization Unknown Address [address] [place] [id number] Phone [phone] Care Team Providers Care Circuit Court Clerk Name Role Phone Joe Reynoso MD [facility] [phone] Problems Active Problems Provider Date Postoperative hypothyroidism [...] H/L Range Note Laboratory test finding 06/08/2021 [facility] [address] [place] [address] [phone] Calcium Level 7.5 mg/dL Low 8.8-10.2 1 Total 25(Oh) Vitamin D 39.4 NG/ML Normal 30.0-100.0 2 1 note:<nlbl:demographic_chang ed> 2 note:<nlbl:demographic_[facility] ed> Procedures Date Code Description Status 06/11/2021 95100 Office/Outpatient Established Mo d MDM 30-39 Min Completed 05/26/2021 84970 Office/Outpatient Established Mo d MDM 30-39 Min Completed Medical Devices Description No Information Available Encounters Type Date Location Provider Dx Diagnosis Office Visit 06/11/2021 8:30a DR. Larissa He, N P E83.51 Hypocalcemia Office Visit 05/26/2021 3:15p DR. Larissa He, N P E89.0 Postprocedural hypothyroidism E83.51 Hypocalcemia Assessments Date Code Description Provider 06/11/2021 E83.51 Hypocalcemia Chantale roberto, SENIOR COUNSEL 05/26/2021 E89.0 Postprocedural hypothyroidism Elidia He NP 05/26/2021 E83.51 Hypocalcemia Chantale roberto, SENIOR COUNSEL Plan of Treatment Future Appointment(s):* 10/11/2021 8:45 am - Larissa La MD at DR. Larissa La 06/11/2021 - Chantale He, RAYNE* E83.51 Hypocalcemia* New Labs:* Calcium Serum, Scheduled: [...]
--- OUTSIDE RECORDS SUMMARY | 2021-08-18 11:27 | CCD ---
Author Author [facility] Organization [facility] Address Unknown Phone Unavailable Care Team Providers Care Quantitative Manager Name Role Phone Yaneth Tony MD Unavailable Unavailable Yaneth Tony MD Unavailable Unavailable Yaneth Tony MD Unavailable Unavailable Yaneth Tony MD Unavailable Unavailable Yaneth Tony MD Unavailable Unavailable Yaneth Tony MD Unavailable Unavailable Yaneth Tony MD Unavailable Unavailable Yaneth Tony MD Unavailable Unavailable Yaneth Tony MD Unavailable Unavailable Yaneth Tony MD Unavailable Unavailable Yaneth Tony MD Unavailable Unavailable Yaneth Tony MD Unavailable Unavailable Yaneth Tony MD Unavailable Unavailable Yaneth Tnoy MD Unavailable Unavailable Yaneth Tony MD Unavailable Unavailable Yaneth Tony MD Unavailable Unavailable Yaneth Tony MD Unavailable Unavailable Yaneth Tony MD Unavailable Unavailable Yaneth Tony MD Unavailable Unavailable Yaneth Tony MD Unavailable Unavailable Cecily, S Gelacio MD Unavailable Unavailable Cecily, S Gelacio MD Unavailable Unavailable Cecily, S Gelacio MD Unavailable Unavailable Cecily, S Gelacio MD Unavailable Unavailable Cecily, S Gelacio MD Unavailable Unavailable Cecily, S Gelacio MD Unavailable Unavailable Ceicly, S Gelacio MD Unavailable Unavailable Cecily, S Gelacio MD Unavailable Unavailable Cecily, S Gelacio MD Unavailable Unavailable Cecily, S Gelacio MD Unavailable Unavailable Cecily, S Gelacio MD Unavailable Unavailable Cecily, S Gelacio MD Unavailable Unavailable Cecily, S Gelacio MD Unavailable Unavailable Cecily, S Gelacio MD Unavailable Unavailable Cecily, S Gelacio MD Unavailable Unavailable Cecily, S Gelacio MD Unavailable Unavailable Cecily, S Gelacio MD Unavailable Unavailable Cecily, S Gelacio MD Unavailable Unavailable Cecily, S Gelacio MD Unavailable Unavailable Cecily, S Gelacio MD Unavailable Unavailable Cecily, S Gelacio MD Unavailable Unavailable Cecily, S Gelacio MD Unavailable Unavailable Cecily, S Gelacio MD Unavailable Unavailable Cecily, S Gelacio MD Unavailable Unavailable Cecily, S Gelacio MD Unavailable Unavailable Cecily, S Gelacio MD Unavailable Unavailable Cecily, S Gelacio MD Unavailable Unavailable Cecily, S Gelacio MD Unavailable Unavailable Cecily, S Gelacio MD Unavailable Unavailable Cecily, S Gelacio MD Unavailable Unavailable LETTIERE, A BARON PA Unavailable Unavailable LETTIERE, A BARON PA Unavailable Unavailable LETTIERE, A BARON PA Unavailable Unavailable LETTIERE, A BARON PA Unavailable Unavailable LETTIERE, A BARON PA Unavailable Unavailable LETTIERE, A BARON PA Unavailable Unavailable LETTIERE, A BARON PA Unavailable Unavailable LETTIERE, A BARON PA Unavailable Unavailable LETTIERE, A BARON PA Unavailable Unavailable LETTIERE, A BARON PA Unavailable Unavailable LETTIERE, A BARON PA Unavailable Unavailable LETTIERE, A BARON PA Unavailable Unavailable LETTIERE, A BARON PA Unavailable Unavailable LETTIERE, A BARON PA Unavailable Unavailable LETTIERE, A BARON PA Unavailable Unavailable LETTIERE, A BARON PA Unavailable Unavailable LETTIERE, A BARON PA Unavailable Unavailable LETTIERE, A BARON PA Unavailable Unavailable LETTIERE, A BARON PA Unavailable Unavailable LETTIERE, A BARON PA Unavailable Unavailable LETTIERE, A BARON PA Unavailable Unavailable LETTIERE, A BARON PA Unavailable Unavailable LETTIERE, A BARON PA Unavailable Unavailable LETTIERE, A BARON PA Unavailable Unavailable LETTIERE, A BARON PA Unavailable Unavailable LETTIERE, A BARON PA Unavailable Unavailable LETTIERE, A BARON PA Unavailable Unavailable LETTIERE, A BARON PA Unavailable Unavailable LETTIERE, A BARON PA Unavailable Unavailable LETTIERE, A BARON PA Unavailable Unavailable LETTIERE, A BARON PA Unavailable Unavailable NERI, B MEENU SOLAR MANAGER Unavailable Unavailable NERI, B MEENU SOLAR MANAGER Unavailable Unavailable NERI, B MEENU SOLAR MANAGER Unavailable Unavailable NERI, B MEENU SOLAR MANAGER Unavailable Unavailable NERI, B MEENU SOLAR MANAGER Unavailable Unavailable NERI, B MEENU SOLAR MANAGER Unavailable Unavailable NERI, B MEENU SOLAR MANAGER Unavailable Unavailable NERI, B MEENU SOLAR MANAGER Unavailable Unavailable NERI, B MEENU SOLAR MANAGER Unavailable Unavailable NERI, B MEENU SOLAR MANAGER Unavailable Unavailable NERI, B MEENU SOLAR MANAGER Unavailable Unavailable NERI, B MEENU SOLAR MANAGER Unavailable Unavailable NERI, B MEENU SOLAR MANAGER Unavailable Unavailable NERI, B MEENU SOLAR MANAGER Unavailable Unavailable NERI, B MEENU SOLAR MANAGER Unavailable Unavailable NERI, B MEENU SOLAR MANAGER Unavailable Unavailable NERI, B MEENU SOLAR MANAGER Unavailable Unavailable NERI, B MEENU SOLAR MANAGER Unavailable Unavailable NERI, B MEENU SOLAR MANAGER Unavailable Unavailable NERI, B MEENU SOLAR MANAGER Unavailable Unavailable NERI, B MEENU SOLAR MANAGER Unavailable Unavailable NERI, B MEENU SOLAR MANAGER Unavailable Unavailable NERI, B MEENU SOLAR MANAGER Unavailable Unavailable NERI, B MEENU SOLAR MANAGER Unavailable Unavailable NERI, B MEENU SOLAR MANAGER Unavailable Unavailable NERI, B MEENU SOLAR MANAGER Unavailable Unavailable NERI, B MEENU SOLAR MANAGER Unavailable Unavailable NERI, B MEENU SOLAR MANAGER Unavailable Unavailable NERI, B MEENU SOLAR MANAGER Unavailable Unavailable NERI, B MEENU SOLAR MANAGER Unavailable Unavailable NERI, B MEENU SOLAR MANAGER Unavailable Unavailable NERI, B MEENU SOLAR MANAGER Unavailable Unavailable NERI, B MEENU SOLAR MANAGER Unavailable Unavailable NERI, B MEENU SOLAR MANAGER Unavailable Unavailable NERI, B MEENU SOLAR MANAGER Unavailable Unavailable NERI, B MEENU SOLAR MANAGER Unavailable Unavailable NEIR, B MEENU SOLAR MANAGER Unavailable Unavailable NERI, B MEENU SOLAR MANAGER Unavailable Unavailable NERI, B MEENU SOLAR MANAGER Unavailable Unavailable NERI, B MEENU SOLAR MANAGER Unavailable Unavailable NERI, B MEENU SOLAR MANAGER Unavailable Unavailable NERI, B MEENU SOLAR MANAGER Unavailable Unavailable NERI, B MEENU SOLAR MANAGER Unavailable Unavailable NERI, B MEENU SOLAR MANAGER Unavailable Unavailable NERI, B MEENU SOLAR MANAGER Unavailable Unavailable NERI, B MEENU SOLAR MANAGER Unavailable Unavailable NERI, B MEENU SOLAR MANAGER Unavailable Unavailable NERI, B MEENU SOLAR MANAGER Unavailable Unavailable NERI, B MEENU SOLAR MANAGER Unavailable Unavailable NERI, B MEENU SOLAR MANAGER Unavailable Unavailable NERI, B MEENU SOLAR MANAGER Unavailable Unavailable NERI, B MEENU SOLAR MANAGER Unavailable Unavailable NERI, B MEENU SOLAR MANAGER Unavailable Unavailable NERI, B MENEU SOLAR MANAGER Unavailable Unavailable NERI, B MEENU SOLAR MANAGER Unavailable Unavailable NERI, B MEENU SOLAR MANAGER Unavailable Unavailable NERI, B MEENU SOLAR MANAGER Unavailable Unavailable NERI, B MEENU SOLAR MANAGER Unavailable Unavailable NERI, B MEENU SOLAR MANAGER Unavailable Unavailable NERI, B MEENU SOLAR MANAGER Unavailable Unavailable NERI, B MEENU SOLAR MANAGER Unavailable Unavailable NERI, B MEENU SOLAR MANAGER Unavailable Unavailable Zayas, Estefanía Jacque PA Unavailable Unavailable Zayas, Estefanía Jacque PA Unavailable Unavailable Zayas, Estefanía Simonlyn PA Unavailable Unavailable Zayas, Estefanía Jacque PA Unavailable Unavailable Zayas, Estefanía Simonlyn PA Unavailable Unavailable Zayas, Estefanía Jacque PA Unavailable Unavailable Zayas, Estefanía Jacque PA Unavailable Unavailable Zayas, Estefanía Jacque PA Unavailable Unavailable Zayas, Estefanía Jacque PA Unavailable Unavailable Zayas, Estefanía Jacque PA Unavailable Unavailable Chacho, Paulo AL Unavailable Unavailable Flor, Paulo AL Unavailable Unavailable Flor, Paulo AL Unavailable Unavailable Flor, Paulo AL Unavailable Unavailable Flor, Paulo AL Unavailable Unavailable Flor, Paulo AL Unavailable Unavailable Flor, Paulo LA Unavailable Unavailable Flor, Paulo AL Unavailable Unavailable Flor, Paulo AL Unavailable Unavailable Flor, Paulo AL Unavailable Unavailable JOSE, EDMUND PA Unavailable Unavailable JOSE, EDMUND PA Unavailable Unavailable JOSE, EDMUND PA Unavailable Unavailable JOSE, EDMUND PA Unavailable Unavailable JOSE, EDMUND PA Unavailable Unavailable JOSE, EDMUND PA Unavailable Unavailable JOSE, EDMUND PA Unavailable Unavailable JOSE, EDMUND PA Unavailable Unavailable JOSE, EDMUND PA Unavailable Unavailable JOSE, EDMUND PA Unavailable Unavailable JOSE, EDMUND PA Unavailable Unavailable JOSE, EDMUND PA Unavailable Unavailable JOSE, EDMUND PA Unavailable Unavailable JOSE, EDMUND PA Unavailable Unavailable JOSE, EDMUND PA Unavailable Unavailable JOSE, EDMUND PA Unavailable Unavailable JOSE, EDMUND PA Unavailable Unavailable JOSE, EDMUND PA Unavailable Unavailable JOSE, EDMUND PA Unavailable Unavailable JOSE, EDMUND PA Unavailable Unavailable JOSE, EDMUND PA Unavailable Unavailable JOSE, EDMUND PA Unavailable Unavailable JOSE, EDMUND PA Unavailable Unavailable JOSE, EDMUND PA Unavailable Unavailable JOSE, EDMUND PA Unavailable Unavailable JOSE, EDMUND PA Unavailable Unavailable JOSE, EDMUND PA Unavailable Unavailable JOSE, EDMUND PA Unavailable Unavailable JOSE, EDMUND PA Unavailable Unavailable JOSE, EDMUND PA Unavailable Unavailable JOSE, EDMUND PA Unavailable Unavailable JOSE, EDMUND PA Unavailable Unavailable JOSE, EDMUND PA Unavailable Unavailable JOSE, EDMUND PA Unavailable Unavailable JOSE, EDMUND PA Unavailable Unavailable JOSE, EDMUND PA Unavailable Unavailable Rg Rojas, Linden Bates MD, FACS Unavailable Unavailable Rg Rojas, Linden Bates MD, FACS Unavailable Unavailable Rg Rojas, Linden Bates MD, FACS Unavailable Unavailable Rg Rojas, Linden Bates MD, FACS Unavailable Unavailable Rg Rojas, Linden Bates MD, FACS Unavailable Unavailable Rg Orjas, Linden Bates MD, FACS Unavailable Unavailable Rg Rojas, Linden Bates MD, FACS Unavailable Unavailable Rg Rojas, Linden Bates MD, FACS Unavailable Unavailable Rg Rojas, Linden Bates MD, FACS Unavailable Unavailable Rg Rojas, Linden Bates MD, FACS Unavailable Unavailable Rg Rojas, Linden Bates MD, FACS Unavailable Unavailable Rg Rojas, Linden Bates MD, FACS Unavailable Unavailable Rg Rojas, Linden Bates MD, FACS Unavailable Unavailable Rg Rojas, Linden Bates MD, FACS Unavailable Unavailable Rg Rojas, Linden Bates MD, FACS Unavailable Unavailable Rg Rojas, Linden Bates MD, FACS Unavailable Unavailable Rg Rojas, Linden Bates MD, FACS Unavailable Unavailable Rg Rojas, Linden Bates MD, FACS Unavailable Unavailable Rg Rojas, Linden Bates MD, FACS Unavailable Unavailable Rg Rojas, Linden Bates MD, FACS Unavailable Unavailable Rg Rojas, Linden Bates MD, FACS Unavailable Unavailable Rg Rojas, Linden Bates MD, FACS Unavailable Unavailable Rg Rojas, Linden Bates MD, FACS Unavailable Unavailable Rg Rojas, Linden Bates MD, FACS Unavailable Unavailable Rg Rojas, Linden Bates MD, FACS Unavailable Unavailable Rg Rojas, Linden Bates MD, FACS Unavailable Unavailable Rg Rojas, Linden Bates MD, FACS Unavailable Unavailable Rg Rojas, Linden Bates MD, FACS Unavailable Unavailable Rg Rojas, Linden Bates MD, FACS Unavailable Unavailable Rg Rojas, Linden Bates MD, FACS Unavailable Unavailable Rg Rojas, Linden Bates MD, FACS Unavailable Unavailable Rg Rojas, Linden Bates MD, FACS Unavailable Unavailable Rg Rojas, Linden Bates MD, FACS Unavailable Unavailable Rg Rojas, Linden Bates MD, FACS Unavailable Unavailable Linden Briggs MD, FACS Unavailable Unavailable Linden Briggs MD, FACS Unavailable Unavailable Linden Briggs MD, FACS Unavailable Unavailable Linden Briggs MD, FACS Unavailable Unavailable Linden Briggs MD, FACS Unavailable Unavailable Gabrielle Staley MD Unavailable Unavailable Gabrielle Staley MD Unavailable Unavailable Rebeka O Joon AL Unavailable Unavailable Gabrielle Staley MD Unavailable Unavailable Rebeka O Joon AL Unavailable Unavailable Gabrielle Staley MD Unavailable Unavailable Rebeka O Joon AL Unavailable Unavailable Gabrielle Staley MD Unavailable Unavailable Rebeka O Joon AL Unavailable Unavailable Rebeka O Joon AL Unavailable Unavailable Gabrielle Staley MD Unavailable Unavailable Gabrielle Staley MD Unavailable Unavailable Gabrielle Staley MD Unavailable Unavailable Gabrielle Staley MD Unavailable Unavailable Gabrielle Staley MD Unavailable Unavailable Gabrielle Staley MD Unavailable Unavailable Gabrielle Staley MD Unavailable Unavailable Gabrielle Staley MD Unavailable Unavailable Gabrielle Staley MD Unavailable Unavailable Gabrielle Staley MD Unavailable Unavailable Gabrielle Staley MD Unavailable Unavailable Gabrielle Staley MD Unavailable Unavailable Gabrielle Staley MD Unavailable Unavailable Gabrielle Staley MD Unavailable Unavailable Gabrielle Staley MD Unavailable Unavailable Gabrielle Staley MD Unavailable Unavailable Gabrielle Staley MD Unavailable Unavailable Gabrielle Staley MD Unavailable Unavailable Rebeka O Joon AL Unavailable Unavailable Rebeka O Joon AL Unavailable Unavailable Gabrielle Staley MD Unavailable Unavailable Rebeka O Joon AL Unavailable Unavailable Rebeka O Joon AL Unavailable Unavailable Rebeka O Joon AL Unavailable Unavailable Rebeka O Joon AL Unavailable Unavailable Rebeka O Joon AL Unavailable Unavailable Rebeka O Joon AL Unavailable Unavailable Rebeka O Joon AL Unavailable Unavailable Rebeka O Joon AL Unavailable Unavailable Rebeka O Joon AL Unavailable Unavailable Rebeka O Samah Unavailable Unavailable Gabrielle Staley MD Unavailable Unavailable Rebeka O Samah Unavailable Unavailable Rebeka O Joon AL Unavailable Unavailable Rebeka O Samlaverne AL Unavailable Unavailable Rebeka O Joon AL Unavailable Unavailable Rebeka O Joon AL Unavailable Unavailable Rebeka O Samah Unavailable Unavailable Rebeka O Jesseah Unavailable Unavailable Rebeka O Joon AL Unavailable Unavailable Rebeka O Samlaverne AL Unavailable Unavailable Rebeka O Joon AL Unavailable Unavailable Rebeka O Jesseah Unavailable Unavailable Rebeka, O Samah Unavailable Unavailable Rebeka O Joon AL Unavailable Unavailable Rebeka O Joon LA Unavailable Unavailable Rebeka O Joon AL Unavailable Unavailable Rebeka O Joon AL Unavailable Unavailable Rebeka O Joon AL Unavailable Unavailable Rebeka O Joon AL Unavailable Unavailable Rebeka O Joon AL Unavailable Unavailable Gabrielle Staley MD Unavailable Unavailable Rebeka O Joon AL Unavailable Unavailable Gabrielle Staley MD Unavailable Unavailable Gabrielle Staley MD Unavailable Unavailable Gabrielle Staley MD Unavailable Unavailable Rebeka O Joon AL Unavailable Unavailable Gabrielle Staley MD Unavailable Unavailable Rebeka O Joon AL Unavailable Unavailable Gabrielle Staley MD Unavailable Unavailable Gabrielle Staley MD Unavailable Unavailable Gabrielle Staley MD Unavailable Unavailable Rebeka O Joon AL Unavailable Unavailable Gabrielle Staley MD Unavailable Unavailable Rebeka O Joon AL Unavailable Unavailable Rebeka O Jesseah Unavailable Unavailable Rebeka O Jesseah Unavailable Unavailable Rebeka O Joon AL Unavailable Unavailable Rebeka O Joon AL Unavailable Unavailable Melanie Lopez MD Unavailable Unavailable Melanie Lopez MD Unavailable Unavailable Melanie Lopez MD Unavailable Unavailable Melanie Lopez MD Unavailable Unavailable Melanie Lopez MD Unavailable Unavailable Melanie Lopez MD Unavailable Unavailable Melanie Lopez MD Unavailable Unavailable VanfernandoamMelanie MD Unavailable Unavailable VaneenenaamMelanie MD Unavailable Unavailable VaneenenaamMelanie MD Unavailable Unavailable VaneenenaamMelanie MD Unavailable Unavailable VaneenenaamMelanie MD Unavailable Unavailable VaneenenaamMelanie MD Unavailable Unavailable VaneenenaamMelanie MD Unavailable Unavailable VanMelanie guzmán MD Unavailable Unavailable VanfernandoamMelanie MD Unavailable Unavailable VaneenenaamMelanie MD Unavailable Unavailable Vaneenaracelisam, Melanie Alfaro MD Unavailable Unavailable VaneenenaamMelanie MD Unavailable Unavailable Vaneenenaam, Melanie Alfaro MD Unavailable Unavailable VaneenaracelisamMelanie MD Unavailable Unavailable Vanfernandoam, Melanie Alfaro MD Unavailable Unavailable VanMelanie guzmán MD Unavailable Unavailable Vanfernandoam, Melanie Alfaro MD Unavailable Unavailable Vanfernandoam, Melanie Alfaor MD Unavailable Unavailable Vanarielle, Melanie Alfaro MD Unavailable Unavailable VanMelanie guzmán MD Unavailable Unavailable Jessica, Melanie Alfaro MD Unavailable Unavailable VanMelanie guzmán MD Unavailable Unavailable Vanarielle, Melanie Alfaro MD Unavailable Unavailable VanMelanie guzmán MD Unavailable Unavailable VanMelanie guzmán MD Unavailable Unavailable Melanie Lopez MD Unavailable Unavailable Melanie Lopez MD Unavailable Unavailable Melanie Lopez MD Unavailable Unavailable Melanie Lopez MD Unavailable Unavailable VanMelanie guzmán MD Unavailable Unavailable Melanie Lopez MD Unavailable Unavailable VanMelanie guzmán MD Unavailable Unavailable Melanie Lopez MD Unavailable Unavailable VanMelanie guzmán MD Unavailable Unavailable Melanie Lopez MD Unavailable Unavailable VanMelanie guzmán MD Unavailable Unavailable Melanie Lopez MD Unavailable Unavailable VanMelanie guzmán MD Unavailable Unavailable Melanie Lopez MD Unavailable Unavailable John Koch MD Unavailable Unavailable John Koch MD Unavailable Unavailable John Koch MD Unavailable Unavailable John Koch MD Unavailable Unavailable John Koch MD Unavailable Unavailable John Koch MD Unavailable Unavailable John Koch MD Unavailable Unavailable John Koch MD Unavailable Unavailable John Koch MD Unavailable Unavailable John Koch MD Unavailable Unavailable John Koch MD Unavailable Unavailable John Koch MD Unavailable Unavailable John Koch MD Unavailable Unavailable John Koch MD Unavailable Unavailable John Koch MD Unavailable Unavailable John Koch MD Unavailable Unavailable Koch, John Gruber MD Unavailable Unavailable Koch, John Gruber MD Unavailable Unavailable Koch, John Gruber MD Unavailable Unavailable Koch, John Gruber MD Unavailable Unavailable Koch, John Gruber MD Unavailable Unavailable Koch, John Gruber MD Unavailable Unavailable Koch, John Gruber MD Unavailable Unavailable Koch, John Gruber MD Unavailable Unavailable Koch, John Gruber MD Unavailable Unavailable Koch, John Gruber MD Unavailable Unavailable Koch, John Gruber MD Unavailable Unavailable Koch, John Gruber MD Unavailable Unavailable Koch, John Gruber MD Unavailable Unavailable Koch, John Gruber MD Unavailable Unavailable Koch, John Gruber MD Unavailable Unavailable Koch, John Gruber MD Unavailable Unavailable Koch, John Gruber MD Unavailable Unavailable Koch, John Gruber MD Unavailable Unavailable Koch, John Gruber MD Unavailable Unavailable Koch, John Gruber MD Unavailable Unavailable Koch, John Gruber MD Unavailable Unavailable Koch, John Gruber MD Unavailable Unavailable Koch, John Gruber MD Unavailable Unavailable Koch, John Gruber MD Unavailable Unavailable Koch, John Gruber MD Unavailable Unavailable Koch, John Gruber MD Unavailable Unavailable Koch, John Gruber MD Unavailable Unavailable Koch, John Gruber MD Unavailable Unavailable Koch, John Gruber MD Unavailable Unavailable Koch, John Gruber MD Unavailable Unavailable Koch, John Gruber MD Unavailable Unavailable Koch, John Gruber MD Unavailable Unavailable Koch, John Gruber MD Unavailable Unavailable Koch, John Gruber MD Unavailable Unavailable Koch, John Gruber MD Unavailable Unavailable Koch, John Gruber MD Unavailable Unavailable Koch, John Gruber MD Unavailable Unavailable Koch, John Gruber MD Unavailable Unavailable Yessica II, Ziggy PA Unavailable Unavailable Yessica II, Ziggy PA Unavailable Unavailable Yessica II, Ziggy PA Unavailable Unavailable Yessica II, Ziggy PA Unavailable Unavailable Yessica II, Ziggy PA Unavailable Unavailable Yessica II, Ziggy PA Unavailable Unavailable Yessica II, Ziggy PA Unavailable Unavailable Yessica II, Ziggy PA Unavailable Unavailable Yessica II, Ziggy PA Unavailable Unavailable Yessica II, Ziggy PA Unavailable Unavailable Yessica II, Ziggy PA Unavailable Unavailable Yessica II, Ziggy PA Unavailable Unavailable Yessica II, Ziggy PA Unavailable Unavailable Yessica II, Ziggy PA Unavailable Unavailable Yessica II, Ziggy PA Unavailable Unavailable Yessica II, Ziggy PA Unavailable Unavailable Yessica II, Ziggy PA Unavailable Unavailable Yessica II, Ziggy PA Unavailable Unavailable Yessica II, Ziggy PA Unavailable Unavailable Re-disclosure Warning The records that you are about to access may contain information from federally-assisted alcohol or drug abuse programs. If such information is present, then the following federally mandated warning applies: This information has been disclosed to you from records protected by federal confidentiality rules (42 CFR part 2). The federal rules prohibit you from making any further disclosure of this information unless further disclosure is expressly permitted by the written consent of the person to whom it pertains or as otherwise permitted by 42 CFR part 2. A general authorization for the release of medical or other information is NOT sufficient for this purpose. The Federal rules restrict any use of the information to criminally investigate or prosecute any alcohol or drug abuse patient.The records that you are about to access may contain highly sensitive health information, the redisclosure of which is protected by Article 27-F of the [facility] Public Health law. If you continue you may have access to information: Regarding HIV / AIDS; Provided by facilities licensed or operated by the [facility] Office of Mental Health; or Provided by the [facility] Office for People With Developmental Disabilities. If such information is present, then the following [facility] mandated warning applies: This information has been disclosed to you from confidential records which are protected by state law. State law prohibits you from making any further disclosure of this information without the specific written consent of the person to whom it pertains, or as otherwise permitted by law. Any unauthorized further disclosure in violation of state law may result in a fine or assisted sentence or both. A general authorization for the release of medical or other information is NOT sufficient authorization for further disc losure. Allergies and Adverse Reactions Type Description Substance Reaction Status Data Source(s ) Allergy to substance No Known Allergies No known allergies (situation ) [facility] (Paulo Rojas MD [facility]) Allergy to substance No Known Allergies No known allergies (situation ) GUMARO ([facility] Rojas [facility]) Family History Family Member Name Family Member Gender Family Member Status Date o f Status Description Data Source(s) Unknown Unknown Problem [facility] ([facility]) Encounters Encounter Providers Location Date Indications Data Source(s ) Unknown [address] [facility], [facility] [id number] 2021 12:00:00 AM EDT eCW1 ([facility]) Outpatient Attender: Gelacio Tony MD Main Office 06/24/2021 09:15:00 AM EDT [facility] ([facility]) ([facility]) Transition of Care Visit [address] [place] [address] 06/24/2021 12:00:00 AM EDT eCW1 ([facility]) Out[place] [address] [facility] [address] 06/16/2021 12:00:00 AM EDT eCW1 ([facility]) Outpatient Attender: MEENU HE NP Physical Therapy 08:30:00 AM EDT [facility] ([facility]) Unknown [address] [facility] [address] 06/07/2021 12:00:00 AM EDT eCW1 ([facility]) [place] [address] [facility] [address] 06/02/2021 12:00:00 AM EDT eCW1 ([facility]) [place] [address] [facility] [address] 05/27/2021 12:00:00 AM EDT eCW1 ([facility]) Outpatient Attender: MEENU HE NP Physical Therapy 03:15:00 PM EDT [facility] ([facility]) Unknown [address] [facility] [address] 05/19/2021 12:00:00 AM EDT eCW1 ([facility]) Unknown [address] [facility] [place] [address] 05/05/2021 12:00:00 AM EDT eCW1 ([facility]) Outpatient [address] [facility] [address] 05/05/2021 12:00:00 AM EDT eCW1 ([facility]) Unknown [address] [facility] [address] 04/12/2021 12:00:00 AM EDT eCW1 ([facility]) Out[place] [address] [facility] [address] 04/09/2021 12:00:00 AM EDT eCW1 ([facility]) Outpatient Attender: BARON guzman 03/10/2021 08:15:00 AM EDT MEDENT ([facility]) Outpatient Attender: Paulo Mcgraw/Hakeem/Noel/Favian bartholomew 02/17/2021 08:00:00 AM EDT MEDENT ([facility] Out[place] [address] [facility] [address] 02/11/2021 12:00:00 AM EDT eCW1 ([facility]) Outpatient Attender: EDMUND Johnsona ry 02/03/2021 10:30:00 AM EDT MEDENT ([facility] <td ID="encounterTypeDescriptionID0">Rx Refills/Changes</td><td>Paulo Rojas MD, FACS</td><td></td><td>07/05/2021</td><td>02/03/2021 9:38AM</td><td>02/03/2021 11:59PM</td><td></td>Outpatient Attender: Paulo Rojas MD, FACS 02/03/2021 09:38:00 AM EDT - 02/03/2021 11:59:00 PM EDT [place] (Paulo Rojas MD [facility]) <td ID="encounterTypeDescriptionID2">5 M ont Follow-Up</td><td>Paulo Rojas MD, FACS</td><td>Paulo Inman MD [facility]</td><td>02/03/2021</td><td>9:33AM</td><td>9:59AM</td><td><content ID="encounterDiagnosisID2-0">Glaucoma Open-angle Primary</content>, <content ID="encounterDiagnosisID2-1">History of Nicotine Dependence</content>, <content ID="encounterDiagnosisID2-2">Essential Hypertension</content>, <content ID="encounterDiagnosisID2-3">Retinopathy Hypertensive</content>, <content ID="encounterDiagnosisID2-4">Cataract Senile Cortical</content>, <content ID="encounterDiagnosisID2-5">Cataract Senile Nuclear</content>, <content ID="encounterDiagnosisID2-6">Cataract Senile Hypermature</content></td>Outpatient Attender: Paulo Rojas MD, FACS Paulo Inman MD [facility] 02/03/2021 09:33:00 AM EDT - 02/03/2021 09:59:00 AM ED T Retinopathy HypertensiveEssential HypertensionHistory of Nicotine DependenceGlaucoma Open-angle PrimaryRetinopathy HypertensiveEssential HypertensionHistory of Nicotine DependenceGlaucoma Open-angle PrimaryCataract Senile CorticalCataract Senile CorticalCataract Senile NuclearCataract Senile NuclearCataract Senile HypermatureCataract Senile Hypermature [place] ([facility]jas [facility]) Retinopathy Hypertensive Essential Hypertension History of Nicotine Dependence Glaucoma Open-angle Primary Retinopathy Hypertensive Essential Hypertension History of Nicotine Dependence Glaucoma Open-angle Primary Cataract Senile Cortical Cataract Senile Cortical Cataract Senile Nuclear Cataract 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 Outpatient<td ID="encounterTypeDescripti onID1">Rx Refills/Changes</td><td>Paulo Inman MD, FACS</td><td></td><td>06/29/2021</td><td>02/03/2021 7:53AM</td><td>02/03/2021 11:59PM</td><td></td> Attender: Paulo Rojas MD, FACS 02/03/2021 07:53:00 AM EDT - 02/03/2021 11:59:00 PM EDT [place] ([facility]) Office Visit Attender: Joon Staley MD Main office - [facility] 12/11/2020 09:30:00 AM EST MEDENT ([facility]) Unknown [address] [facility] [address] 11/20/2020 12:00:00 AM EST eCW1 ([facility]) Outpatient [address] [facility] [address] 11/13/2020 12:00:00 AM EST eCW1 ([facility]) Unknown [address] [facility] [place] [address] 10/26/2020 12:00:00 AM EST eCW1 ([facility]) Unknown [address] [facility] [place] [address] 10/22/2020 12:00:00 AM EST eCW1 ([facility]) Unknown [address] [facility] [place] [address] 10/22/2020 12:00:00 AM EST eCW1 ([facility]) (TCM) Transition of Care Visit [address] [place] [address] 10/15/2020 12:00:00 AM EST eCW1 ([facility]) Unknown [address] [facility] [place] [address] 10/13/2020 12:00:00 AM EST eCW1 ([facility]) Unknown [address] [facility] [place] [address] 10/09/2020 12:00:00 AM EST eCW1 ([facility]) Unknown [address] [facility] [place] [address] 10/07/2020 12:00:00 AM EST eCW1 ([facility]) Outpatient Attender: Jacque guzman 10/03/2020 09:05:00 AM EST MEDENT ([facility]) Unknown [address] [facility] [place] [address] 09/29/2020 12:00:00 AM EST [facility]CW1 [facility] Outpatient Attender: Joon Staley MD Main office - [facility] 09/10/2020 08:30:00 AM EST MEDENT ([facility] ) Office Visit, Est Pt., Level 3 FC [address] [place] [address] 09/10/2020 12:00:00 AM EST eCW1 ([facility]) Outpatient Attender: Yasmani Mcgraw/Hakeem/Noel/R eindl 09/09/2020 01:00:00 PM EST [facility]ENT ([facility] Outpatient Attender: Ziggy Mcgraw/Hakeem/Noel/Rein dl 09/09/2020 09:30:00 AM EST MEDENT ([facility]) Outpatient Attender: Melanie Lopez MD Physical Therap y 09/08/2020 09:15:00 AM EST MEDENT ([facility]) Outpatient<td ID="encounterTypeDescripti onID3">5 Month Follow-Up and Testing</td><td>Paulo Inman MD, FACS</td><td>Paulo Inman MD [facility]</td><td>08/26/2020</td><td>8:43AM</td><td>10:02AM</td><td><content ID="encounterDiagnosisID3-0">Glaucoma Open-angle Primary</content>, <content ID="encounterDiagnosisID3-1">History of Nicotine Dependence</content>, <content ID="encounterDiagnosisID3-2">Essential Hypertension</content>, <content ID="encounterDiagnosisID3-3">Retinopathy Hypertensive</content>, <content ID="encounterDiagnosisID3-4">Cataract Senile Cortical</content>, <content ID="encounterDiagnosisID3-5">Cataract Senile Nuclear</content>, <content ID="encounterDiagnosisID3-6">Cataract Senile Hypermature</content></td> Attender: Paulo Rojas MD, FACS Paulo Inman MD [facility] 08/26/2020 08:43:0 0 AM EST - 08/26/2020 10:02:00 AM EST Retinopathy HypertensiveEssential HypertensionHistory of Nicotine DependenceGlaucoma Open-angle PrimaryRetinopathy HypertensiveEssential HypertensionHistory of Nicotine DependenceGlaucoma Open- angle PrimaryCataract Senile CorticalCataract Senile CorticalCataract Senile NuclearCataract Senile NuclearCataract Senile HypermatureCataract Senile Hypermature [facility] ([facility]o Rojas MD [facility]) Retinopathy Hypertensive Essential Hypertension History of Nicotine Dependence Glaucoma Open-angle Primary Retinopathy Hypertensive Essential Hypertension History of Nicotine Dependence Glaucoma Open-angle Primary Cataract Senile Cortical Cataract Senile Cortical Cataract Senile Nuclear Cataract 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 Outpatient [address] [facility] [address] 08/13/2020 12:00:00 AM EDT eCW1 ([facility]) [place] [address] [facility] [address] 08/07/2020 12:00:00 AM EDT eCW1 ([facility]) Outpatient Attender: MEENU HE NP Physical Therapy 11:00:00 AM EDT NOY ([facility] ) Immunizations Vaccine Date Status Description Data Source(s) Tdap 02/03/2021 10:35:00 AM EDT completed M EDENT ([facility]) Zoster 50mcg/0.5mL Shingrix 11/13/2020 03:14:00 PM EST completed eCW1 ([facility]) Zoster 50mcg/0.5mL Shingrix 11/13/2020 03:14:00 PM EST completed eCW1 ([facility]) Zoster 50mcg/0.5mL Shingrix 11/13/2020 03:14:00 PM EST completed eCW1 ([facility]) Zoster 50mcg/0.5mL Shingrix 11/13/2020 03:14:00 PM EST completed eCW1 ([facility]) Zoster 50mcg/0.5mL (Shingrix) 11/13/2020 03:14:00 PM EST completed eCW1 ([facility]) Zoster 50mcg/0.5mL (Shingrix) 11/13/2020 03:14:00 PM EST completed eCW1 ([facility]) Zoster 50mcg/0.5mL Shingrix 11/13/2020 03:14:00 PM EST completed eCW1 ([facility]) Zoster 50mcg/0.5mL Shingrix 11/13/2020 03:14:00 PM EST completed eCW1 ([facility]) Zoster 50mcg/0.5mL Shingrix 11/13/2020 03:14:00 PM EST completed eCW1 ([facility]) Zoster 50mcg/0.5mL Shingrix 11/13/2020 03:14:00 PM EST completed eCW1 ([facility]) Zoster 50mcg/0.5mL Shingrix 11/13/2020 03:14:00 PM EST completed eCW1 ([facility]) Zoster 50mcg/0.5mL Shingrix 11/13/2020 03:14:00 PM EST completed eCW1 ([facility]) Zoster 50mcg/0.5mL Shingrix 11/13/2020 03:14:00 PM EST completed eCW1 ([facility]) Zoster 50mcg/0.5mL Shingrix 11/13/2020 03:14:00 PM EST completed eCW1 ([facility]) Zoster 50mcg/0.5mL Shingrix 11/13/2020 03:14:00 PM EST completed eCW1 ([facility]) influenza, recombinant, quadrIvalent,injectable, prese rvative free 09/10/2020 05:17:00 PM EST completed eCW1 ([facility]) influenza, recombinant, quadrIvalent,injectable, prese rvative free 09/10/2020 05:17:00 PM EST completed eCW1 ([facility]) influenza, recombinant, quadrIvalent,injectable, prese rvative free 09/10/2020 05:17:00 PM EST completed eCW1 ([facility]) influenza, recombinant, quadrIvalent,injectable, prese rvative free 09/10/2020 05:17:00 PM EST completed eCW1 ([facility]) influenza, recombinant, quadrIvalent,injectable, prese rvative free 09/10/2020 05:17:00 PM EST completed eCW1 ([facility]) influenza, recombinant, quadrIvalent,injectable, prese rvative free 09/10/2020 05:17:00 PM EST completed eCW1 ([facility]) influenza, recombinant, quadrIvalent,injectable, prese rvative free 09/10/2020 05:17:00 PM EST completed eCW1 ([facility]) influenza, recombinant, quadrIvalent,injectable, prese rvative free 09/10/2020 05:17:00 PM EST completed eCW1 ([facility]) influenza, recombinant, quadrIvalent,injectable, prese rvative free 09/10/2020 05:17:00 PM EST completed eCW1 ([facility]) influenza, recombinant, quadrIvalent,injectable, prese rvative free 09/10/2020 05:17:00 PM EST completed eCW1 ([facility]) influenza, recombinant, quadrIvalent,injectable, prese rvative free 09/10/2020 05:17:00 PM EST completed eCW1 ([facility]) influenza, recombinant, quadrIvalent,injectable, prese rvative free 09/10/2020 05:17:00 PM EST completed eCW1 ([facility]) influenza, recombinant, quadrIvalent,injectable, prese rvative free 09/10/2020 05:17:00 PM EST completed eCW1 ([facility]) influenza, recombinant, quadrIvalent,injectable, prese rvative free 09/10/2020 05:17:00 PM EST completed eCW1 ([facility]) influenza, recombinant, quadrIvalent,injectable, prese rvative free 09/10/2020 05:17:00 PM EST completed eCW1 ([facility]) influenza, recombinant, quadrIvalent,injectable, prese rvative free 09/10/2020 05:17:00 PM EST completed eCW1 ([facility]) influenza, recombinant, quadrIvalent,injectable, prese rvative free 09/10/2020 05:17:00 PM EST completed eCW1 ([facility]) influenza, recombinant, quadrIvalent,injectable, prese rvative free 09/10/2020 05:17:00 PM EST completed eCW1 ([facility]) influenza, recombinant, quadrIvalent,injectable, prese rvative free 09/10/2020 05:17:00 PM EST completed eCW1 ([facility]) influenza, recombinant, quadrIvalent,injectable, prese rvative free 09/10/2020 05:17:00 PM EST completed eCW1 ([facility]) influenza, recombinant, quadrIvalent,injectable, prese rvative free 09/10/2020 05:17:00 PM EST completed eCW1 ([facility]) influenza, recombinant, quadrIvalent,injectable, prese rvative free 09/10/2020 05:17:00 PM EST completed eCW1 ([facility]) influenza, recombinant, quadrIvalent,injectable, prese rvative free 09/10/2020 05:17:00 PM EST completed eCW1 ([facility]) influenza, recombinant, quadrIvalent,injectable, prese rvative free 09/10/2020 05:17:00 PM EST completed eCW1 ([facility]) Medications Medication Brand Name Start Date Product Form Dose Route Admi nistrative Instructions Pharmacy Instructions Status Indications Reaction Description Data Source(s) Meclizine Hydrochloride 25 MG Chewable Tablet Meclizin e HCl 25 MG Meclizine HCl 25 MG 08/01/2021 12:00:00 AM EDT 1.0 {tablet_as_needed} active Meclizine HCl 25 MG eCW1 ([facility]) 325 mg (65 mg iron) 07/14/2021 12:00:00 AM EDT tablet 180 TAKE ONE TABLET BY MOUTH TWICE A DAY TAKE ONE TABLET BY MOUTH TWICE A DAY SOLD: 07/16/2021 [facility] latanoprost 0.05 MG/ML Ophthalmic Soluti on Latanoprost 0.005% Ophthalmic Solution Latanoprost 0.005% Ophthalmic Solution 07/05/2021 12:00:00 AM EDT active latanoprost 0.05 MG/ ML Ophthalmic Solution [facility] ([facility]) 0.005 % 06/29/2021 12:00:00 AM EDT drops 5 INSTILL 1 DROP INTO RIGHT EYE AT NIGHT INSTILL 1 DROP INTO RIGHT EYE AT NIGHT SOLD: 07/16/2021 [facility] latanoprost 0.05 MG/ML Ophthalmic Soluti on Latanoprost 0.005% Ophthalmic Solution Latanoprost 0.005% Ophthalmic Solution 06/29/2021 12:00:00 AM EDT aborted latanoprost 0.05 MG/ ML Ophthalmic Solution [facility] ([facility]jas [facility]) Sutab Sutab 06/24/2021 12:00:00 AM EDT active MEDENT ([facility]) 1.479-0.188- 0.225 gram 06/24/2021 12:00:00 AM EDT tablet 24 DIRECTED DIRECTED SOLD: 06/27/2021 [facility] Calcitriol 0.41779 MG Oral Capsule 0.25 mcg CALCITRIOL 06/11/2021 12:00:00 AM EDT capsule 60 TAKE ONE CAPSULE BY MOUTH TWICE A DAY WITH BREAKFAST AND DINNER TAKE ONE CAPSULE BY MOUTH TWICE A DAY WITH BREAKFAST A ND DINNER SOLD: 08/16/2021 [facility] Calcitriol 0.40303 MG Oral Capsule 0.25 mcg CALCITRIOL 06/11/2021 12:00:00 AM EDT capsule 60 TAKE ONE CAPSULE BY MOUTH TWICE A DAY WITH BREAKFAST AND DINNER TAKE ONE CAPSULE BY MOUTH TWICE A DAY WITH BREAKFAST A ND DINNER SOLD: 07/16/2021 [facility] Calcitriol 0.53921 MG Oral Capsule 0.25 mcg CALCITRIOL 06/11/2021 12:00:00 AM EDT capsule 60 TAKE ONE CAPSULE BY MOUTH TWICE A DAY WITH BREAKFAST AND DINNER TAKE ONE CAPSULE BY MOUTH TWICE A DAY WITH BREAKFAST A ND DINNER SOLD: 06/17/2021 [facility] 80 mg 06/08/2021 12:00:00 AM EDT tablet 90 TAKE ONE TABLET BY MOUTH EVERY DAY AT LUNCH TAKE ONE TABLET BY MOUTH EVERY DAY AT LUNCH SOLD: 06/10/2021 [facility] Aspirin 81 MG Chewable Tablet Aspirin 81 MG 06/01/2021 12:00:00 AM EDT 1.0 {tablet} active Aspirin 81 MG eCW1 ([facility]) Aspirin 81 MG Chewable Tablet Aspirin 81 MG 06/01/2021 12:00:00 AM EDT 1.0 {tablet} active Aspirin 81 MG eCW1 ([facility]) Aspirin 81 MG Chewable Tablet Aspirin 81 MG 06/01/2021 12:00:00 AM EDT 1.0 {tablet} active Aspirin 81 MG eCW1 ([facility]) Aspirin 81 MG Chewable Tablet Aspirin 81 MG 06/01/2021 12:00:00 AM EDT 1.0 {tablet} active Aspirin 81 MG eCW1 ([facility]) Aspirin 81 MG Chewable Tablet Aspirin 81 MG 06/01/2021 12:00:00 AM EDT 1.0 {tablet} active Aspirin 81 MG eCW1 ([facility]) Aspirin 81 MG Chewable Tablet Aspirin 81 MG 06/01/2021 12:00:00 AM EDT 1.0 {tablet} active Aspirin 81 MG eCW1 ([facility]) Meclizine Hydrochloride 25 MG Oral Tablet MECLIZINE HCL 05/31/2021 12:00:00 AM EDT tablet 30 TAKE ONE TABLET BY MOUTH THREE TIMES A DAY NEEDED FOR DIZZINESS TAKE ONE TABLET BY MOUTH THREE TIMES A DAY NEEDED F OR DIZZINESS SOLD: 06/03/2021 [facility] 10 mg 05/26/2021 12:00:00 AM EDT tablet 90 TAKE ONE TABLET BY MOUTH EVERY DAY TAKE ONE TABLET BY MOUTH EVERY DAY SOLD: 05/28/2021 [facility] 20 mg 05/26/2021 12:00:00 AM EDT tablet 90 TAKE ONE TABLET BY MOUTH EVERY DAY TAKE ONE TABLET BY MOUTH EVERY DAY SOLD: 05/28/2021 [facility] 50 mg 04/19/2021 12:00:00 AM EDT tablet 10 TAKE ONE TABLET BY MOUTH NEEDED BEFORE SEXUAL ACTIVITY TAKE ONE TABLET BY MOUTH NEEDED BEFOR E SEXUAL ACTIVITY SOLD: 04/21/2021 [facility] sildenafil 50 MG Oral Tablet Sildenafil Citrate 50 MG Silden afil Citrate 50 MG 04/09/2021 12:00:00 AM EDT 1.0 {tablet_as_needed} suspended Sildenafil Citrate 50 MG eCW1 ([facility]) sildenafil 50 MG Oral Tablet Sildenafil Citrate 50 MG Silden afil Citrate 50 MG 04/09/2021 12:00:00 AM EDT 1.0 {tablet_as_needed} active Sildenafil Citrate 50 MG eCW1 ([facility]) sildenafil 50 MG Oral Tablet Sildenafil Citrate 50 MG Silden afil Citrate 50 MG 04/09/2021 12:00:00 AM EDT 1.0 {tablet_as_needed} suspended Sildenafil Citrate 50 MG eCW1 ([facility]) sildenafil 50 MG Oral Tablet Sildenafil Citrate 50 MG Silden afil Citrate 50 MG 04/09/2021 12:00:00 AM EDT 1.0 {tablet_as_needed} suspended Sildenafil Citrate 50 MG eCW1 ([facility]) sildenafil 50 MG Oral Tablet Sildenafil Citrate 50 MG Silden afil Citrate 50 MG 04/09/2021 12:00:00 AM EDT 1.0 {tablet_as_needed} active Sildenafil Citrate 50 MG eCW1 ([facility]) 20 mg 04/07/2021 12:00:00 AM EDT tablet 30 TAKE ONE TABLET BY MOUTH EVERY DAY TAKE ONE TABLET BY MOUTH EVERY DAY SOLD: 04/07/2021 [facility] 10 mg 04/07/2021 12:00:00 AM EDT tablet 30 TAKE ONE TABLET BY MOUTH EVERY DAY TAKE ONE TABLET BY MOUTH EVERY DAY SOLD: 04/07/2021 [facility] 20 mg 02/11/2021 12:00:00 AM EDT tablet 30 TAKE ONE TABLET BY MOUTH EVERY EVENING TAKE ONE TABLET BY MOUTH EVERY EVENING SOLD: 02/11/2021 [facility] Paroxetine 20 MG Oral Tablet [Paxil] Paxil 20 MG Paxil 20 MG 02/11/2021 12:00:00 AM EDT 1.0 {tablet_in_the_evening} active Paxil 20 MG eCW1 ([facility]) 10 mg 11/21/2020 12:00:00 AM EST tablet 90 TAKE ONE TABLET BY MOUTH EVERY DAY TAKE ONE TABLET BY MOUTH EVERY DAY SOLD: 02/11/2021 [facility] 10 mg 11/21/2020 12:00:00 AM EST tablet 90 TAKE ONE TABLET BY MOUTH EVERY DAY TAKE ONE TABLET BY MOUTH EVERY DAY SOLD: 11/23/2020 [facility] 90 mcg/actuation 11/05/2020 12:00:00 AM EST HFA aerosol inha ler 18 INHALE TWO PUFFS BY MOUTH FOUR TIMES A DAY NEEDED INHALE TWO PUFFS BY MOUTH FOUR TIMES A DAY NEEDED SOLD: 11/07/2020 [facility] 300 mg 10/17/2020 12:00:00 AM EST capsule 120 TAKE TWO CAPSULES BY MOUTH TWICE A DAY NEEDED FOR PAIN TAKE TWO CAPSULES BY MOUTH TWICE A DAY A S NEEDED FOR PAIN SOLD: 10/19/2020 [facility] Prednisone 20 MG Oral Tablet PredniSONE 20 MG PredniSONE 20 MG 10/06/2020 12:00:00 AM EST 1.0 {tablet} suspended PredniSONE 20 MG eCW1 ([facility]) gabapentin 300 MG Oral Capsule Gabapentin 300 MG Gabapentin 300 MG 10/06/2020 12:00:00 AM EST 2.0 {capsules} active Gabapentin 300 MG eCW1 ([facility]) Prednisone 20 MG Oral Tablet PredniSONE 20 MG PredniSONE 20 MG 10/06/2020 12:00:00 AM EST 1.0 {tablet} suspended PredniSONE 20 MG eCW1 ([facility]) gabapentin 300 MG Oral Capsule Gabapentin 300 MG Gabapentin 300 MG 10/06/2020 12:00:00 AM EST 2.0 {capsules} active Gabapentin 300 MG eCW1 ([facility]) Prednisone 20 MG Oral Tablet PredniSONE 20 MG PredniSONE 20 MG 10/06/2020 12:00:00 AM EST 1.0 {tablet} suspended PredniSONE 20 MG eCW1 ([facility]) gabapentin 300 MG Oral Capsule Gabapentin 300 MG Gabapentin 300 MG 10/06/2020 12:00:00 AM EST 2.0 {capsules} active Gabapentin 300 MG eCW1 ([facility]) gabapentin 300 MG Oral Capsule Gabapentin 300 MG Gabapentin 300 MG 10/06/2020 12:00:00 AM EST 2.0 {capsules} active Gabapentin 300 MG eCW1 ([facility]) gabapentin 300 MG Oral Capsule Gabapentin 300 MG Gabapentin 300 MG 10/06/2020 12:00:00 AM EST 2.0 {capsules} active Gabapentin 300 MG eCW1 ([facility]) Prednisone 20 MG Oral Tablet PredniSONE 20 MG PredniSONE 20 MG 10/06/2020 12:00:00 AM EST 1.0 {tablet} suspended PredniSONE 20 MG eCW1 ([facility]) Prednisone 20 MG Oral Tablet PredniSONE 20 MG PredniSONE 20 MG 10/06/2020 12:00:00 AM EST 1.0 {tablet} suspended PredniSONE 20 MG eCW1 ([facility]) gabapentin 300 MG Oral Capsule Gabapentin 300 MG Gabapentin 300 MG 10/06/2020 12:00:00 AM EST 2.0 {capsules} active Gabapentin 300 MG eCW1 ([facility]) Prednisone 20 MG Oral Tablet PredniSONE 20 MG PredniSONE 20 MG 10/06/2020 12:00:00 AM EST 1.0 {tablet} suspended PredniSONE 20 MG eCW1 ([facility]) gabapentin 300 MG Oral Capsule Gabapentin 300 MG Gabapentin 300 MG 10/06/2020 12:00:00 AM EST 2.0 {capsules} active Gabapentin 300 MG eCW1 ([facility]) gabapentin 300 MG Oral Capsule Gabapentin 300 MG Gabapentin 300 MG 10/06/2020 12:00:00 AM EST 2.0 {capsules} active Gabapentin 300 MG eCW1 ([facility]) gabapentin 300 MG Oral Capsule Gabapentin 300 MG Gabapentin 300 MG 10/06/2020 12:00:00 AM EST 2.0 {capsules} active Gabapentin 300 MG eCW1 ([facility]) Prednisone 20 MG Oral Tablet PredniSONE 20 MG PredniSONE 20 MG 10/06/2020 12:00:00 AM EST 1.0 {tablet} suspended PredniSONE 20 MG eCW1 ([facility]) gabapentin 300 MG Oral Capsule Gabapentin 300 MG Gabapentin 300 MG 10/06/2020 12:00:00 AM EST 2.0 {capsules} active Gabapentin 300 MG eCW1 ([facility]) Prednisone 20 MG Oral Tablet PredniSONE 20 MG PredniSONE 20 MG 10/06/2020 12:00:00 AM EST 1.0 {tablet} active Pr edniSONE 20 MG eCW1 ([facility]) Prednisone 20 MG Oral Tablet PredniSONE 20 MG PredniSONE 20 MG 10/06/2020 12:00:00 AM EST 1.0 {tablet} suspended PredniSONE 20 MG eCW1 ([facility]) Prednisone 20 MG Oral Tablet PredniSONE 20 MG PredniSONE 20 MG 10/06/2020 12:00:00 AM EST 1.0 {tablet} suspended PredniSONE 20 MG eCW1 ([facility]) Prednisone 20 MG Oral Tablet PredniSONE 20 MG PredniSONE 20 MG 10/06/2020 12:00:00 AM EST 1.0 {tablet} active Pr edniSONE 20 MG eCW1 ([facility]) gabapentin 300 MG Oral Capsule Gabapentin 300 MG Gabapentin 300 MG 10/06/2020 12:00:00 AM EST 2.0 {capsules} active Gabapentin 300 MG eCW1 ([facility]) Prednisone 20 MG Oral Tablet Prednisone 10/03/2020 12:00:00 AM EST ORAL completed MEDENT ([facility]) 20 mg 10/03/2020 12:00:00 AM EST tablet 8 TAKE 1 TABLET BY MOUTH TWICE DAILY FOR 4 DAYS TAKE 1 TABLET BY MOUTH TWICE DAILY FOR 4 DAYS SOLD: 10/07/2020 [facility] 80 mg 09/29/2020 12:00:00 AM EST tablet 90 TAKE ONE TABLET BY MOUTH AT BEDTIME TAKE ONE TABLET BY MOUTH AT BEDTIME SOLD: 03/09/2021 [facility] atorvastatin 80 MG Oral Tablet ATORVASTATIN CALCIUM 09/29/2020 1 2:00:00 AM EST tablet 90 TAKE ONE TABLET BY MOUTH AT BEDT MADELAINE TAKE ONE TABLET BY MOUTH AT BEDTIME SOLD: 01/02/2021 [facility] 80 mg 09/29/2020 12:00:00 AM EST tablet 90 TAKE ONE TABLET BY MOUTH AT BEDTIME TAKE ONE TABLET BY MOUTH AT BEDTIME SOLD: 10/02/2020 [facility] Sertraline 50 MG Oral Tablet Sertraline HCL 09/10/2020 12:00:00 AM EST ORAL active MEDENT ([facility]) 22.3-6.8 mg/mL 09/04/2020 12:00:00 AM EST drops 20 INSTILL ONE DROP INTO THE RIGHT EYE TWO TIMES A DAY INSTILL ONE DROP INTO THE RIGHT EYE TWO TIMES A DAY SOLD: 12/19/2020 [facility] dorzolamide 20 MG/ML / Timolol 5 MG/ML Ophthalmic Solu tion 22.3-6.8 mg/mL DORZOLAMIDE HCL/TIMOLOL MALEAT 09/04/2020 12:00:00 AM EST drops 20 INSTILL ONE DROP INTO THE RIGHT EYE TWO TIMES A DAY INSTILL ONE DROP INTO THE RIGHT EYE TWO TIMES A DAY SOLD: 03/09/2021 [facility] 22.3-6.8 mg/mL 09/04/2020 12:00:00 AM EST drops 20 INSTILL ONE DROP INTO THE RIGHT EYE TWO TIMES A DAY INSTILL ONE DROP INTO THE RIGHT EYE TWO TIMES A DAY SOLD: 09/12/2020 [facility] latanoprost 0.05 MG/ML Ophthalmic Soluti on Latanoprost 0.005% Ophthalmic Solution Latanoprost 0.005% Ophthalmic Solution 08/26/2020 12:00:00 AM EST aborted latanoprost 0.05 MG/ ML Ophthalmic Solution GUMARO (Paulo Rojas MD [facility]) dorzolamide 20 MG/ML / Timolol 5 MG/ML O phthalmic Solution Dorzolamide HCl- Timolol Mal 22.3-6.8 MG/ML Ophthalmic Solution Dorzolamide HCl-Timolol Mal 22.3- 6.8 MG/ML Ophthalmic Solution 08/26/2020 12:00:00 AM EST active dorzolamide 20 MG/ML / timolol 5 MG/ML Ophthalmic Solution GUMARO (Paulo Rojas MD [facility]) Levothyroxine Sodium 0.05 MG Oral Tablet Levothyroxine Sodiu m 08/13/2020 12:00:00 AM EDT ORAL completed [facility] ([facility] ) 300 mg 07/14/2020 12:00:00 AM EDT capsule 120 TAKE 2 CAPSULES BY MOUTH TWICE A DAY NEEDED FOR PAIN TAKE 2 CAPSULES BY MOUTH TWICE A DAY NEEDED FOR PAIN SOLD: 07/25/2020 [facility] 300 mg 07/14/2020 12:00:00 AM EDT capsule 120 TAKE 2 CAPSULES BY MOUTH TWICE A DAY NEEDED FOR PAIN TAKE 2 CAPSULES BY MOUTH TWICE A DAY NEEDED FOR PAIN SOLD: 08/22/2020 [facility] 300 mg 07/14/2020 12:00:00 AM EDT capsule 120 TAKE 2 CAPSULES BY MOUTH TWICE A DAY NEEDED FOR PAIN TAKE 2 CAPSULES BY MOUTH TWICE A DAY NEEDED FOR PAIN SOLD: 09/18/2020 [facility] 500 mg 07/02/2020 12:00:00 AM EDT tablet 3 TAKE ONE TABLET BY MOUTH EVERY DAY FOR 3 DAYS TAKE ONE TABLET BY MOUTH EVERY DAY FOR 3 DAYS SOLD: 07/03/2020 [facility] 10 mg 07/02/2020 12:00:00 AM EDT tablet 49 TAKE 6 TABLETS BY MOUTH DAILY DAYS 1-3, 5 DAYS 4-5, 4 DAYS 6-7, 3 DAYS 8-9, 2 DAYS 10-11, AND 1 DAYS 12-14 TAKE 6 TABLETS BY MOUTH DAILY DAYS 1-3, 5 DAYS 4-5, 4 DAYS 6-7, 3 DAYS 8-9, 2 DAYS 10-11, AND 1 DAYS 12-14 SOLD: 07/03/2020 [facility] 90 mcg/actuation 07/02/2020 12:00:00 AM EDT HFA aerosol inha ler 8 INHALE TWO PUFFS BY MOUTH EVERY 4 TO 6 HOURS NEEDED FOR WHEEZING INHALE TWO PUFFS BY MOUTH EVERY 4 TO 6 HOURS NEEDED FOR WHEEZING SOLD: 07/03/2020 [facility] 0.005 % 04/16/2020 12:00:00 AM EDT drops 5 INSTILL 1 DROP INTO THE RIGHT EYE AT NIGHT INSTILL 1 DROP INTO THE RIGHT EYE AT NIGHT SOLD: 04/02/2021 [facility] 0.005 % 04/16/2020 12:00:00 AM EDT drops 5 INSTILL 1 DROP INTO THE RIGHT EYE AT NIGHT INSTILL 1 DROP INTO THE RIGHT EYE AT NIGHT SOLD: 08/08/2020 [facility] 0.005 % 04/16/2020 12:00:00 AM EDT drops 5 INSTILL 1 DROP INTO THE RIGHT EYE AT NIGHT INSTILL 1 DROP INTO THE RIGHT EYE AT NIGHT SOLD: 01/02/2021 [facility] 0.005 % 04/16/2020 12:00:00 AM EDT drops 5 INSTILL 1 DROP INTO THE RIGHT EYE AT NIGHT INSTILL 1 DROP INTO THE RIGHT EYE AT NIGHT SOLD: 10/07/2020 [facility] 22.3-6.8 mg/mL 04/16/2020 12:00:00 AM EDT drops 10 INSTILL 1 DROP INTO RIGHT EYE TWO TIMES A DAY INSTILL 1 DROP INTO RIGHT EYE TWO TIMES A DAY SOLD: 11/15/2020 [facility] 22.3-6.8 mg/mL 04/16/2020 12:00:00 AM EDT drops 10 INSTILL 1 DROP INTO RIGHT EYE TWO TIMES A DAY INSTILL 1 DROP INTO RIGHT EYE TWO TIMES A DAY SOLD: 08/08/2020 [facility] dorzolamide 20 MG/ML / Timolol 5 MG/ML O phthalmic Solution Dorzolamide HCl- Timolol Mal 22.3-6.8 MG/ML Ophthalmic Solution Dorzolamide HCl-Timolol Mal 22.3- 6.8 MG/ML Ophthalmic Solution 04/14/2020 12:00:00 AM EDT aborted dorzolamide 20 MG/ML / timolol 5 MG/ML Ophthalmic Solution [facility] (Paulo Rojas MD [facility]) latanoprost 0.05 MG/ML Ophthalmic Soluti on Latanoprost 0.005% Ophthalmic Solution Latanoprost 0.005% Ophthalmic Solution 04/14/2020 12:00:00 AM EDT aborted latanoprost 0.05 MG/ ML Ophthalmic Solution [facility] (Paulo Rojas MD [facility]) atorvastatin 80 MG Oral Tablet ATORVASTATIN CALCIUM 03/17/2020 1 2:00:00 AM EDT tablet 90 TAKE ONE TABLET BY MOUTH AT BEDT MADELAINE TAKE ONE TABLET BY MOUTH AT BEDTIME SOLD: 06/22/2020 [facility] 0.25 mcg 09/13/2019 12:00:00 AM EST capsule 90 TAKE ONE CAPSULE BY MOUTH EVERY DAY TAKE ONE CAPSULE BY MOUTH EVERY DAY SOLD: 08/22/2020 [facility] 10 mg 09/13/2019 12:00:00 AM EST tablet 90 TAKE ONE TABLET BY MOUTH EVERY DAY TAKE ONE TABLET BY MOUTH EVERY DAY SOLD: 08/08/2020 [facility] latanoprost 0.05 MG/ML Ophthalmic Soluti on Latanoprost 0.005% Ophthalmic Solution Latanoprost 0.005% Ophthalmic Solution 04/24/2019 12:00:00 AM EDT 1 aborted latanoprost 0.05 MG/ ML Ophthalmic Solution [facility] (Paulo Rojas MD [facility]) dorzolamide 20 MG/ML / Timolol 5 MG/ML O phthalmic Solution Dorzolamide HCl- Timolol Mal 22.3-6.8MG/ML Ophthalmic Solution Dorzolamide HCl-Timolol Mal 22.3- 6.8MG/ML Ophthalmic Solution 04/05/2019 12:00:00 AM EDT aborted dorzolamide 20 MG/ML / timolol 5 MG/ML Ophthalmic Solution G[facility]ARO (Paulo Rojas MD [facility]) Insurance Providers Payer name Policy type / Coverage type Policy ID Covered libertarian ID Covered libertarian's relationship to wyman Policy Wyman Plan Information Silvanous [facility] Medigap Part B [id number] Self [id number] [facility] [place] [id number] 2.16.840.1.599774.3.227.99.991.22865.0 Self [id number] MEDICARE [id number] S [id number] Medicare Medicare Primary [id number] 2.0.1.687262.3.227. 99.936.90435.0 Self [id number] Medicare Medicare Primary [id number] 2.16840.1.769515.3.227. 99.936.13853.0 Self [id number] Medicare Medicare Primary [id number] 2.0.1.149306.3.227. 99.936.56437.0 Self [id number] Medicare Medicare Primary [id number] 2.16840.1.626245.3.227. 99.936.14474.0 Self [id number] Medicare Medicare Primary 2.0.1.434344.3.227.99.936.15 705.0 Self Medicare Medicare Primary [id number] 2.0.1.847960.3.227. 99.936.44980.0 Self [id number] Medicare Medicare Primary [id number] 2.840.1.555580.3.227. 99.936.65574.0 Self [id number] MEDICARE [id number] SP [id number] [id number] [place] Primary [id number] 2..1.225885.3.227.99.991.71919.0 Self [id number] [place] Medicare Primary [id number] 2.0.1.152744.3.227.99.991.54271.0 Self [id number] Medicare [place] Medicare Primary [id number] .0.1.150466.3.227.99.991.63477.0 Self 2 [id number] [facility] Medigap Part B [id number] Self [id number] [facility] Medigap Part B [id number] 2..1.018894.3.227.99 .991.53132.0 Self [id number] BS Fed Plan Medigap Part B [id number] 2.16.840.1.190362.3.227.99 .991.07860.0 Self [id number] BS Fed Plan Medigap Part B [id number] 2.16.840.1.783463.3.227.99 .991.67471.0 Self [id number] ANSI-Commercial [id number] ANSI-Medicare Part B [id number] ANSI-Medicare Part B [id number] ANSI-Commercial [id number] ANSI-Medicare Part B [id number] ANSI-Commercial [id number]-[id number] [id number]-72d5-20zr-[id number] ANSI-Commercial [id number] ANSI-Medicare Part B [id number] Medicare [place]/N[place] Medicare Primary [id number] Self [id number] Medicare [place] Medicare Primary [id number] Self [id number] ANSI-Medicare Part B [id number] ANSI-Commercial [id number]-[id number] ANSI-Commercial [id number]-[id number]-[id number]-[id number]-m6l9-[id number] ANSI-Medicare Part B [id number] BCBS Federal Plan [facility] Part B [id number] Self [id number] Medicare Natl Gov't Servi Medicare Primary [id number] Self [id number] [place] [place] [id number] S [id number] ANSI-Medicare Part B [id number] ANSI-Commercial [id number]-[id number]-[id number]-[id number] ANSI-Medicare Part B [id number] ANSI-Commercial [id number]-t7zj-[id number] ANSI-Medicare Part B [id number] ANSI-Commercial [id number]-wq155mv9vww3 ANSI-Commercial [id number]-[id number]-[id number] [id number]-yr75-2kl1-vc6c-[id number] ANSI-Medicare Part B [id number] EXCELLUS BCBS [place] [id number] S [id number] BCBS Federal Plan [facility] Part B [id number] Self [id number] Medicare Natl Gov't Servi Medicare Primary [id number] Self [id number] BS [place] [facility] Part B [id number] Self [id number] BS Fed Plan Medigap Part B [id number] Self [id number] Medicare [place] Medicare Primary [id number] Self [id number] ANSI-Medicare Part B [id number] ANSI-Commercial [id number]-[id number]-[id number] MEDICARE [id number] SP [id number] A [facility] Part B [id number] 2..840.1.936679.3.227.99.991.969440.0 Self [id number] Fed Plan [facility] Part B [id number] 2.0.1.714170.3.227.99 .991.066909.0 Self [id number] Medicare [place] Medicare Primary [id number] 2.0.1.828512.3.227.99.991.948396.0 Self [id number] ANSI-Medicare Part B [id number] ANSI-Commercial [id number]-[id number]-[id number] ANS-Medicare Part B [id number] ANSI-Commercial [id number]-[id number] Medicare [place]/[facility] Medicare Primary [id number] 2..840.1.607226.3.227.99.8646.38983.0 Self [id number] ANSI-Medicare Part B [id number] ANSI-Commercial [id number]-[id number] ANSI-Commercial 190058ig-3w6i-26hk-[id number]-[id number] ANSI-Medicare Part B [id number] ANSI-Commercial [id number]-[id number]-[id number]-zi7w7qz3kg11 ANSI-Medicare Part B [id number] BCBS Federal Plan [place] Part B [id number] .1.486522.3.227.99.1767.83443.0 Self [id number] Medicare Natl Gov't Servi Medicare Primary [id number] 2..840.1.676132.3.227.99.1767.07194.0 Self [id number] ANSI-Commercial [id number] ANSI-Medicare Part B [id number] [facility] Part B [id number] ..546274.3.227.99.936.1 5705.0 Self [id number] ANSI-Commercial [id number] ANS-Medicare Part B [id number] ANSI-Commercial [id number]-[id number]-[id number] ANSI-Medicare Part B [id number] MEDICARE C [id number] S [id number] A BS [place] [facility] Part B [id number] ..269825.3.227.99.991.070757.0 Self [id number] BS Fed Plan [facility] Part B [id number] ..211532.3.227.99 .991.439800.0 Self [id number] Medicare [place] Medicare Primary [id number] ...264937.3.227.99.991.942311.0 Self [id number] BS [place] [facility] Part B [id number] ...084587.3.227.99.991.602383.0 Self [id number] BS Fed Plan [facility] Part B [id number] ..941302.3.227.99 .991.012558.0 Self [id number] Medicare [place] Medicare Primary [id number] 2.0.1.121460.3.227.99.991.185450.0 Self [id number] [facility] FEDERAL [id number] SP [id number] [facility] Medigap Part B [id number] 2.0.1.943306.3.227.9 9.8646.90800.0 Self [id number] [facility] Medigap Part B [id number] 2.0.1.459226.3.227.99.8646.56083.0 Self [id number] Medicare [place]/NGS Medicare Primary [id number] 2.0.1.640512.3.227.99.8646.97754.0 Self [id number] BS [place] Medigap Part B [id number] 2.0.1.304728.3.227.99.991.858431.0 Self [id number] BS Fed Plan Medigap Part B [id number] 2.0.1.114839.3.227.99 .991.682207.0 Self [id number] Medicare [place] Medicare Primary [id number] 2..1.313725.3.227.99.991.964211.0 Self [id number] [facility] Medigap Part B [id number] 2.0.1.288880.3.227.9 9.8646.59244.0 Self [id number] [facility] Medigap Part B [id number] 2.0.1.853672.3.227.9 9.8646.96843.0 Self [id number] BS [place] Medigap Part B [id number] 2..1.334827.3.227.99.991.563610.0 Self [id number] BS Fed Plan Medigap Part B [id number] 2.0.1.175985.3.227.99 .991.574513.0 Self [id number] Medicare [place] Medicare Primary [id number] 2.16.840.1.486860.3.227.99.991.233581.0 Self [id number] BS [place] Medigap Part B [id number] 2.16840.1.536781.3.227.99.991.964105.0 Self [id number] BS Fed Plan Medigap Part B [id number] 2.16840.1.408539.3.227.99 .991.474407.0 Self [id number] Medicare [place] Medicare Primary [id number] 2.16.840.1.080834.3.227.99.991.747288.0 Self [id number] [employer]BS Medigap Part B [id number] Self Blue Shield Federal Medigap Part B [id number] Self Medicare [place]/[facility] Medicare Primary [id number] Self BS [place] Medigap Part B [id number] Self BS Fed Plan Medigap Part B [id number] Self Medicare [place] Medicare Primary [id number] Self BS Federal Medigap Part B [id number]36.157 05.0 Self 806 BCBS Federal Plan Medigap Part B [id number] Self Medicare [facility] Gov't Servi Medicare Primary [id number] Self BC BS [place] FEDERAL [id number] SP [id number] A MEDICARE BLUE PPO 306 [id number] SP [id number] SELF PAY ONLY [id number] SP [id number] MEDICARE BLUE PPO 306 [id number] SP [id number] BCBS FEDERAL EMPLOYEE PROGRAM [id number] SP [id number] MEDICARE [id number] SP [id number] [place] Other 0 [id number] Self 0 Medicare Part B of [facility] Other 0 [id number] Self 0 [place] Other 0 [id number] Self 0 Medicare Part B of [facility] Other 0 [id number] Self 0 MEDICARE C [id number] S [id number] BC [facility] [id number] S [id number] [place] [facility] Other 0 [id number] Self 0 Medicare Part B [place] Other 0 [id number] Self 0 [place] PART B C [id number] S [id number] ANSI-Commercial [id number] ANSI-Medicare Part B [id number] ANSI-Medicare Part B [id number] ANSI-Commercial [id number] Problems, Conditions, and Diagnoses Code Display Name Description Problem Type Effective Dates Data Source(s) I63.81 [id number] 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 Problem 08/01/2021 12:00:00 AM EDT eCW1 ([facility]) 526273954 Screening for malignant neoplasm of colo n Screening for malignant neoplasm of colon Problem 06/24/2021 12:00:00 AM EDT [facility] ([facility]) N52.35 [id number] Erectile dysfunction following radiation therapy Problem 05/05/2021 12:00:00 AM EDT eCW1 ([facility]) N39.41 09808434 Urge incontinence Problem 05/05/2021 12:00:0 0 AM EDT eCW1 ([facility]) Z96.653 [id number] Status post total bilateral knee replace ment Problem 02/11/2021 12:00:00 AM EDT eCW1 ([facility]) R32 831303318 Urinary incontinence, unspecified type Pr oblem 02/11/2021 12:00:00 AM EDT eCW1 ([facility]) 887729314 Memory impairment Memory impairment Problem 09/10 12:00:00 AM EST MEDENT ([facility] ) 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 Problem 08/13/2020 12:00:00 AM EDT eCW1 ([facility]) R41.3 181627822 Memory changes Problem 08/13/2020 12:00:00 A M EDT eCW1 ([facility]) Surgeries/Procedures Procedure Description Date Indications Data Source(s) OFFICE OUTPATIENT NEW 30 MINUTES 06/24/2021 12:00:00 A M EDT MED[facility] ([facility]) OFFICE OUTPATIENT VISIT 25 MINUTES 06/11/2021 12:00:00 AM EDT MED[facility] ([facility] ) OFFICE OUTPATIENT VISIT 25 MINUTES 05/26/2021 12:00:00 AM EDT MED[facility] ([facility] ) Intermediate Eye Exam Established Patient Intermediate Eye Exam Established Patient 02/03/2021 12:00:00 AM EDT [facility] (Mike Rojas MD [facility]) ELECTROENCEPHALOGRAM W/REC AWAKE&ASLEEP 12/11/2020 12: 00:00 AM EST MEDENT ([facility], ) ELECTROENCEPHALOGRAM W/REC AWAKE&ASLEEP 12/11/2020 12: 00:00 AM EST MED[facility] ([facility], ) Immunization: Shingrix 50mcg/0.5mL IM (Zoster) 021 12:00:00 AM EST eCW1 ([facility]) MRI BRAIN BRAIN STEM W/O CONTRAST MATERIAL 09/24/2020 12:00:00 AM EST MEDENT ([facility], ) MRI BRAIN BRAIN STEM W/O CONTRAST MATERIAL 09/24/2020 12:00:00 AM EST MEDENT ([facility], ) Immunization: Flublok Quadrivalent (18 years & older) 0.5mL IM (Influenza) 09/10/2020 12:00:00 AM EST eCW1 ([facility]) Remove Impacted Cerumen 09/09/2020 12:00:00 AM EST MEDENT ([facility], ) Spirometry 09/09/2020 12:00:00 AM EST M EDENT ([facility], ) Scodi, optic nerve with interpretation a nd report (WAIVER OF LIABILITY ON FILE (ABN)) Scodi, optic nerve with interpretation a nd report (WAIVER OF LIABILITY ON FILE (ABN)) 08/26/2020 12:00:00 AM EST [facility] ([facility]) Comprehensive eye exam established patient (Signi/Sep Eval. & Man.) Comprehensive eye exam established patient (Signi/Sep Eval. & Man.) 08/26/2020 12:00:00 AM EST [facility] (Paulo Rojas [facility]) Results ID Date Data Source [id number] 07/06/2021 10:09:00 AM EDT MEDENT ([facility] ) Name Value Range Interpretation Code Description Data Gemma rce(s) Supporting Document(s) Calcium [Moles/volume] in Serum or Plasma 8.3 mg/dL 8.8-10.2 MED[facility] ([facility]) <content>note:<nlbl:demographic_changed> </content>
<content></content> ID Date Data Source [id number] 06/08/2021 09:19:00 AM EDT MEDENT ([facility]) Name Value Range Interpretation Code Description Data Gemma rce(s) Supporting Document(s) Calcium [Moles/volume] in Serum or Plasma 7.5 mg/dL 8.8-10.2 [facility] ([facility]) <content>note:<nlbl:demographic_changed> </content>
<content></content> Calcidiol [Mass/volume] in Serum or Plasma 39.4 ng/mL 30.0-100.0 [facility] ([facility]) <content>note:<nlbl:demographic_changed> </content>
<content></content> ID Date Data Source [id number] 05/31/2021 11:44:00 PM EDT [facility] Name Value Range Interpretation Code Description Data Gemma rce(s) Supporting Document(s) SARS coronavirus 2 RNA [Presence] in Res piratory specimen by JASPREET with probe detection NEGATIVE [facility] This lab was ordered by [facility] a nd reported by [facility]. ID Date Data Source [id number] 04/06/2021 08:51:00 PM EDT [facility] Name Value Range Interpretation Code Description Data Gemma rce(s) Supporting Document(s) SARS coronavirus 2 RNA [Presence] in Res piratory specimen by JASPREET with probe detection NEGATIVE [facility] This lab was ordered by [facility] a nd reported by [facility]. ID Date Data Source [id number] 11/04/2020 12:00:00 AM EST [facility] Name Value Range Interpretation Code Description Data Gemma rce(s) Supporting Document(s) SARS coronavirus 2 Ag Negative [facility] This lab was ordered by [facility] and reported by [facility]. ID Date Data Source [id number] 10/03/2020 12:00:00 AM EST [facility] Name Value Range Interpretation Code Description Data Gemma rce(s) Supporting Document(s) SARS-CoV2 Rapid Antigen [facility] This lab was reported by [facility]. ID Date Data Source [id number] 09/24/2020 10:19:00 AM EST [facility] ([facility]) Name Value Range Interpretation Code Description Data Gemma rce(s) Supporting Document(s) Thyroid Stimulating Hormone 3.340 uIU/ML 0.358-3.740 [facility] ([facility]) Free T4 1.48 ng/dL 0.76-1.46 [facility] ([facility]) ID Date Data Source [id number] 09/10/2020 11:25:00 AM EST [facility] ([facility]) Name Value Range Interpretation Code Description Data Gemma rce(s) Supporting Document(s) Antinuclear Antibodies Direct Laboratory test result [facility] ([facility]) Performed at: [facility] [id number] [employer] [employer] Operator: Morteza Ash MD, Phone: [phone] Performed at: [facility] [id number] [employer] [employer] Operator: Gely Zarate MD, Phone: [phone] ID Date Data Source [id number] 09/10/2020 11:25:00 AM EST [facility] ([facility] ) Name Value Range Interpretation Code Description Data Gemma rce(s) Supporting Document(s) Thiamine [Mass/volume] in Blood 144.0 nmol/L 66.5-200.0 [facility] ([facility] ) Specimen Comment: Test(s) 300711-[id number] E(Alpha Tocopherol); 356193- Specimen Comment: Vitamin E(Gamma Tocopherol); 208039-Wpghtiv B6; 963572- Specimen Comment: Vit. B1, Whole Blood Specimen Comment: was developed and its performance characteristics Specimen Comment: determined by [facility]. It has not been cleared or approved Specimen Comment: by the Food and Drug Administration. Pyridoxine [Mass/volume] in Serum or Plasma 14.5 ug/L 5.3-46.7 [facility] ([facility] ) Specimen Comment: Test(s) [id number]-Wfvzaba E(Alpha Tocopherol); 146849- Specimen Comment: Vitamin E(Gamma Tocopherol); 374003-Nebierf B6; 767494- Specimen Comment: Vit. B1, Whole Blood Specimen Comment: was developed and its performance characteristics Specimen Comment: determined by [facility]. It has not been cleared or approved Specimen Comment: by the Food and Drug Administration. ID Date Data Source [id number] 09/10/2020 11:25:00 AM EST [facility] ([facility] ) Name Value Range Interpretation Code Description Data Gemma rce(s) Supporting Document(s) Vitamin E(Alpha Tocopherol) 9.3 mg/L 9.0-29.0 [facility] ([facility]) Vitamin E(Gamma Tocopherol) 1.4 mg/L 0.5-4.9 [facility] ([facility] ) Reference intervals for alpha and gamma- tocopherol determined from National Health and Nutrition Examination Survey, 2973-1511. Individuals with alpha-tocopherol levels less than 5.0 mg/L are considered vitamin E deficient. ID Date Data Source [id number] 09/10/2020 11:25:00 AM EST [facility] ([facility] ) Name Value Range Interpretation Code Description Data Gemma rce(s) Supporting Document(s) Erythrocyte sedimentation rate by 2H Westergren method 15 mm/hr 0-2 0 MEDENT ([facility], ) ID Date Data Source [id number] 09/10/2020 11:25:00 AM EST MEDENT ([facility]) Name Value Range Interpretation Code Description Data Gemma rce(s) Supporting Document(s) White Blood Count 7.5 10 4.0-10.0 MEDENT ([facility]) Red Blood Count 4.51 10 4.30-6.10 MEDENT ([facility]) Hematocrit 42.3 % 42.0-52.0 [facility] Hemoglobin 13.0 g/dL 13.5-17.5 MEDENT ([facility]) Mean Corpuscular HGB Conc 30.7 g/dL 32.0-36.5 MEDENT ([facility]) Mean Corpuscular Volume 93.8 fl 80.0-96.0 M EDENT ([facility]) Mean Corpuscular Hemoglobin 28.8 pg 27.0-33.0 MEDENT ([facility]) Red Cell Distribution Width 13.8 % 11.5-14.5 MEDENT ([facility]) Platelet Count, Automated 209 10 150-450 MEDENT ([facility]) Neutrophils % 65.0 % 36.0-66.0 MEDENT ([facility]) [place] % 9.6 % 0.0-5.0 MEDENT ([facility]) Lymph % 18.9 % 24.0-44.0 MEDENT [facility] Baso % 0.4 % 0.0-1.0 MEDENT [facility] Eos % 5.8 % 0.0-3.0 MEDENT ([facility]) Immature Granulocyte % 0.3 % 0-3.0 MED[facility] Lymph # 1.4 10 1.5-5.0 MEDENT ([facility]) Nucleated Red Blood Cell % 0.0 % 0-0 MED ENT ([facility]) Neutrophils # 4.9 10 1.5-8.5 MEDENT ([facility]) Eos # 0.4 10 0.0-0.5 MEDENT ([facility]) Baso # 0.0 10 0.0-0.2 [facility] [place] # 0.7 10 0.0-0.8 [facility] ID Date Data Source [id number] 09/10/2020 11:25:00 AM EST [facility] Name Value Range Interpretation Code Description Data Gemma rce(s) Supporting Document(s) Thyroxine (T4) free [Mass/volume] in Serum or Plasma 1.42 ng/dL 0.76- 1.46 [facility] <content>note:<nlbl:demographic_changed> </content>
<content></content> Thyrotropin [Units/volume] in Serum or Plasma 5.490 uIU/ML 0.358-3.74 0 [facility] ([facility]) <content>note:<nlbl:demographic_changed> </content>
<content></content> Folate [Mass/volume] in Serum or Plasma 17.4 ng/mL [facility] ([facility]) FOLATE NORMAL RANGE NORMAL GREATER THAN 5.4 NG/ML INDETERMINATE 3.4-5.4 NG/ML DEFICIENT LESS THAN 3.4 NG/ML Cobalamin (Vitamin B12) [Mass/volume] in Serum or Plasma 1378 pg/mL 2 47-911 [facility] ([facility]) VITAMIN B12 NORMAL RANGE NORMAL 247 - 911 PG/ML INDETERMINATE 211 - 246 PG/ML DEFICIENT LESS THAN 211 PG/ML Reagin Ab [Presence] in Serum by RPR Laboratory test result [facility] ([facility]) <content>note:<nlbl:demographic_changed> </content>
<content></content> Rheumatoid factor [Units/volume] in Serum or Plasma Laboratory test result [facility] ([facility]) <content>note:<nlbl:demographic_changed> </content>
<content></content> ID Date Data Source [id number] 09/10/2020 11:25:00 AM EST [facility] Name Value Range Interpretation Code Description Data Gemma rce(s) Supporting Document(s) Blood Urea Nitrogen 24 mg/dL 7-18 MEDENT ([facility]) Glucose, Fasting 81 mg/dL 70-100 MEDENT ([facility]) Creatinine For GFR 1.11 mg/dL 0.70-1.30 MEDENT ([facility]) Glomerular Filtration Rate Laboratory test result [facility] ([facility]) <content>Units are mL/min/1.73 m2</content>
<content></content>
<content>Chronic Kidney Disease Staging per NKF:</content>
<content></content>
<content>Stage I & II GFR >=60 Normal to Mildly Decreased</content>
<content>Stage III GFR 30- 59 Moderately Decreased</content>
<content>Stage IV GFR 15-29 Severely Decreased</content>
<content>Stage V GFR <15 Very Little GFR Left</content>
<content>ESRD GFR <15 on [employer]</content>
<content></content> Sodium Level 142 meq/L 136-145 MEDENT ([facility]) Potassium Serum 4.1 meq/L 3.5-5.1 MEDENT ([facility]) Chloride Level 106 meq/L 98-107 MEDENT ([facility]) Carbon Dioxide Level 32 meq/L 21-32 MEDENT ([facility]) Calcium Level 8.4 mg/dL 8.8-10.2 MEDENT ([facility]) Anion Gap 4 meq/L 8-16 MEDENT ([facility]) Ast/Sgot 26 U/L 7-37 MEDENT ([facility]) Alkaline Phosphatase 129 U/L 45-117 MEDENT ([facility]) Alt/SGPT 23 U/L 12-78 MEDENT ([facility]) Total Protein 6.4 GM/DL 6.4-8.2 MEDENT ([facility]) Albumin 3.4 GM/DL 3.2-5.2 MEDENT ([facility]) Bilirubin,Total 1.0 mg/dL 0.2-1.0 MEDENT ([facility]) Albumin/Globulin Ratio 1.1 MEDENT ([facility], ) ID Date Data Source [id number] 09/09/2020 01:45:00 PM EST MEDENT ([facility], ) Name Value Range Interpretation Code Description Data Gemma rce(s) Supporting Document(s) PDFReport Laboratory test result MEDENT ([facility], ) FVC-Pred 3.41 L MEDENT ([facility], ) FVC-Pre 2.72 L MEDENT ([facility], ) FVC-LLN 2.55 L MEDENT ([facility]) Fev1-Pred 2.37 L MEDENT ([facility]) FVC-%Pred-Pre 79 L MEDENT ([facility]) Fev1-Pre 1.75 L MEDENT ([facility]) Fev1-%Pred-Pre 73 L MEDENT ([facility], ) Fev1-LLN 1.65 L MEDENT ([facility]) Fev6-Pred 3.14 L MEDENT ([facility]) Fev6-Pre 2.72 L MEDENT ([facility]) Fev6-LLN 2.31 L MEDENT ([facility]) Fev6-%Pred-Pre 86 L MEDENT ([facility], ) Nxm2mly-Nqsv 71 % MEDENT ([facility]) Dvd0alo-Dup 64 % MEDENT ([facility]) Sbn1rxy-%Pred-Pre 90 % MEDENT ([facility]) Smd9zpc-Kfdf 92 % MEDENT ([facility]) Kly6adi-Fdi 100 % MEDENT ([facility]) Vsk6htn-UWM 61 % MEDENT ([facility]) FEFMax-Pred 6.18 L/E/sec MEDENT ([facility], ) Qzi0djh-%Pred-Pre 108 % MEDENT ([facility]) FEFMax-Pre 5.43 L/E/sec MEDENT ([facility]) FEFMax-LLN 4.06 L/E/sec MEDENT ([facility]) FEFMax-%Pred-Pre 87 L/E/sec MEDENT ([facility]) [id number]-Rffr 1.55 L/E/sec MEDENT ([facility]) Uju2778-Cfj 0.93 L/E/sec MEDENT ([facility]) Xhv2006-%Pred-Pre 59 L/E/sec MEDENT ([facility]) [id number]-MKU 0.08 L/E/sec MEDENT ([facility]) ExpTime-Pre 6.07 sec MEDENT ([facility]) Dvf2nkg3-Ige 64 % MEDENT ([facility]) Zqk0oze0-Dktd 76 % MEDENT ([facility]) Vxy6prm5-IFC 67 % MEDENT ([facility]) Xem4iym7-%Pred-Pre 84 % MEDENT ([facility]) ID Date Data Source [id number] 07/30/2020 08:40:00 AM EDT MEDENT ([facility]) Name Value Range Interpretation Code Description Data Gemma rce(s) Supporting Document(s) Thyroid Stimulating Hormone 17.900 uIU/ML 0.358-3.740 MEDENT ([facility]) Free T4 1.30 ng/dL 0.76-1.46 MEDENT ([facility]) Procedure Social History Code Duration Value Status Description Data Source(s ) Smoking 08/01/2021 12:00:00 AM EDT Former Smoker completed Former Smoker eCW1 ([facility]) Smoking 07/19/2021 04:17:14 PM EDT Ex-smoker (finding) complet ed Ex-smoker (finding) [facility]UMAR[facility] ([facility] Ro[facility]) Smoking 06/30/2021 08:19:14 AM EDT Ex-smoker (finding) complet ed Ex-smoker (finding) [facility] ([facility] Rojas [facility]) Smoking 06/24/2021 12:00:00 AM EDT Former Smoker completed Former Smoker eCW1 ([facility]) Smoking 06/24/2021 12:00:00 AM EDT Former Smoker completed Former Smoker eCW1 ([facility]) Smoking 06/16/2021 12:00:00 AM EDT Former Smoker completed Former Smoker eCW1 ([facility]) Smoking 06/11/2021 12:00:00 AM EDT Patient is a former smoker completed Patient is a former smoker MEDENT ([facility]) Smoking 05/27/2021 12:00:00 AM EDT Former Smoker completed Former Smoker eCW1 ([facility]) Smoking 05/27/2021 12:00:00 AM EDT Former Smoker completed Former Smoker eCW1 ([facility]) Smoking 05/05/2021 12:00:00 AM EDT Former Smoker completed Former Smoker eCW1 ([facility]) Smoking 05/05/2021 12:00:00 AM EDT Former Smoker completed Former Smoker eCW1 ([facility]) Smoking 05/05/2021 12:00:00 AM EDT Former Smoker completed Former Smoker eCW1 ([facility]) Smoking 05/03/2021 12:00:00 AM EDT Former Smoker completed Former Smoker eCW1 ([facility]) Smoking 04/09/2021 12:00:00 AM EDT Former Smoker completed Former Smoker eCW1 ([facility]) Smoking 03/10/2021 12:00:00 AM EDT Patient is a former smoker completed Patient is a former smoker MEDENT ([facility], [facility]) Smoking 03/08/2021 12:00:00 AM EDT Former Smoker completed Former Smoker eCW1 ([facility]) Smoking 02/17/2021 12:00:00 AM EDT Patient is a former smoker completed Patient is a former smoker MEDENT ([facility], ) Smoking 11/13/2020 12:00:00 AM EST Former Smoker completed Former Smoker eCW1 ([facility]) Smoking 11/13/2020 12:00:00 AM EST Former Smoker completed Former Smoker eCW1 ([facility]) Smoking 11/13/2020 12:00:00 AM EST Former Smoker completed Former Smoker eCW1 ([facility]) Smoking 10/15/2020 12:00:00 AM EST Former Smoker completed Former Smoker eCW1 ([facility]) Smoking 10/15/2020 12:00:00 AM EST Former Smoker completed Former Smoker eCW1 ([facility]) Smoking 10/15/2020 12:00:00 AM EST Former Smoker completed Former Smoker eCW1 ([facility]) Smoking 10/15/2020 12:00:00 AM EST Former Smoker completed Former Smoker eCW1 ([facility]) Smoking 10/15/2020 12:00:00 AM EST Former Smoker completed Former Smoker eCW1 ([facility]) Smoking 08/13/2020 12:00:00 AM EDT Former Smoker completed Former Smoker eCW1 ([facility]) Smoking 08/13/2020 12:00:00 AM EDT Former Smoker completed Former Smoker eCW1 ([facility]) Smoking 08/13/2020 12:00:00 AM EDT Former Smoker completed Former Smoker eCW1 ([facility]) Smoking 08/13/2020 12:00:00 AM EDT Former Smoker completed Former Smoker eCW1 ([facility]) Vital Signs ID Date Data Source [id number] Name Value Range Interpretation Code Description Data Source(s) Body weight 206.2 [lb_av] 206.2 [lb_av] eCW1 ([facility]) Body weight 93.53 kg 93.53 kg W1 ([facility]) Body mass index (BMI) [Ratio] 33.28 kg/m2 33.28 kg/m2 W1 ([facility]) Body height 66 [in_i] 66 [in_i] W1 ([facility]) Respiratory rate 18 /min 18 /min W1 ([facility]) Body temperature 97.1 [degF] 97.1 [degF] eCW1 ( [facility]) Systolic blood pressure 134 mm[Hg] 134 mm[Hg] e CW1 ([facility]) Diastolic blood pressure 82 mm[Hg] 82 mm[Hg] eCW1 ([facility]) Heart rate 82 /min 82 /min eCW1 ([facility]) Body temperature 96.4 [degF] 96.4 [degF] MEDENT ([facility]) Body height 66 [in_i] 66 [in_i] [facility] 5'6" Body weight 200.00 [lb_av] 200.00 [lb_av] MEDEN T ([facility]) Systolic blood pressure 122 mm[Hg] 122 mm[Hg] M EDENT ([facility]) Diastolic blood pressure 69 mm[Hg] 69 mm[Hg] MEDENT ([facility]) Heart rate 71 /min 71 /min [facility] ([facility]) Body mass index (BMI) [Ratio] 32.3 kg/m2 32.3 k g/m2 MEDENT ([facility]) Body weight 90.720 kg 90.720 kg MEDENT ([facility]) Body weight 202 [lb_av] 202 [lb_av] eCW1 ([facility]) Body weight 91.63 kg 91.63 kg eCW1 ([facility]) Body height 66 [in_i] 66 [in_i] eCW1 ([facility]) Body mass index (BMI) [Ratio] 32.60 kg/m2 32.60 kg/m2 W1 ([facility]) Heart rate 66 /min 66 /min eCW1 ([facility]) Respiratory rate 17 /min 17 /min eCW1 ([facility]) Body temperature 95.2 [degF] 95.2 [degF] eCW1 ( [facility]) Systolic blood pressure 131 mm[Hg] 131 mm[Hg] e CW1 ([facility]) Diastolic blood pressure 71 mm[Hg] 71 mm[Hg] eCW1 ([facility]) Systolic blood pressure 110 mm[Hg] 110 mm[Hg] M EDENT ([facility]) Diastolic blood pressure 72 mm[Hg] 72 mm[Hg] MEDENT ([facility]) Heart rate 68 /min 68 /min MEDENT ([facility]) Body height 66 [in_i] 66 [in_i] MEDENT ([facility] ) 5'6" Body weight 205.19 [lb_av] 205.19 [lb_av] MEDEN T ([facility] ) Body mass index (BMI) [Ratio] 33.1 kg/m2 33.1 k g/m2 MEDENT ([facility] ) Body weight 202.0 [lb_av] 202.0 [lb_av] eCW1 ([facility]) Body weight 91.63 kg 91.63 kg eCW1 ([facility]) Body height 66 [in_i] 66 [in_i] eCW1 ([facility]) Body mass index (BMI) [Ratio] 32.60 kg/m2 32.60 kg/m2 eCW1 ([facility]) Heart rate 77 /min 77 /min eCW1 ([facility]) Respiratory rate 18 /min 18 /min eCW1 ([facility]) Body temperature 97.3 [degF] 97.3 [degF] eCW1 ( [facility]) Systolic blood pressure 138 mm[Hg] 138 mm[Hg] e CW1 ([facility]) Diastolic blood pressure 76 mm[Hg] 76 mm[Hg] eCW1 ([facility]) Body height 66 [in_i] 66 [in_i] MEDENT ([facility] ) 5'6" Body weight 201.00 [lb_av] 201.00 [lb_av] MEDEN T ([facility] ) Body mass index (BMI) [Ratio] 32.4 kg/m2 32.4 k g/m2 MEDENT ([facility] ) Oxygen saturation in Arterial blood by Pulse oximetry 98 % 98 % MEDENT ([facility] ) Systolic blood pressure 142 mm[Hg] 142 mm[Hg] M EDENT ([facility] ) Diastolic blood pressure 70 mm[Hg] 70 mm[Hg] MEDENT ([facility] ) Heart rate 62 /min 62 /min MEDENT ([facility] ) Body weight 203.2 [lb_av] 203.2 [lb_av] eCW1 ([facility]) Body height 66 [in_i] 66 [in_i] eCW1 ([facility]) Body mass index (BMI) [Ratio] 32.79 kg/m2 32.79 kg/m2 eCW1 ([facility]) Heart rate 61 /min 61 /min eCW1 ([facility]) Respiratory rate 18 /min 18 /min eCW1 ([facility]) Body temperature 96.1 [degF] 96.1 [degF] eCW1 ( [facility]) Systolic blood pressure 118 mm[Hg] 118 mm[Hg] e CW1 ([facility]) Diastolic blood pressure 62 mm[Hg] 62 mm[Hg] eCW1 ([facility]) Body weight 200.6 [lb_av] 200.6 [lb_av] eCW1 ([facility]) Body height 66 [in_i] 66 [in_i] eCW1 ([facility]) Body mass index (BMI) [Ratio] 32.37 kg/m2 32.37 kg/m2 eCW1 ([facility]) Heart rate 95 /min 95 /min eCW1 ([facility]) Respiratory rate 18 /min 18 /min eCW1 ([facility]) Body temperature 97.4 [degF] 97.4 [degF] eCW1 ( [facility]) Systolic blood pressure 134 mm[Hg] 134 mm[Hg] e CW1 ([facility]) Diastolic blood pressure 68 mm[Hg] 68 mm[Hg] eCW1 ([facility]) Heart rate 95 /min 95 /min MEDENT ([facility], [facility]) Oxygen saturation in Arterial blood by Pulse oximetry 100 % 100 % MEDENT ([facility], [facility]) Body temperature 97.6 [degF] 97.6 [degF] MEDENT ([facility], [facility]) Body weight 190.00 [lb_av] 190.00 [lb_av] MEDEN T ([facility], [facility]) Body height 67 [in_i] 67 [in_i] MEDENT ([facility], [facility]) 5'7" Body mass index (BMI) [Ratio] 29.8 kg/m2 29.8 k g/m2 MEDENT ([facility], [facility]) Respiratory rate 14 /min 14 /min MEDENT ( [facility]) Systolic blood pressure 189 mm[Hg] 189 mm[Hg] M EDENT ([facility], [facility]) manual 160/88 Diastolic blood pressure 93 mm[Hg] 93 mm[Hg] MEDENT ([facility], [facility]) manual 160/88 Systolic blood pressure 170 mm[Hg] 170 mm[facility]Hg[facility] Diastolic blood pressure 84 mm[Hg] 84 mm[Hg] [facility] Heart rate 59 /min 59 /min [facility] ([facility]) Oxygen saturation in Arterial blood by Pulse oximetry 96 % 96 % [facility] ([facility]) Respiratory rate 16 /min 16 /min [facility] ( [facility]) Body temperature 96.9 [degF] 96.9 [degF] [facility] ([facility]) Body height 67 [in_i] 67 [in_i] [facility] ([facility]) 5'7" Body weight 202.50 [lb_av] 202.50 [lb_av] [facility] Body mass index (BMI) [Ratio] 31.7 kg/m2 31.7 k g/m2 [facility] ([facility]) [place] body weight 148 [lb_av] 148 [lb_av] [facility] Body weight 91.854 kg 91.854 kg [facility] ([facility]) Body surface area Derived from formula 2.03 m2 2.03 m2 [facility] ([facility]) Body weight 203 [lb_av] 203 [lb_av] W1 ([facility]) Body height 66 [in_i] 66 [in_i] eCW1 ([facility]) Body mass index (BMI) [Ratio] 32.76 kg/m2 32.76 kg/m2 [facility] ([facility]) Heart rate 82 /min 82 /min eCW1 ([facility]) Respiratory rate 18 /min 18 /min eCW1 ([facility]) Body temperature 97.3 [degF] 97.3 [degF] eCW1 ( [facility]) Systolic blood pressure 142 mm[Hg] 142 mm[Hg] e CW1 ([facility]) Diastolic blood pressure 80 mm[Hg] 80 mm[Hg] eCW1 ([facility]) Respiratory rate 18 /min 18 /min MEDENT ( [facility] [facility], [facility]) Body temperature 97.0 [degF] 97.0 [degF] MEDENT ([facility], [facility]) Body mass index (BMI) [Ratio] 29.8 kg/m2 29.8 k g/m2 MEDENT ([facility], [facility]) Systolic blood pressure 148 mm[Hg] 148 mm[Hg] M EDENT ([facility], [facility]) Diastolic blood pressure 100 mm[Hg] 100 mm[Hg] MEDENT ([facility], [facility]) Heart rate 74 /min 74 /min MEDENT ([facility], [facility]) Oxygen saturation in Arterial blood by Pulse oximetry 98 % 98 % MEDENT ([facility], [facility]) Body weight 190.00 [lb_av] 190.00 [lb_av] MEDEN T ([facility], [facility]) Body height 67 [in_i] 67 [in_i] MEDENT ([facility], [facility]) 5'7" Body height 67 [in_i] 67 [in_i] MEDENT ([facility], ) 5'7" Body weight 189.00 [lb_av] 189.00 [lb_av] MEDEN T ([facility], ) Body mass index (BMI) [Ratio] 29.6 kg/m2 29.6 k g/m2 MEDENT ([facility], ) [place] body weight 148 [lb_av] 148 [lb_av] MEDEN T ([facility], ) Respiratory rate 12 /min 12 /min MEDENT ( [facility], ) Respiratory rate 18 /min 18 /min eCW1 ([facility]) Body weight 203.6 [lb_av] 203.6 [lb_av] eCW1 ([facility]) Body height 66 [in_i] 66 [in_i] eCW1 ([facility]) Body mass index (BMI) [Ratio] 32.86 kg/m2 32.86 kg/m2 eCW1 ([facility]) Heart rate 89 /min 89 /min eCW1 ([facility]) Body temperature 97.1 [degF] 97.1 [degF] eCW1 ( [facility]) Systolic blood pressure 136 mm[Hg] 136 mm[Hg] e CW1 ([facility]) Diastolic blood pressure 80 mm[Hg] 80 mm[Hg] eCW1 ([facility]) Systolic blood pressure 130 mm[Hg] 130 mm[Hg] e CW1 ([facility]) Diastolic blood pressure 76 mm[Hg] 76 mm[Hg] eCW1 ([facility]) Body weight 197 [lb_av] 197 [lb_av] eCW1 ([facility]) Body height 66 [in_i] 66 [in_i] eCW1 ([facility]) Body mass index (BMI) [Ratio] 31.79 kg/m2 31.79 kg/m2 eCW1 ([facility]) Heart rate 98 /min 98 /min eCW1 ([facility]) Respiratory rate 17 /min 17 /min eCW1 ([facility]) Body temperature 96.6 [degF] 96.6 [degF] eCW1 ( [facility]) Systolic blood pressure 110 mm[Hg] 110 mm[Hg] M EDENT ([facility], [facility]) Diastolic blood pressure 70 mm[Hg] 70 mm[Hg] MEDENT ([facility], [facility]) Heart rate 88 /min 88 /min MEDENT ([facility], [facility]) Respiratory rate 20 /min 20 /min MEDENT ( [facility], [facility]) Oxygen saturation in Arterial blood by Pulse oximetry 93 % 93 % MEDENT ([facility]) Body temperature 97.3 [degF] 97.3 [degF] MEDENT ([facility]) Body height 67 [in_i] 67 [in_i] MEDENT ([facility]) 5'7" Body mass index (BMI) [Ratio] 29.8 kg/m2 29.8 k g/m2 MEDENT ([facility]) Body weight 190.00 [lb_av] 190.00 [lb_av] MEDEN T ([facility]) Body weight 200.00 [lb_av] 200.00 [lb_av] MEDEN T ([facility], ) Respiratory rate 12 /min 12 /min [facility] ( [facility]) Body height 67 [in_i] 67 [in_i] [facility] ([facility]) 5'7" Body mass index (BMI) [Ratio] 31.3 kg/m2 31.3 k g/m2 [facility] ([facility]) [place] body weight 148 [lb_av] 148 [lb_av] MEDEN T ([facility]) Systolic blood pressure 128 mm[Hg] 128 mm[Hg] [facility] ([facility]) Diastolic blood pressure 80 mm[Hg] 80 mm[Hg] [facility] ([facility]) Heart rate 60 /min 60 /min [facility] ([facility]) Oxygen saturation in Arterial blood by Pulse oximetry 97 % 97 % [facility] ([facility]) Room Air Body height 67 [in_i] 67 [in_i] [facility] ([facility]) 5'7" Body weight 208.00 [lb_av] 208.00 [lb_av] MEDEN T ([facility]) Body mass index (BMI) [Ratio] 32.6 kg/m2 32.6 k g/m2 [facility] ([facility]) [place] body weight 148 [lb_av] 148 [lb_av] MEDEN T ([facility]) Body weight 94.349 kg 94.349 kg [facility] ([facility]) Body surface area Derived from formula 2.06 m2 2.06 m2 MEDENT ([facility]) Body height 67 [in_i] 67 [in_i] MEDENT ([facility]) 5'7" Body weight 210.00 [lb_av] 210.00 [lb_av] MEDEN T ([facility]) Body mass index (BMI) [Ratio] 32.9 kg/m2 32.9 k g/m2 MEDENT ([facility]) [place] body weight 148 [lb_av] 148 [lb_av] MEDEN T ([facility]) Body weight 95.256 kg 95.256 kg [facility] ([facility]) Body temperature 97.1 [degF] 97.1 [degF] MEDENT ([facility] ) Body height 67 [in_i] 67 [in_i] MEDENT ([facility] ) 5'7" Body weight 211.00 [lb_av] 211.00 [lb_av] MEDEN T ([facility]) Body mass index (BMI) [Ratio] 33.0 kg/m2 33.0 k g/m2 MEDENT ([facility]) Body weight 202 [lb_av] 202 [lb_av] eCW1 ([facility]) Body height 66 [in_i] 66 [in_i] eCW1 ([facility]) Body mass index (BMI) [Ratio] 32.60 kg/m2 32.60 kg/m2 eCW1 ([facility]) Heart rate 81 /min 81 /min eCW1 ([facility]) Respiratory rate 18 /min 18 /min eCW1 ([facility]) Body temperature 97 [degF] 97 [degF] eCW1 ([facility]) Systolic blood pressure 142 mm[Hg] 142 mm[Hg] e CW1 ([facility]) Diastolic blood pressure 80 mm[Hg] 80 mm[Hg] eCW1 ([facility]) Systolic blood pressure 126 mm[Hg] 126 mm[Hg] M EDENT ([facility] ) Diastolic blood pressure 80 mm[Hg] 80 mm[Hg] MEDENT ([facility] ) Heart rate 77 /min 77 /min [facility] Body temperature 96.3 [degF] 96.3 [degF] MEDENT ([facility]) Body height 66 [in_i] 66 [in_i] MEDENT ([facility]) 5'6" Body weight 203.25 [lb_av] 203.25 [lb_av] MEDEN T ([facility]) Body mass index (BMI) [Ratio] 32.8 kg/m2 32.8 k g/m2 MEDENT ([facility]) Oxygen saturation in Arterial blood by Pulse oximetry 98 % 98 % [facility] Patient Treatment Plan of Care Planned Activity Planned Date Details Description Data Source (s) Meclizine Hydrochloride 25 MG Chewable Tablet 08/01/2021 12:00:00 A M EDT eCW1 ([facility]) latanoprost 0.05 MG/ML Ophthalmic Solution 07/05/2021 12:00:00 AM E DT GUMAR[place] ([facility]) latanoprost 0.05 MG/ML Ophthalmic Solution 06/29/2021 12:00:00 AM E DT [place] ([facility]) Aspirin 81 MG Chewable Tablet 06/01/2021 12:00:00 AM EDT eCW1 ([facility]) sildenafil 50 MG Oral Tablet 04/09/2021 12:00:00 AM EDT eCW1 ([facility]) sildenafil 50 MG Oral Tablet 04/09/2021 12:00:00 AM EDT eCW1 ([facility]) Paroxetine 20 MG Oral Tablet [Paxil] 02/11/2021 12:00:00 AM EDT eCW1 ([facility]) dorzolamide 20 MG/ML / Timolol 5 MG/ML Ophthalmic Solu tion 08/26/2020 12:00:00 AM EST [facility]UMARO ([facility]) latanoprost 0.05 MG/ML Ophthalmic Solution 08/26/2020 12:00:[address] [place] ([facility]) dorzolamide 20 MG/ML / Timolol 5 MG/ML Ophthalmic Solu tion 04/14/2020 12:00:00 AM EDT [place]UM[place] ([facility]) latanoprost 0.05 MG/ML Ophthalmic Solution 04/14/2020 12:00:00 AM E DT [place] ([facility]) latanoprost 0.05 MG/ML Ophthalmic Solution 04/24/2019 12:00:00 AM E DT [place] ([facility]) dorzolamide 20 MG/ML / Timolol 5 MG/ML Ophthalmic Solu tion 04/05/2019 12:00:00 AM EDT [place]UMARO ([facility])
[2021-08-18] MEDS ORDERED: propofoL 200 MG/20 ML VIAL As Ordered ONE (11:48)
[2021-08-18] MEDS ORDERED: LIDOCAINE 2% 100MG/5ML SDV (FOR ANES.) As Ordered ONE (11:48)
--- NOTE | 2021-08-18 12:56 | ROOR ---
Patient Name: Bebeto Samano Procedure Date: 08/18/2021 12:27 PM Date of : 1935 Age: 86 Room: [facility] Gender: Male Note Status: Finalized Procedure: Total Colonoscopy to Cecum + Hot Snare Polypectomy + Hemoclip Indications: Screening for colorectal malignant neoplasm Providers: Gelacio Tony MD Referring MD: JASWINDER BEY MD Requesting Provider: Medicines: Monitored Anesthesia Care Complications: No immediate complications. Procedure: Pre-Anesthesia Assessment: - The heart rate, respiratory rate, oxygen saturations, blood pressure, adequacy of pulmonary ventilation, and response to care were monitored throughout the procedure. The Colonoscope was introduced through the anus and advanced to the cecum, identified by appendiceal orifice and ileocecal valve. The colonoscopy was performed without difficulty. The patient tolerated the procedure well. The quality of the bowel preparation was good. Findings: The perianal and digital rectal examinations were normal. Non-bleeding internal hemorrhoids were found during retroflexion. The hemorrhoids were small and Grade I (internal hemorrhoids that do not prolapse). Multiple small and large-mouthed diverticula were found in the recto-sigmoid colon, sigmoid colon and descending colon. A medium polyp was found in the rectum. The polyp was semi-pedunculated. The polyp was removed with a hot snare. Resection and retrieval were complete. To prevent bleeding after the polypectomy, one hemostatic clip was successfully placed. There was no bleeding at the end of the procedure. The exam was otherwise without abnormality on direct and retroflexion views. Impression: - Non-bleeding internal hemorrhoids. - Diverticulosis in the recto-sigmoid colon, in the sigmoid colon and in the descending colon. - One medium polyp in the rectum, removed with a hot snare. Resected and retrieved. Clip was placed. - The examination was otherwise normal on direct and retroflexion views. - The exam was otherwise normal to the cecum. Recommendation: - Patient has a contact number available for emergencies. The signs and symptoms of potential delayed complications were discussed with the patient. Return to normal activities tomorrow. Written discharge instructions were provided to the patient. - High fiber diet. - Discharge patient to home. - Continue present medications. - Await pathology results. - Telephone GI clinic for pathology results in 1 week. - Repeat colonoscopy for surveillance based on pathology results. - Return to referring physician. - The findings and recommendations were discussed with the patient. Procedure Code(s): --- Professional --- 47118, Colonoscopy, flexible; with removal of tumor(s), polyp(s), or other lesion(s) by snare technique Diagnosis Code(s): --- Professional --- Z12.11, Encounter for screening for malignant neoplasm of colon K64.0, First degree hemorrhoids K62.1, Rectal polyp K57.30, Diverticulosis of large intestine without perforation or abscess without bleeding CPT copyright 2019 [employer]. All rights reserved. The codes documented in this report are preliminary and upon intake nurse review may be revised to meet current compliance requirements. Gelacio Tony MD Gelacio Tony MD 08/18/2021 12:56:10 PM Electronically signed by Gelacio Tony MD Number of Addenda: 0 Note Initiated On: 08/18/2021 12:27 PM Estimated Blood Loss: Estimated blood loss: none.
[2021-08-18 13:10] VITALS: BP 133/64
== END 2021-08-18 13:55 | disposition home or self-care (01) ==
LOC: M OPP 11:15
PROVIDERS: ATTEND Internal Medicine Gastroenterology
DX: Z12.11 Encounter for screening for malignant neoplasm of colon (principal); K57.30 Diverticulosis of large intestine without perforation or abscess without bleeding; K62.1 Rectal polyp; K64.0 First degree hemorrhoids; Z79.82 Long term (current) use of aspirin; Z79.899 Other long term (current) drug therapy; Z85.850 Personal history of malignant neoplasm of thyroid; Z85.46 Personal history of malignant neoplasm of prostate; Z86.73 Personal history of transient ischemic attack (TIA), and cerebral infarction without residual deficits; Z92.3 Personal history of irradiation; Z87.891 Personal history of nicotine dependence

== ENCOUNTER → 2021-10-05 | Outpatient (CLI) | payer MEDICARE ==
[~2021-10-05] MED LIST changes: -NS 1,000 ML IV ONE
[2021-10-05 17:59] LABS: BLOOD UREA NITROGEN 25 MG/DL (7-18); CALCIUM LEVEL 8.9 MG/DL (8.8-10.2); CARBON DIOXIDE LEVEL 30 MEQ/L (21-32); CHLORIDE LEVEL 108 MEQ/L (98-107); CREATININE FOR GFR 1.13 MG/DL (0.70-1.30); FREE T4 1.37 NG/DL (0.76-1.46); GLOMERULAR FILTRATION RATE > 60.0 (>35); GLUCOSE, FASTING 99 MG/DL (70-100); POTASSIUM SERUM 4.6 MEQ/L (3.5-5.1); SODIUM LEVEL 143 MEQ/L (136-145)
== END ==
LOC: M PLALAB 14:58
PROVIDERS: ATTEND Nurse Practitioner Family
DX: E83.51 Hypocalcemia (principal); E89.0 Postprocedural hypothyroidism

== ENCOUNTER 2021-12-24 09:47 | Emergency (ER) | payer MEDICARE, OTHER ==
[~2021-12-24] VITALS: Ht 172.7 cm; Wt 92.6 kg
[~2021-12-24 09:47] MED LIST changes: -D31000TA2 PO; -LISI20TA20 PO; +LISI20TA37 PO; +VITA100093 PO
[2021-12-24 10:36] LABS: BASO # 0.1 10^3/uL (0.0-0.2); BASO % 0.6 % (0.0-1.0); EOS # 0.4 10^3/uL (0.0-0.5); EOS % 4.7 % (0.0-3.0); HEMATOCRIT 34.1 % (42.0-52.0); HEMOGLOBIN 11.2 g/dl (13.5-17.5); LYMPH # 1.4 10^3/uL (1.5-5.0); LYMPH % 17.4 % (24.0-44.0); MEAN CORPUSCULAR HEMOGLOBIN 29.2 pg (27.0-33.0); MEAN CORPUSCULAR HGB CONC 32.8 g/dl (32.0-36.5); MONO # 0.7 10^3/uL (0.0-0.8); NEUTROPHILS # 5.5 10^3/uL (1.5-8.5); NEUTROPHILS % 67.9 % (36.0-66.0); PLATELET COUNT, AUTOMATED 213 10^3/uL (150-450); RED BLOOD COUNT 3.83 10^6/uL (4.30-6.10); WHITE BLOOD COUNT 8.1 10^3/uL (4.0-10.0)
[2021-12-24 10:47] LABS: INR 0.99; PROTHROMBIN TIME 13.5 SECONDS (12.7-14.5)
[2021-12-24 10:48] LABS: PARTIAL THROMBOPLASTIN TIME 31.6 SECONDS (25.9-37.0)
[2021-12-24 10:56] LABS: CK-MB VALUE MASS 1.2 NG/ML (<3.6); MB/CK RELATIVE INDEX 2.22 (< OR =4)
[2021-12-24 11:05] LABS: ALBUMIN 3.1 GM/DL (3.2-5.2); ALT/SGPT 20 U/L (12-78); BILIRUBIN,DIRECT 0.3 MG/DL (0.0-0.2); BILIRUBIN,TOTAL 1.1 MG/DL (0.2-1.0); BLOOD UREA NITROGEN 26 MG/DL (7-18); CALCIUM LEVEL 8.7 MG/DL (8.8-10.2); CARBON DIOXIDE LEVEL 30 MEQ/L (21-32); CHLORIDE LEVEL 109 MEQ/L (98-107); CREATININE FOR GFR 1.06 MG/DL (0.70-1.30); FREE T4 1.55 NG/DL (0.76-1.46); GLOMERULAR FILTRATION RATE > 60.0 (>35); GLUCOSE, FASTING 112 MG/DL (70-100); LIPASE 83 U/L (73-393); SODIUM LEVEL 143 MEQ/L (136-145); TOTAL PROTEIN 5.8 GM/DL (6.4-8.2)
[2021-12-24] MEDS ORDERED: ISOVUE-370 76% 100ML VIAL As Ordered ONE (12:56)
[2021-12-24 14:45] VITALS: BP 134/66
== END 2021-12-24 15:32 | disposition home or self-care (01) ==
LOC: M ED 09:47
DX: S46.912A Strain of unspecified muscle, fascia and tendon at shoulder and upper arm level, left arm, initial encounter (principal); X58.XXXA Exposure to other specified factors, initial encounter; Y92.89 Other specified places as the place of occurrence of the external cause; I44.0 Atrioventricular block, first degree; I10 Essential (primary) hypertension; J45.909 Unspecified asthma, uncomplicated; E78.5 Hyperlipidemia, unspecified; G47.33 Obstructive sleep apnea (adult) (pediatric); Z85.46 Personal history of malignant neoplasm of prostate; Z79.899 Other long term (current) drug therapy; Z79.82 Long term (current) use of aspirin; Z79.890 Hormone replacement therapy
CPT/HCPCS: 36415; 71045; 71275; 80048; 80076; 82550; 82553; 83690; 84439; 84443; 84484; 85025; 85610; 85730; 93005; 93041; 94760; 99285; Q9967

== ENCOUNTER 2022-05-15 16:47 | Emergency (ER) | payer MEDICARE ==
[~2022-05-15] VITALS: Ht 170.2 cm; Wt 81.8 kg
[~2022-05-15 16:47] MED LIST changes: +ALBU2.5V10; -ALBU83IN
[2022-05-15] MEDS ORDERED: ISOVUE-370 76% 100ML VIAL As Ordered ONE (18:13)
[2022-05-15 18:14] LABS: BASO % 0.3 % (0.0-1.0); EOS # 0.1 10^3/uL (0.0-0.5); EOS % 0.4 % (0.0-3.0); HEMATOCRIT 39.3 % (42.0-52.0); HEMOGLOBIN 13.3 g/dl (13.5-17.5); LYMPH # 1.6 10^3/uL (1.5-5.0); LYMPH % 11.6 % (24.0-44.0); MEAN CORPUSCULAR HEMOGLOBIN 29.8 pg (27.0-33.0); MEAN CORPUSCULAR HGB CONC 33.8 g/dl (32.0-36.5); MEAN CORPUSCULAR VOLUME 87.9 fl (80.0-96.0); MONO # 1.2 10^3/uL (0.0-0.8); MONO % 8.9 % (2.0-8.0); NEUTROPHILS # 10.9 10^3/uL (1.5-8.5); NEUTROPHILS % 78.5 % (36.0-66.0); PLATELET COUNT, AUTOMATED 219 10^3/uL (150-450); RED BLOOD COUNT 4.47 10^6/uL (4.30-6.10); WHITE BLOOD COUNT 13.8 10^3/uL (4.0-10.0)
[2022-05-15 18:27] LABS: INR 1.04
[2022-05-15 18:28] LABS: PARTIAL THROMBOPLASTIN TIME 29.8 SECONDS (25.9-37.0)
[2022-05-15 18:42] LABS: ALBUMIN 3.4 GM/DL (3.2-5.2); ALT/SGPT 16 U/L (12-78); BILIRUBIN,DIRECT 0.3 MG/DL (0.0-0.2); BILIRUBIN,TOTAL 1.5 MG/DL (0.2-1.0); BLOOD UREA NITROGEN 18 MG/DL (7-18); CALCIUM LEVEL 8.2 MG/DL (8.8-10.2); CARBON DIOXIDE LEVEL 27 MEQ/L (21-32); CHLORIDE LEVEL 107 MEQ/L (98-107); CK-MB VALUE MASS 1.7 NG/ML (<3.6); GLOMERULAR FILTRATION RATE > 60.0 (>35); GLUCOSE, FASTING 139 MG/DL (70-100); LIPASE 142 U/L (73-393); MB/CK RELATIVE INDEX 2.46 (< OR =4); POTASSIUM SERUM 3.3 MEQ/L (3.5-5.1); SODIUM LEVEL 142 MEQ/L (136-145); TOTAL PROTEIN 6.2 GM/DL (6.4-8.2)
[2022-05-15 18:50] LABS: RSV AMPLIFICATION NEGATIVE (NEGATIVE)
[2022-05-15 20:40] VITALS: BP 158/76
== END 2022-05-15 20:55 | disposition home or self-care (01) ==
LOC: M ED 16:47
DX: K76.89 Other specified diseases of liver (principal); K86.2 Cyst of pancreas; N20.0 Calculus of kidney; I44.0 Atrioventricular block, first degree; I10 Essential (primary) hypertension; G47.33 Obstructive sleep apnea (adult) (pediatric); J45.909 Unspecified asthma, uncomplicated; Z79.82 Long term (current) use of aspirin; Z79.899 Other long term (current) drug therapy; Z79.890 Hormone replacement therapy; Z87.891 Personal history of nicotine dependence; Z82.49 Family history of ischemic heart disease and other diseases of the circulatory system
CPT/HCPCS: 36415; 71045; 74177; 80047; 80048; 80076; 81001; 82550; 82553; 83605; 83690; 84484; 85025; 85610; 85730; 87631; 93005; 93041; 99285; Q9967

== ENCOUNTER → 2022-10-13 | Outpatient (CLI) | payer MEDICARE, OTHER ==
[2022-10-13 18:39] LABS: ALBUMIN 3.6 G/DL (3.2-5.2); ALKALINE PHOSPHATASE 136 U/L (46-116); ALT/SGPT 16 U/L (7.0-40); AST/SGOT 24 U/L (<34); BILIRUBIN,TOTAL 1.5 MG/DL (0.3-1.2); BLOOD UREA NITROGEN 28 MG/DL (9-23); CALCIUM LEVEL 8.6 MG/DL (8.3-10.6); CARBON DIOXIDE LEVEL 24 MMOL/L (20-31); CHLORIDE LEVEL 104 MMOL/L (98-107); CREATININE FOR GFR 1.08 MG/DL (0.70-1.30); GLOMERULAR FILTRATION RATE > 60.0 (>35); GLUCOSE, FASTING 95 MG/DL (74-106); POTASSIUM SERUM 4.2 MMOL/L (3.5-5.1); SODIUM LEVEL 143 MMOL/L (136-145); TOTAL PROTEIN 6.4 G/DL (5.7-8.2)
== END ==
LOC: M PLALAB 15:05
PROVIDERS: ATTEND Family Medicine
DX: R60.9 Edema, unspecified (principal)

== ENCOUNTER → 2022-11-10 | Outpatient (REF) | payer OTHER | LOC: M SFHCPLAZ 11:48 | PROVIDERS: ATTEND Family Medicine | DX: Z53.9 Procedure and treatment not carried out, unspecified reason (principal) ==

== ENCOUNTER → 2023-01-12 | Outpatient (CLI) | payer MEDICARE, OTHER | LOC: M CARPUL 08:26 | PROVIDERS: ATTEND Family Medicine | DX: R60.9 Edema, unspecified (principal) ==

== ENCOUNTER → 2023-02-13 | Outpatient (CLI) | payer OTHER ==
[2023-02-13 14:37] LABS: CHOLESTEROL RISK RATIO 3.67 (<5); HDL CHOLESTEROL 30.2 MG/DL (>40); LDL CHOLESTEROL 59.2 MG/DL (<100); NON-HDL-C 80.8 MG/DL
[2023-02-13 14:39] LABS: THYROID STIMULATING HORMONE 0.6 uIU/ML (0.55-4.78)
[2023-02-13 14:40] LABS: FERRITIN 111.1 NG/ML (10.5-307.3); TOTAL 25(OH) VITAMIN D 32.8 NG/ML (20.0-100.0)
[2023-02-13 14:44] LABS: HEMOGLOBIN A1c 5.7 % (4.0-6.0)
[2023-02-13 15:07] LABS: PTH INTACT 13.2 PG/ML (18.5-88.0)
== END ==
LOC: M PLALAB 11:55
PROVIDERS: ATTEND Family Medicine
DX: I10 Essential (primary) hypertension (principal); Z85.46 Personal history of malignant neoplasm of prostate; R73.01 Impaired fasting glucose; D50.8 Other iron deficiency anemias; E78.6 Lipoprotein deficiency; E89.0 Postprocedural hypothyroidism; E55.9 Vitamin D deficiency, unspecified; E20.9 Hypoparathyroidism, unspecified
CPT/HCPCS: 36415; 80061; 82043; 82306; 82728; 83036; 83970; 84443; G0103

== ENCOUNTER → 2023-09-21 | Outpatient (REF) | payer OTHER | LOC: M SFHCPLAZ 15:14 | PROVIDERS: ATTEND Family Medicine | DX: Z20.822 Contact with and (suspected) exposure to COVID-19 (principal) ==

== ENCOUNTER 2023-10-25 12:05 | Emergency (ER) | payer BC, MEDICARE, OTHER ==
[~2023-10-25] VITALS: Ht 172.7 cm; Wt 90.5 kg
[2023-10-25 12:11] VITALS: TEMP 97.9
[2023-10-25 14:39] LABS: BASO % 0.1 % (0.0-1.0); EOS % 0.1 % (0.0-3.0); HEMATOCRIT 38.6 % (42.0-52.0); HEMOGLOBIN 12.6 g/dl (13.5-17.5); LYMPH # 1.1 10^3/uL (1.5-5.0); LYMPH % 8.4 % (24.0-44.0); MEAN CORPUSCULAR HEMOGLOBIN 28.8 pg (27.0-33.0); MEAN CORPUSCULAR HGB CONC 32.6 g/dl (32.0-36.5); MEAN CORPUSCULAR VOLUME 88.1 fl (80.0-96.0); NEUTROPHILS # 10.5 10^3/uL (1.5-8.5); NEUTROPHILS % 83.1 % (36.0-66.0); PLATELET COUNT, AUTOMATED 198 10^3/uL (150-450); RED BLOOD COUNT 4.38 10^6/uL (4.30-6.10); WHITE BLOOD COUNT 12.7 10^3/uL (4.0-10.0)
[2023-10-25 14:59] LABS: CK-MB VALUE MASS 4.2 NG/ML (<3.6)
[2023-10-25 15:01] LABS: ALBUMIN 3.1 G/DL (3.2-5.2); ALKALINE PHOSPHATASE 113 U/L (46-116); ALT/SGPT 15 U/L (7.0-40); AST/SGOT 18 U/L (<34); BILIRUBIN,DIRECT 0.4 MG/DL (<0.4); BILIRUBIN,TOTAL 0.9 MG/DL (0.3-1.2); BLOOD UREA NITROGEN 33 MG/DL (9-23); CALCIUM LEVEL 8.3 MG/DL (8.3-10.6); CARBON DIOXIDE LEVEL 28 MMOL/L (20-31); CHLORIDE LEVEL 109 MMOL/L (98-107); CPK CREATINE PHOSPHOKINASE 89 U/L (46-171); CREATININE FOR GFR 0.93 MG/DL (0.70-1.30); GLOMERULAR FILTRATION RATE > 60.0 (>35); GLUCOSE, FASTING 96 MG/DL (74-106); INR 1.15; MB/CK RELATIVE INDEX 4.71 (< OR =4); POTASSIUM SERUM 3.7 MMOL/L (3.5-5.1); PROTHROMBIN TIME 14.4 SECONDS (12.5-14.5); SODIUM LEVEL 143 MMOL/L (136-145)
[2023-10-25 15:02] LABS: PARTIAL THROMBOPLASTIN TIME 29.2 SECONDS (24.8-34.2)
[2023-10-25 15:03] LABS: FREE T4 1.54 NG/DL (0.89-1.76); THYROID STIMULATING HORMONE 0.036 uIU/ML (0.55-4.78)
[2023-10-25 15:11] LABS: RSV AMPLIFICATION NEGATIVE (NEGATIVE)
[2023-10-25 16:27] LABS: CK-MB VALUE MASS 3.6 NG/ML (<3.6)
[2023-10-25 16:28] LABS: MB/CK RELATIVE INDEX 3.95 (< OR =4)
[2023-10-25 18:03] LABS: CK-MB VALUE MASS 4.2 NG/ML (<3.6)
[2023-10-25 18:06] LABS: MB/CK RELATIVE INDEX 4.82 (< OR =4)
[2023-10-25] MEDS ORDERED: OSELTAMIVIR PHOSPHATE 75 MG CAP (TAMIFLU) PO ONE (18:40)
[2023-10-25 18:45] VITALS: BP 134/79; O2SAT 96
[2023-10-25] MEDS ORDERED: OSEL75CA PO (18:56)
== END 2023-10-25 19:26 | disposition home or self-care (01) ==
LOC: M ED 14:55
DX: J09.X2 Influenza due to identified novel influenza A virus with other respiratory manifestations (principal); I10 Essential (primary) hypertension; D50.9 Iron deficiency anemia, unspecified; M19.90 Unspecified osteoarthritis, unspecified site; N52.9 Male erectile dysfunction, unspecified; Z85.46 Personal history of malignant neoplasm of prostate; G47.33 Obstructive sleep apnea (adult) (pediatric); J43.9 Emphysema, unspecified; E03.9 Hypothyroidism, unspecified; K86.2 Cyst of pancreas; Z85.238 Personal history of other malignant neoplasm of thymus; Z95.0 Presence of cardiac pacemaker; F17.200 Nicotine dependence, unspecified, uncomplicated; Z79.82 Long term (current) use of aspirin; Z79.899 Other long term (current) drug therapy

== ENCOUNTER → 2024-06-27 | Outpatient (CLI) | payer MEDICARE ==
[~2024-06-27] MED LIST changes: +OSEL75CA PO
[2024-06-27 13:35] LABS: HEMATOCRIT 39.8 % (42.0-52.0); HEMOGLOBIN 12.8 g/dl (13.5-17.5); MEAN CORPUSCULAR HEMOGLOBIN 29.2 pg (27.0-33.0); MEAN CORPUSCULAR HGB CONC 32.2 g/dl (32.0-36.5); MEAN CORPUSCULAR VOLUME 90.9 fl (80.0-96.0); PLATELET COUNT, AUTOMATED 272 10^3/uL (150-450); RED BLOOD COUNT 4.38 10^6/uL (4.30-6.10); WHITE BLOOD COUNT 7.1 10^3/uL (4.0-10.0)
[2024-06-27 13:57] LABS: HEMOGLOBIN A1c 5.6 % (4.0-6.0)
[2024-06-27 14:12] LABS: ALBUMIN 3.4 G/DL (3.2-5.2); ALKALINE PHOSPHATASE 133 U/L (46-116); ALT/SGPT 14 U/L (7.0-40); AST/SGOT 17 U/L (<34); BILIRUBIN,TOTAL 0.9 MG/DL (0.3-1.2); BLOOD UREA NITROGEN 23 MG/DL (9-23); CALCIUM LEVEL 8.8 MG/DL (8.3-10.6); CARBON DIOXIDE LEVEL 31 MMOL/L (20-31); CHLORIDE LEVEL 106 MMOL/L (98-107); CHOLESTEROL LEVEL 138 MG/DL (<200); CHOLESTEROL RISK RATIO 4.28 (<5); GLOMERULAR FILTRATION RATE > 60.0 (>35); GLUCOSE, FASTING 110 MG/DL (74-106); HDL CHOLESTEROL 32.2 MG/DL (>40); LDL CHOLESTEROL 76.8 MG/DL (<100); NON-HDL-C 105.8 MG/DL; SODIUM LEVEL 140 MMOL/L (136-145); TOTAL PROTEIN 6.3 G/DL (5.7-8.2); TRIGLYCERIDES LEVEL 145 MG/DL (<150)
== END ==
LOC: M PLALAB 10:37
PROVIDERS: ATTEND Family Medicine
DX: D50.8 Other iron deficiency anemias (principal); G47.33 Obstructive sleep apnea (adult) (pediatric); E78.5 Hyperlipidemia, unspecified; E55.9 Vitamin D deficiency, unspecified; E20.9 Hypoparathyroidism, unspecified; E83.51 Hypocalcemia; E78.6 Lipoprotein deficiency; R73.01 Impaired fasting glucose

== ENCOUNTER 2024-08-05 11:38 | Emergency (ER) | payer MEDICARE ==
[~2024-08-05] VITALS: Ht 167.6 cm; Wt 82.1 kg
[~2024-08-05 11:38] MED LIST changes: +GABA-1172 PO; -GABA-282 PO
[2024-08-05] MEDS: hydroCHLOROthiazide 12.5 MG CAPSULE PO ONE (13:11)
[2024-08-05 13:40] LABS: BASO # 0.1 10^3/uL (0.0-0.2); BASO % 0.7 % (0.0-1.0); EOS # 0.1 10^3/uL (0.0-0.5); EOS % 1.2 % (0.0-3.0); HEMATOCRIT 43.7 % (42.0-52.0); HEMOGLOBIN 14.3 g/dl (13.5-17.5); LYMPH # 0.9 10^3/uL (1.5-5.0); LYMPH % 11.8 % (24.0-44.0); MEAN CORPUSCULAR HEMOGLOBIN 29.5 pg (27.0-33.0); MEAN CORPUSCULAR HGB CONC 32.7 g/dl (32.0-36.5); MEAN CORPUSCULAR VOLUME 90.3 fl (80.0-96.0); MONO # 0.5 10^3/uL (0.0-0.8); MONO % 7.2 % (2.0-8.0); NEUTROPHILS # 5.8 10^3/uL (1.5-8.5); NEUTROPHILS % 78.7 % (36.0-66.0); PLATELET COUNT, AUTOMATED 217 10^3/uL (150-450); RED BLOOD COUNT 4.84 10^6/uL (4.30-6.10); WHITE BLOOD COUNT 7.4 10^3/uL (4.0-10.0)
[2024-08-05 14:08] LABS: ALBUMIN 3.6 G/DL (3.2-5.2); ALKALINE PHOSPHATASE 124 U/L (46-116); ALT/SGPT 11 U/L (7.0-40); AST/SGOT 19 U/L (<34); BILIRUBIN,DIRECT 0.6 MG/DL (<0.4); BILIRUBIN,TOTAL 2.1 MG/DL (0.3-1.2); BLOOD UREA NITROGEN 20 MG/DL (9-23); CALCIUM LEVEL 8.3 MG/DL (8.3-10.6); CARBON DIOXIDE LEVEL 27 MMOL/L (20-31); CHLORIDE LEVEL 107 MMOL/L (98-107); CREATININE FOR GFR 1.14 MG/DL (0.70-1.30); GLOMERULAR FILTRATION RATE > 60.0 (>35); GLUCOSE, FASTING 114 MG/DL (74-106); MAGNESIUM LEVEL 1.9 MG/DL (1.8-2.4); POTASSIUM SERUM 3.8 MMOL/L (3.5-5.1); SODIUM LEVEL 142 MMOL/L (136-145); TOTAL PROTEIN 6.5 G/DL (5.7-8.2)
[2024-08-05 14:11] LABS: THYROID STIMULATING HORMONE 73.539 uIU/ML (0.55-4.78)
[2024-08-05 16:30] VITALS: BP 165/81; TEMP 96.9; O2SAT 98
[2024-08-05] MEDS ORDERED: XALA0.007 OU (16:33)
[2024-08-05] MEDS ORDERED: ROSU20TA86 PO (16:33)
[2024-08-05] MEDS ORDERED: LISI20TA35 PO (16:33)
[2024-08-05] MEDS ORDERED: HOME MED LIST COMPLETE! XX SCH (16:35)
== END 2024-08-05 16:36 | disposition home or self-care (01) ==
LOC: M ED 11:38
DX: R44.3 Hallucinations, unspecified (principal); R41.0 Disorientation, unspecified; R94.31 Abnormal electrocardiogram [ECG] [EKG]; I10 Essential (primary) hypertension; Z85.46 Personal history of malignant neoplasm of prostate; Z79.899 Other long term (current) drug therapy

== ENCOUNTER 2024-10-19 19:18 | Emergency (ER) | payer MEDICARE ==
[~2024-10-19] VITALS: Ht 172.7 cm; Wt 84.1 kg
[~2024-10-19 19:18] MED LIST changes: +LISI20TA35 PO; +ROSU20TA86 PO; +XALA0.007 OU
[2024-10-19 19:46] LABS: BASO # 0.1 10^3/uL (0.0-0.2); BASO % 0.8 % (0.0-1.0); EOS # 0.3 10^3/uL (0.0-0.5); EOS % 3.6 % (0.0-3.0); HEMATOCRIT 38.6 % (42.0-52.0); HEMOGLOBIN 12.5 g/dl (13.5-17.5); LYMPH # 1.4 10^3/uL (1.5-5.0); LYMPH % 17.9 % (24.0-44.0); MEAN CORPUSCULAR HEMOGLOBIN 29.4 pg (27.0-33.0); MEAN CORPUSCULAR HGB CONC 32.4 g/dl (32.0-36.5); MEAN CORPUSCULAR VOLUME 90.8 fl (80.0-96.0); MONO # 0.8 10^3/uL (0.0-0.8); MONO % 10.2 % (2.0-8.0); NEUTROPHILS # 5.1 10^3/uL (1.5-8.5); NEUTROPHILS % 67.1 % (36.0-66.0); PLATELET COUNT, AUTOMATED 215 10^3/uL (150-450); RED BLOOD COUNT 4.25 10^6/uL (4.30-6.10); WHITE BLOOD COUNT 7.5 10^3/uL (4.0-10.0)
[2024-10-19 20:23] LABS: BLOOD UREA NITROGEN 25 MG/DL (9-23); CARBON DIOXIDE LEVEL 28 MMOL/L (20-31); CHLORIDE LEVEL 109 MMOL/L (98-107); CK-MB VALUE MASS 1.7 NG/ML (<3.6); CPK CREATINE PHOSPHOKINASE 104 U/L (46-171); CREATININE FOR GFR 1.08 MG/DL (0.70-1.30); GLOMERULAR FILTRATION RATE > 60.0 (>35); GLUCOSE, FASTING 128 MG/DL (74-106); MB/CK RELATIVE INDEX 1.63 (< OR =4); POTASSIUM SERUM 4.4 MMOL/L (3.5-5.1); SODIUM LEVEL 144 MMOL/L (136-145)
[2024-10-19 21:03] VITALS: BP 155/89; TEMP 97.8; O2SAT 97
== END 2024-10-19 21:12 | disposition home or self-care (01) ==
LOC: EDBD 19:18 → M ED 19:18
DX: R07.89 Other chest pain (principal); I10 Essential (primary) hypertension; E78.5 Hyperlipidemia, unspecified; D64.9 Anemia, unspecified; Z85.46 Personal history of malignant neoplasm of prostate; Z85.850 Personal history of malignant neoplasm of thyroid; Z79.899 Other long term (current) drug therapy

== ENCOUNTER 2024-11-27 06:21 | Day surgery (SDC) | payer OTHER, MEDICARE ==
[2024-11-13] MEDS: LIDOCAINE 3.5 % 1ML OPHTH TOPICAL GEL OU ONE (07:38)
[~2024-11-27] VITALS: Ht 167.6 cm; Wt 87.5 kg
[~2024-11-27 06:21] MED LIST changes: +CYCLOPENTOLATE 1% OPHTH SOLN 2ML BTL OD SCH; +KP F1200 PO; +PHENYLEPHRINE 10% OPHTH SOL 5ML OD PRN; +PHENYLEPHRINE 2.5% OPHTH SOL 2ML OD SCH; +TROPICAMIDE 1% OPHTH SOLN 15ML OD SCH
[2024-11-27] MEDS: OFLOXACIN 0.3 % (OCUFLOX) OPTH SOL 5ML OD ONE ×2 (06:41→06:49)
[2024-11-27] MEDS: LIDOCAINE 3.5 % 1ML OPHTH TOPICAL GEL OU ONE (06:41)
[2024-11-27] MEDS: TROPICAMIDE 1% OPHTH SOLN 15ML OD SCH (06:42)
[2024-11-27] MEDS: CYCLOPENTOLATE 1% OPHTH SOLN 2ML BTL OD SCH (06:42)
[2024-11-27] MEDS: PHENYLEPHRINE 2.5% OPHTH SOL 2ML OD SCH (06:42)
[2024-11-27] MEDS ORDERED: MIDAZOLAM INJ 2MG/2ML VIAL As Ordered ONE (07:05)
[2024-11-27] MEDS: LIDOCAINE 1% SDV 5ML VIAL As Ordered ONE (07:47)
[2024-11-27] MEDS: BSS IRRIG/VANCO(10MG)/TOBRA(5MG)/EPINEPH(1:1000-0.5CC)500ML BAG-ORONLY As Ordered ONE (07:48)
[2024-11-27] MEDS: CEFUROXIME 1MG/0.1ML INTRACAMERAL INJ As Ordered ONE (07:48)
[2024-11-27] MEDS ORDERED: ACETYLCHOLINE OPHTH SOLN 1% 2ML (MIOCHOL-E) As Ordered ONE (08:08)
[2024-11-27 08:12] VITALS: BP 159/82; TEMP 97.4; O2SAT 98
== END 2024-11-27 08:41 | disposition home or self-care (01) ==
LOC: M SDC 06:21
PROVIDERS: ATTEND Ophthalmology
DX: H25.11 Age-related nuclear cataract, right eye (principal); H40.1111 Primary open-angle glaucoma, right eye, mild stage; I10 Essential (primary) hypertension; E03.9 Hypothyroidism, unspecified; E78.00 Pure hypercholesterolemia, unspecified; G47.30 Sleep apnea, unspecified; Z79.899 Other long term (current) drug therapy; Z79.890 Hormone replacement therapy; Z90.89 Acquired absence of other organs; Z90.49 Acquired absence of other specified parts of digestive tract; Z85.46 Personal history of malignant neoplasm of prostate; Z92.3 Personal history of irradiation; J44.9 Chronic obstructive pulmonary disease, unspecified; Z95.0 Presence of cardiac pacemaker; Z85.850 Personal history of malignant neoplasm of thyroid; Z86.73 Personal history of transient ischemic attack (TIA), and cerebral infarction without residual deficits
CPT/HCPCS: 66991; C1783; J0697; J2250; V2632

== ENCOUNTER 2025-01-01 11:05 | Emergency (ER) | payer OTHER, MEDICARE ==
[~2025-01-01 11:05] MED LIST changes: -CYCLOPENTOLATE 1% OPHTH SOLN 2ML BTL OD SCH; -PHENYLEPHRINE 10% OPHTH SOL 5ML OD PRN; -PHENYLEPHRINE 2.5% OPHTH SOL 2ML OD SCH; -TROPICAMIDE 1% OPHTH SOLN 15ML OD SCH
[2025-01-01 12:59] LABS: BLOOD UREA NITROGEN 21 MG/DL (9-23); CALCIUM LEVEL 6.8 MG/DL (8.3-10.6); CARBON DIOXIDE LEVEL 27 MMOL/L (20-31); CHLORIDE LEVEL 106 MMOL/L (98-107); CREATININE FOR GFR 1.04 MG/DL (0.70-1.30); GLOMERULAR FILTRATION RATE > 60.0 (>35); GLUCOSE, FASTING 100 MG/DL (74-106); POTASSIUM SERUM 4.1 MMOL/L (3.5-5.1); SODIUM LEVEL 143 MMOL/L (136-145)
[2025-01-01 14:06] VITALS: BP 171/80; TEMP 97.8; O2SAT 98
== END 2025-01-01 14:08 | disposition home or self-care (01) ==
LOC: M ED 11:56
DX: I10 Essential (primary) hypertension (principal); I45.89 Other specified conduction disorders; I45.81 Long QT syndrome; Z79.899 Other long term (current) drug therapy

== ENCOUNTER 2025-10-11 14:19 | Emergency (ER) | payer OTHER, MEDICARE ==
[~2025-10-11] VITALS: Ht 167.6 cm; Wt 81.8 kg
[2025-10-11] MEDS: ACETAMINOPHEN *IV* 1,000 MG in IV 1 EA IV ONE (16:21)
[2025-10-11 16:27] LABS: BASO # 0.1 10^3/uL (0.0-0.2); BASO % 0.6 % (0.0-1.0); EOS # 0.2 10^3/uL (0.0-0.5); EOS % 2.4 % (0.0-3.0); LYMPH # 1.2 10^3/uL (1.5-5.0); LYMPH % 14.0 % (24.0-44.0); MONO # 0.9 10^3/uL (0.0-0.8); MONO % 10.7 % (2.0-8.0); NEUTROPHILS # 6.1 10^3/uL (1.5-8.5); NEUTROPHILS % 72.1 % (36.0-66.0); PLATELET COUNT, AUTOMATED 213 10^3/uL (150-450)
[2025-10-11 16:56] LABS: ALT/SGPT 11 U/L (7.0-40); AST/SGOT 16 U/L (<34); C REACTIVE PROTEIN QUANTITATIV < 0.50 MG/DL (<1.0); CALCIUM LEVEL 7.5 MG/DL (8.3-10.6); CARBON DIOXIDE LEVEL 28 MMOL/L (20-31); CHLORIDE LEVEL 106 MMOL/L (98-107); CREATININE FOR GFR 0.95 MG/DL (0.70-1.30); GLOMERULAR FILTRATION RATE 77.0 (>35); POTASSIUM SERUM 4.1 MMOL/L (3.5-5.1); SODIUM LEVEL 144 MMOL/L (136-145)
[2025-10-11 20:47] VITALS: O2SAT 97
[2025-10-11 21:00] VITALS: BP 167/91; TEMP 97.7; O2SAT 98
== END 2025-10-11 21:21 | disposition home or self-care (01) ==
LOC: M ED 14:19
DX: M16.12 Unilateral primary osteoarthritis, left hip (principal); M77.32 Calcaneal spur, left foot; I10 Essential (primary) hypertension; D50.9 Iron deficiency anemia, unspecified; E78.5 Hyperlipidemia, unspecified; E03.9 Hypothyroidism, unspecified; Z87.891 Personal history of nicotine dependence; Z79.899 Other long term (current) drug therapy
CPT/HCPCS: 72110; 72190; 73502; 73552; 73590; 73610; 73630; 80048; 80076; 82330; 84145; 84550; 85025; 85652; 86140; 93971; 96365; 99284; J0134